=== PATIENT | female | born 1960 | race Caucasian/White ===

== ENCOUNTER → 2019-01-12 | Day surgery (SDC) | payer OTHER ==
[2019-01-11 10:59] LABS: BASOPHILS # (AUTO) 0.1 (0.0-0.1); BASOPHILS % 1.2 % (0.0-1.0); EOSINOPHILS # (AUTO) 0.1 (0.0-0.4); EOSINOPHILS % 1.2 % (0.0-6.0); HEMATOCRIT 40.5 % (34.2-44.1); HEMOGLOBIN 13.9 g/dL (12.0-16.0); LYMPHOCYTES % 24.3 % (18.0-39.1); MEAN CORPUSCULAR HEMOGLOBIN 34.8 pg (28-32); MEAN CORPUSCULAR HGB CONC 34.3 g/dL (31-35); MEAN CORPUSCULAR VOLUME 101.5 fL (81-99); MONOCYTES # (AUTO) 0.4 (0.2-0.8); MONOCYTES % 8.6 % (4.4-11.3); NEUTROPHILS # (AUTO) 2.6 (2.1-6.9); NEUTROPHILS % 64.5 % (38.7-80.0); PLATELET COUNT 246 x10e3/uL (140-360); RED BLOOD COUNT 3.99 x10e6/uL (3.6-5.1); RED CELL DISTRIBUTION WIDTH 15.4 % (11.7-14.4)
[~2019-01-12] MED LIST: ACETAMINOPHEN 1000 MG/100 ML IV ONE; BUPIVACAINE HCL 0.5% INJ 30 ML VIAL INJ ONE; CEFAZOLIN SOD 2 GM/D5W 50ML 50 ML IV ONE; DEXAMETHASONE SOD PHOS INJ 4 MG/ML VIAL ONE; FEMARA2.5 MG PO; FENTANYL CITRATE/PF 100MCG/2 ML INJ ONE; GABAPENTIN100 MG PO; LIDOCAINE HCL 2% LOCAL INJ 5 ML SDV VIAL INJ ONE; LISINOPRIL10 MG PO; METOPROLOL SUCC25 MG PO; MIDAZOLAM HCL 2 MG/2 ML VIAL ONE; NEXIUM40 MG PO; ONDANSETRON HCL INJ 2MG/ML 2ML 2 MG/ML VIAL ONE; PROPOFOL IV EMULSION 10 MG/ML 20 ML VIAL ONE; SEVOFLURANE INHAL SOLN 250 ML PEN BTL ONE; TRAZODONE HCL100 MG PO
--- OUTSIDE RECORDS SUMMARY | 2019-01-12 06:35 | XMS REPORT | Clinical Summary ---
Author Author [facility] Address Unknown Phone Unavailable Care Team Providers Care Head Of Precision Targeting Name Role Phone Camila Stringer PCP Allergies Comments Active Allergy Reactions Severity Noted Date Codeine Nausea And High 10/27/2014 Vomiting pepto bismol, codeine cough syrup Other Nausea And High 10/30/2014 Vomiting Bismuth Subsalicylate Nausea And High 08/29/2015 Vomiting Medications End Date Status Medication Sig Dispensed Refills Start Date Active letrozole (FEMARA) 2.5 mg Take 2.5 mg 0 tablet by mouth daily. Active metoprolol (LOPRESSOR) 50 Take 25 mg by 0 MG tablet mouth daily . Active amLODIPine (NORVASC) 10 Take 10 mg by 0 MG tablet mouth daily . Active lisinopril Take 20 mg by 0 (PRINIVIL,ZESTRIL) 20 MG mouth daily. tablet Active methocarbamol (ROBAXIN) Take 500 mg 0 500 MG tablet by mouth 4 (four) times daily. Active naproxen (NAPROSYN) 500 Take 500 mg 0 MG tablet by mouth 2 (two) times daily with breakfast and dinner. Active multivitamin per tablet Take 1 tablet 0 by mouth daily. 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 Capsular contracture of breast implant 05/01/2015 Acquired absence of breast 05/01/2015 History of breast cancer 05/01/2015 Angina pectoris 02/08/2015 Personal history of malignant neoplasm of breast 10/31/2014 Breast cancer 10/31/2014 Immunizations Name Dates Previously Given Next Due Influenza Three-TIV PF 5+ 09/11/2016 YR Influenza Three-TIV PF 5+ 08/24/2015 YRS Pneumococcal 08/31/2015 Polysaccharide (Pneumovax) Family History Medical History Relation Name Comments High blood pressure Mother Relation Name Status Comments Mother Social History Date Tobacco Use Types Packs/Day Years Used Former Smoker 17 Tobacco Cessation: Counseling Given: No Comments: quit smoking 2015 Alcohol Use Drinks/Week oz/Week Comments Yes 10 Glasses of 6.0 rarely - "2 when I go out with my friends" wine Sex Assigned at Date Recorded Not on file Industry Job Start Date Occupation Not on file Not on file Not on file Travel End Travel History Travel Start No recent travel history available. Last Filed Vital Signs Not on file Plan of Treatment Not on file Implants Device Identifier Shelf Expiration Date Model / Serial / Lot Implanted Type Area Manufactur er 09/25/2018 354-9212 / [id number] / [id number] Tissue Exp,Contour Cpx4 Plastics Left: Breast MENTOR Siltexsiltex Medium Height Style REGGIE 9200 350cc - [id number] Implanted: Qty: 1 on 10/31/2014 by Barrera Lamar III, MD 09/25/2018 354-9212 / [id number] / [id number] Tissue Exp,Contour Cpx4 Plastics Right: Breast MENTOR Siltexsiltex Medium Height Style REGGIE 9200 350cc - [id number] Implanted: Qty: 1 on 10/31/2014 by Barrera Lamar III, MD 07/15/2018 354-1208 / [id number] / [id number] Imp Mamm Mem Shape Mm 280cc - Plastics Right: Breast MENTOR:AES [id number] THETICS Implanted: Qty: 1 on 09/09/2016 by Barrera Alvarado III, MD 03/14/2019 354-1208 / [id number] / [id number] Imp Mamm Mem Shape Mm 280cc - Plastics Left: Breast MENTOR:AES [id number] THETICS Implanted: Qty: 1 on 09/09/2016 by Barrera Alvarado III, MD 11/30/2021 [id number] / [id number] / [id number] Imp Mamm Rnd Mod Plus Gel 325 Plastics Left: Breast MENTOR:AES 350-3251bc - [id number] THETICS Implanted: Qty: 1 on 02/03/2017 by Barrera Alvarado III, MD 11/30/2021 350-3251BC / [id number] / [id number] Imp Mamm Rnd Mod Plus Gel 325 Plastics Right: Breast MENTOR:AES 350-3251bc - [id number] THETICS Implanted: Qty: 1 on 02/03/2017 by Barrera Alvarado III, MD 06/24/2018 [id number] / / [id number] Alloderm Select Tissue Matrix Tissue Right: Breast LIFECELL [id number] Cm Graft/Subs Implanted: Qty: 1 on 09/09/2016 by Barrera Webb III, MD 06/14/2018 [id number] / / [id number] Alloderm Select Tissue Matrix Rtu Tissue Left: Breast LIFECELL 16 X 20 Cm Graft/Subs Implanted: Qty: 1 on 09/09/2016 by Barrera Webb III, MD 09/04/2019 334-1202 / [id number] / [id number] [place] Memory Shape Breast Implant Left: Breast MENTOR Medium Annalee, High Profile Implanted: Qty: 1 on 05/01/2015 by Barrera Lamar III, MD 08/09/2019 334-1202 / [id number] / [id number] Memory Shape Breast Implant Medium Right: Breast MENTOR Height, High Profile Implanted: Qty: 1 on 05/01/2015 by Barrera Lamar III, MD 05/25/2018 [id number] / / [id number] Alloderm Select Tissue Matrix Right: Breast LIFECELL Contour Medium Perforated Thin Implanted: Qty: 1 on 02/03/2017 by Barrera Lamar III, MD Explanted: Results Not on fileafter 01/11/2018 Insurance Payer Benefit Subscriber ID Type Phone Address Plan / Group MEDICAID MEDICAID xxxxxxxxx Medicaid [place] Advance Directives For more information, please contact: [address] [address] Date Inactivated Comments Code Status Date Activated 02/03/2017 5:12 PM Full Code 02/03/2017 6:34 AM This code status was determined by: Patient 09/11/2016 1:41 PM Full Code 09/09/2016 9:50 AM This code status was determined by: Patient 05/02/2015 5:18 PM Full Code 05/01/2015 4:44 PM This code status was determined by: Patient 11/14/2014 5:53 PM Full Code 10/31/2014 6:01 AM This code status was determined by: Patient
--- OUTSIDE RECORDS SUMMARY | 2019-01-12 06:38 | XMS REPORT | Summary of Care ---
Author Author [facility] Organization [facility] Address Unknown Phone Unavailable Encounter HQ Annientr_alidung(FIN) [id number] Date(s): 10/01/17 - 10/02/17 [facility] [address] [facility], [address] [place] [phone] Vital Signs No data available for this section Problem List Condition Effective Dates Status Health Status Informant Anxiety(Confirmed) Resolved Breast Active cancer(Confirmed) Clostridium Resolved difficile(Confirmed) Clostridium Active difficile(Confirmed) 1 Depression(Confirmed Resolved ) Hypertension(Confirm Resolved ed) 1Problem added by Discern Expert. Allergies, Adverse Reactions, Alerts Substance Reaction Severity Status NKDA Active Medications No data available for this section Results No data available for this section Immunizations Given and Recorded Vaccine Date Status Refusal Reason pneumococcal 23-valent vaccine 01/22/16 Given influenza virus vaccine, inactivated 08/10/14 Given Procedures Procedure Date Related Diagnosis Body Site Mastectomy1 Operation 1Bilateral Social History Social History Type Response Alcohol Current, Frequency: 1-2 times per week. Smoking Status Former smoker; Type: Cigarettes; Previous treatment: None; Ready to change: Yes; Concerns about tobacco use in household: Yes; Exposure to Tobacco Smoke None; Cigarette Smoking Last 365 Days Yes; Reg Smoking Cessation Counseling Yes; Tobacco use per day: 1; Number of years: 25; Total pack years: 25; Started at age: 1.0; Stopped at age: 1; Assessment and Plan No data available for this section
--- OUTSIDE RECORDS SUMMARY | 2019-01-12 06:38 | XMS REPORT | Summary of Care ---
Author Author [facility] Organization [facility] Address Unknown Phone Unavailable Encounter HQ Annientr_caty(FIN) [id number] Date(s): 10/28/17 - 10/29/17 [facility] Neurosurgery [facility] [address] [facility], [address] [place] [phone] Vital Signs No data available for this [...]
--- OUTSIDE RECORDS SUMMARY | 2019-01-12 06:38 | XMS REPORT | Summary of Care ---
Author Author [facility] Organization [facility] Address Unknown Phone Unavailable Encounter HQ Virginiar_caty(FIN) [id number] Date(s): 11/03/17 - 11/03/17 [facility] [address] [facility], [address] [place] [phone] Attending Physician: Art Ricardo MD Vital Signs No data available for this [...] Procedures Procedure Date Related Diagnosis Body Site Status Mastectomy1 Completed Operation Completed 1Bilateral Social History Social History Type Response [...] at age: 1.0; Stopped at age: 1; entered on: 04/15/17 Assessment and Plan No data available for this section
--- OUTSIDE RECORDS SUMMARY | 2019-01-12 06:38 | XMS REPORT | Summary of Care ---
Author Author [facility] Organization [facility] Neurosurgery [facility] Address Unknown Phone Unavailable Encounter HQ Virginiar_caty(FIN) [id number] Date(s): 10/28/17 - 10/29/17 [facility] [address], [address] [place] [phone] Vital Signs No data available for this [...]
--- OUTSIDE RECORDS SUMMARY | 2019-01-12 06:38 | XMS REPORT | Summary of Care ---
Author Author [facility] Neurosurgery [facility] Organization [facility] Neurosurgery [facility] Address Unknown Phone Unavailable Encounter HQ Annientr_alidung(FIN) [id number] Date(s): 10/01/17 - 10/02/17 [facility] Neurosurgery [facility] [address] [place] [phone] Vital Signs No data available for this [...]
--- OUTSIDE RECORDS SUMMARY | 2019-01-12 06:38 | XMS REPORT | Summary of Care ---
Author Author [facility]surgery [facility] Organization [facility] Neurosurgery [facility] Address Unknown Phone Unavailable Encounter HQ Annientr_caty(FIN) [id number] Date(s): 11/03/17 - 11/03/17 [facility] Neurosurgery [facility] [address] [facility] [place] [phone] Attending Physician: Art Ricardo MD Vital Signs [...] 0.0; Stopped at age: 1; entered on: 11/17/17 Assessment and Plan No data available for this section
--- OUTSIDE RECORDS SUMMARY | 2019-01-12 06:38 | XMS REPORT | CCD ---
Author Author Auto Generated Organization [facility] Address Unknown Phone Unavailable Care Team Providers Care Linoleum Printer Name Role Phone Marisol Fuller CP Allergies, Adverse Reactions, Alerts Substance Reaction Status NKDA Active Problem List Condition Effective Dates Status Anxiety Resolved Breast cancer Active Clostridium difficile Resolved Clostridium difficile1 Active Depression Resolved Hypertension Resolved 1Problem added by Discern Expert. Medications Medication Instructions Start Date End Date Status Taxotere + Sodium 100 mg, Route: IV, Drug form: INJ, 10/24/2013 10/24/2013 Completed Chloride 0.9% IV 250 ONCALL, Start date: 10/24/13 mL 8:30:00, Duration: 1 day, Stop date: 10/25/13 8:29:00(Same as: Taxotere) Use non-PVC bag and tubing set for administration. CHEMOTHERAPY. cyclophosphamide + 700 mg, Route: IV, Drug form: 10/24/2013 10/24/2013 Completed Sodium Chloride 0.9% PDR/INJ, ONCALL, Start date: IV 100 mL 10/24/13 8:30:00, Duration: 1 day, Stop date: 10/25/13 8:29:00CHEMOTHERAPY Taxotere + Sodium 100 mg, Route: IV, Drug form: INJ, 10/03/2013 10/30/2013 Discontinued Chloride 0.9% IV 250 ONCALL, Start date: 10/03/13 mL 10:00:00, Duration: 1 day, Stop date: 10/04/13 9:59:00(Same as: Taxotere) Use non-PVC bag and tubing set for administration. CHEMOTHERAPY. DOXOrubicin + Sodium 70 mg, 35 mL, Route: IV, Drug form: 10/24/2013 10/24/2013 Completed Chloride 0.9% IV 100 INJ, ONCALL, Start date: 10/24/13 mL 8:30:00, Duration: 1 day, Stop date: 10/25/13 8:29:00(Same as: Adriamycin) CHEMOTHERAPY cyclophosphamide + 700 mg, Route: IV, Drug form: 10/03/2013 10/30/2013 Discontinued Sodium Chloride 0.9% PDR/INJ, ONCALL, Start date: IV 100 mL 10/03/13 10:00:00, Duration: 1 day, Stop date: 10/04/13 9:59:00CHEMOTHERAPY Sodium Chloride 0.9% IV, 30 ml/hr, PRN, Start date: 10/02/2013 10/30/2013 Discontinued IV 10/02/13 10:00:00, Duration: 30, 250 ml Aloxi 0.25 mg, 5 mL, Route: IVP, Drug 10/24/2013 10/24/2013 Completed form: INJ, ONCALL, Start date: 10/24/13 8:30:00, Duration: 1 day, Stop date: 10/25/13 8:29:00(Same as: Aloxi) Aloxi 0.25 mg, 5 mL, Route: IVP, Drug 10/03/2013 10/30/2013 Discontinued form: INJ, ONCALL, Start date: 10/03/13 10:00:00, Duration: 1 day, Stop date: 10/04/13 9:59:00(Same as: Aloxi) heparin flush 500 unit, 5 mL, Route: IV, Drug 10/03/2013 10/24/2013 Completed form: SOLN, PRN, Start date: 10/03/13 10:00:00, Duration: 30 day, Stop date: 11/02/13 9:59:00(Same as: Heparin Lock Flush) DOXOrubicin + Sodium 70 mg, 35 mL, Route: IV, Drug form: 10/03/2013 10/30/2013 Discontinued Chloride 0.9% IV 100 INJ, ONCALL, Start date: 10/03/13 mL 10:00:00, Duration: 1 day, Stop date: 10/04/13 9:59:00(Same as: Adriamycin) CHEMOTHERAPY Vital Signs Most recent to oldest [Reference Range]: 1 2 Height 172.72 cm (09/30/2013 14:18:00) 172.72 cm (09/30/2013 14:15:00) Temperature Oral [96.4-99.1 DegF] 97.9 DegF (10/24/2013 09:33:00) 97.8 DegF (10/03/2013 11:00:00) Systolic Blood Pressure [90-140 mmHg] 146 mmHg *HI* (10/24/2013 09:33:00) 129 mmHg (10/03/2013 11:00:00) Diastolic Blood Pressure [60-90 mmHg] 91 mmHg *HI* (10/24/2013:33:00) 86 mmHg (10/03/2013 11:00:00) Respiratory Rate [14-20 BRMIN] 16 BRMIN (10/24/2013:33:00) 20 BRMIN (10/03/2013 11:00:00) Peripheral Pulse Rate [60-100 bpm] 88 bpm (10/24/2013:33:00) 78 bpm (10/03/2013 11:00:00) Weight 62.727 kg (09/30/2013 14:18:00) 62.727 kg (09/30/2013 14:15:00) Results CHEMISTRY Most recent to oldest [Reference Range]: 1 Sodium Lvl [135-145 mEq/L] 139 mEq/L (10/21/2013 12:55:00) Potassium Lvl [3.5-5.1 mEq/L] 4.4 mEq/L (10/21/2013 12:55:00) Chloride Lvl [95-109 mEq/L] 104 mEq/L (10/21/2013 12:55:00) CO2 [24-32 mEq/L] 25 mEq/L (10/21/2013 12:55:00) AGAP [10.0-20.0 mEq/L] 14.4 mEq/L (10/21/2013 12:55:00) Creatinine Lvl [0.5-1.4 mg/dL] 0.6 mg/dL (10/21/2013 12:55:00) eGFR 104 mL/min/1.73m2 1 *NA* (10/21/2013 12:55:00) BUN [7-22 mg/dL] 11 mg/dL (10/21/2013 12:55:00) B/C Ratio [6-25] 18 (10/21/2013 12:55:00) Glucose Lvl [70-99 mg/dL] 80 mg/dL 2 (10/21/2013 12:55:00) Total Protein [6.4-8.4 g/dL] 6.0 g/dL *LOW* (10/21/2013 12:55:00) Albumin Lvl [3.5-5.0 g/dL] 3.6 g/dL (10/21/2013 12:55:00) Globulin [2.0-4.0 g/dL] 2.4 g/dL (10/21/2013 12:55:00) A/G Ratio [0.7-1.6] 1.5 (10/21/2013 12:55:00) Calcium Lvl [8.5-10.5 mg/dL] 8.7 mg/dL (10/21/2013:55:00) Magnesium Lvl [1.8-2.4 mg/dL] 1.8 mg/dL (10/21/2013 12:55:00) ALT [0-65 unit/L] 16 unit/L (10/21/2013 12:55:00) AST [0-37 unit/L] 33 unit/L (10/21/2013 12:55:00) Alk Phos [39-136 unit/L] 102 unit/L (10/21/2013 12:55:00) Bili Total [0.2-1.3 mg/dL] 0.4 mg/dL (10/21/2013 12:55:00) 1Result Comment: The eGFR is calculated using the CKD-EPI formula. In most young, healthy individuals the eGFR will be >90 mL/min/1.73m2. The eGFR declines with age. An eGFR of 60-89 may be normal in some populations, particularly the elderly, for whom the CKD-EPI formula has not been extensively validated. Use of the eGFR is not recommended in the following populations: Individuals with unstable creatinine concentrations, including patients and those with serious co-morbid conditions. Patients with extremes in muscle mass or diet. The data above are obtained from the National Kidney Disease Education Program ( NKDEP) which additionally recommends that when the eGFR is used in patients with extremes of body mass index for purposes of drug dosing, the eGFR should be mul tiplied by the estimated BMI. 2Interpretive Data: Adult reference range values reflect the clinical guidelines of the [place] [employer]. HEMATOLOGY Most recent to oldest [Reference Range]: 1 WBC [3.7-10.4 K/CMM] 5.8 K/CMM (10/21/2013 12:55:00) RBC [4.20-5.40 M/CMM] 3.36 M/CMM *LOW* (10/21/2013 12:55:00) Hgb [12.0-16.0 g/dL] 12.1 g/dL (10/21/2013 12:55:00) Hct [36.0-48.0 %] 36.3 % (10/21/2013 12:55:00) MCV [81.0-99.0 fL] 107.9 fL *HI* (10/21/2013 12:55:00) MCH [27.0-31.0 pg] 36.0 pg *HI* (10/21/2013 12:55:00) MCHC [32.0-36.0 g/dL] 33.4 g/dL (10/21/2013 12:55:00) RDW [11.5-14.5 %] 19.8 % *HI* (10/21/2013 12:55:00) Platelet [133-450 K/CMM] 421 K/CMM (10/21/2013 12:55:00) MPV [7.4-10.4 fL] 7.1 fL *LOW* (10/21/2013 12:55:00) Segs [45.0-75.0 %] 73.9 % (10/21/2013 12:55:00) Lymphocytes [20.0-40.0 %] 16.6 % *LOW* (10/21/2013 12:55:00) Monocytes [2.0-12.0 %] 9.0 % (10/21/2013 12:55:00) Eosinophils [0.0-4.0 %] 0.0 % (10/21/2013 12:55:00) Basophils [0.0-1.0 %] 0.5 % (10/21/2013 12:55:00) Segs-Bands # [1.5-8.1 K/CMM] 4.3 K/CMM (10/21/2013 12:55:00) Lymphocytes # [1.0-5.5 K/CMM] 1.0 K/CMM (10/21/2013 12:55:00) Monocytes # [0.0-0.8 K/CMM] 0.5 K/CMM (10/21/2013 12:55:00) Eosinophils # [0.0-0.5 K/CMM] 0.0 K/CMM (10/21/2013 12:55:00) Basophils # [0.0-0.2 K/CMM] 0.0 K/CMM (10/21/2013 12:55:00)
--- OUTSIDE RECORDS SUMMARY | 2019-01-12 06:38 | XMS REPORT | Continuity of Care Document ---
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 Dosing Weight 53.182, kg, PRN as needed for allergy symptoms, Start date: 08/09/14 14:07:00, Stop date: 09/08/14 14:06:00Notes: (Same as: Benadryl) No Longer Active 08/09/2014 [facility] Valium 5 mg, 1 tab, Route: PO, Drug form: TAB, Q6H, Dosing Weight 53.182, kg, PRN as needed for anxiety, Start date: 08/09/14 14:07:00, Stop date: 09/08/14 14:06:00Notes: (Same as: Valium) No Longer Active 08/09/2014 [facility] Aluminum Hydroxide / Magnesium Hydroxide / Simethicone 5 mL, Route: PO, Drug Form: SUSP, Dosing Weight 53.182, kg, QID, PRN as needed for indigestion, Start date: 08/09/14 14:06:00, Stop date: 09/08/14 14:05:00Notes: (aluminum hydroxide-magnesium hyd-simethicone [phone]/5ml 30 ml ud VAN) No Longer Active 08/09/2014 [facility] Acetaminophen 325 MG / Hydrocodone Bitartrate 10 MG Oral Tablet [[place] 10/325] 1 tab, Route: PO, Drug Form: TAB, Dosing Weight 53.182, kg, Q4H, PRN Pain Score 4-6, Start date: 08/09/14 14:06:00, Stop date: 09/08/14 14:05:00Notes: Do not exceed 4gm/day of acetaminophen. (Same as: [place] 325/10) No Longer Active 08/09/2014 [facility] Acetaminophen 325 MG / Hydrocodone Bitartrate 10 MG Oral Tablet [[place] 10/325] 1 tab, PO, Q4H, for pain, # 24 tab, 0 Refill(s) Active 08/09/2014 [facility] Zofran 4 mg, 2 mL, Route: IV, Drug form: INJ, Q4H, Dosing Weight 53.182, kg, PRN Nausea, Start date: 08/09/14 8:20:00, Duration: 30 day, Stop date: 09/08/14 8:19:00Notes: (Same as: Zofran) No Longer Active 08/09/2014 [facility] Acetaminophen 300 MG / Codeine Phosphate 30 MG Oral Tablet [Tylenol with Codeine #3] 1 tab, Route: PO, Drug Form: TAB, Dosing Weight 53.182, kg, Q4H, PRN Pain Score 1-3, Start date: 08/09/14 6:30:00, Duration: 30 day, Stop date: 09/08/14 6:29:00Notes: Do not exceed 4gm/day of acetaminophen. (Same as: Tylenol with Codeine # 3) Inactive 08/09/2014 [facility] Morphine 4 mg, 2 mL, Route: IVP, Drug form: INJ, Q4H, Dosing Weight 53.182, kg, PRN Pain Score 7-10, Start date: 08/09/14 6:25:00, Duration: 30 day, Stop date: 09/08/14 6:24:00Notes: (Same as:MORPhine Sulfate) No Longer Active 08/09/2014 [facility] normal saline 0.9% IV 1,000 mL 1,000 mL, Rate: 100 ml/hr, Infuse over: 10 hr, Route: IV, Dosing Weight 53.182 kg, Total Volume: 1,000, Start date: 08/09/14 5:15:00, Duration: 30 day, Stop date: 09/08/14 5:14:00 No Longer Active 08/09/2014 [facility] Sodium Chloride 0.154 MEQ/ML Injectable Solution 1,000 mL, 1,000 ml/hr, Infuse Over: 1 hr, Route: IV, ONCE, Priority: STAT, Dosing Weight 53.182 kg, Start date: 08/09/14 5:12:00, Duration: 1 doses or times, Stop date: 08/09/14 5:12:00 Inactive 08/09/2014 [facility] Dilaudid 0.5 mg, Route: IVP, ONCE, Dosing Weight 53.182, kg, Priority: STAT, Start date: 08/09/14 5:11:00, Stop date: 08/09/14 5:11:00 Inactive 08/09/2014 [facility] Sumatriptan 5 mg, 0.42 mL, Route: SUB-Q, Drug form: INJ, ONCE, Dosing Weight 53.182, kg, Start date: 08/09/14 4:29:00, Stop date: 08/09/14 4:29:00Notes: For SUBCUTANEOUS use only Inactive 08/09/2014 [facility] letrozole 2.5 mg, 1 tab, Route: PO, Drug form: TAB, Daily, Dosing Weight 47.727, kg, Start date: 05/08/14 9:00:00, Duration: 30 day, Stop date: 06/06/14 9:00:00Notes: (Same as:Christian) No Longer Active 05/08/2014 [facility] Trazodone Hydrochloride 50 MG Oral Tablet 50 mg, 1 tab, Route: PO, Drug form: TAB, Bedtime, Dosing Weight 47.727, kg, PRN Sleep, Start date: 05/06/14 21:43:00, Duration: 30 day, Stop date: 06/05/14 21:42:00Notes: (Same As: [place]) No Longer Active 05/07/2014 [facility] Acetaminophen 325 MG / Hydrocodone Bitartrate 10 MG Oral Tablet [[place] 10/325] 1 tab, Route: PO, Drug Form: TAB, Dosing Weight 47.727, kg, Q4H, PRN Pain, Start date: 05/06/14 19:37:00, Duration: 30 day, Stop date: 06/05/14 19:36:00Notes: (Same as: [place] 325/10) No Longer Active 05/07/2014 [facility] Lyrica 75 mg, 1 cap, Route: PO, Drug form: CAP, Q12H, Dosing Weight 47.727, kg, Start date: 05/05/14 21:00:00, Duration: 30 day, Stop date: 06/04/14 9:00:00Notes: (Same as: Lyrica) No Longer Active 05/06/2014 [facility] Ketorolac Tromethamine 15 MG/ML Injectable Solution 15 mg, 1 mL, Route: IV, Drug form: INJ, Q6H, Dosing Weight 47.727, kg, Start date: 05/05/14 12:00:00, Duration: 4 day, Stop date: 05/09/14 6:00:00Notes: (Same as:Toradol) IV bolus must be given >15 seconds. Give IM administration slowly and deeply into the muscle. Not for use > 4 days. No Longer Active 05/05/2014 [facility] Lexapro 10 mg, 1 tab, Route: PO, Drug form: TAB, QAM, Dosing Weight 47.727, kg, Start date: 05/05/14 9:00:00, Duration: 30 day, Stop date: 06/03/14 9:00:00Notes: (Same as: Lexapro) No Longer Active 05/05/2014 [facility] Zofran 4 mg, 1 tab, Route: PO, Drug form: TAB, Q6H, Dosing Weight 47.727, kg, PRN Vomiting, Start date: 05/05/14 6:11:00, Duration: 30 day, Stop date: 06/04/14 6:10:00Notes: (Same as: Zofran) No Longer Active 05/05/2014 [facility] Diphenhydramine 25 mg, 10 mL, Route: PO, Drug form: LIQ, QID, Dosing Weight 47.727, kg, PRN Itching, Start date: 05/05/14 6:11:00, Duration: 30 day, Stop date: 06/04/14 6:10:00Notes: (Same as: Benadryl) No Longer Active 05/05/2014 [facility] Valium 10 mg, 2 tab, Route: PO, Drug form: TAB, Q6H, Dosing Weight 47.727, kg, PRN Anxiety, Start date: 05/05/14 6:11:00, Stop date: 06/04/14 6:10:00Notes: (Same as: Valium) No Longer Active 05/05/2014 [facility] Aluminum Hydroxide / Magnesium Hydroxide / Simethicone 5 mL, Route: PO, Drug Form: SUSP, Dosing Weight 47.727, kg, QID, PRN Indigestion, Start date: 05/05/14 6:10:00, Duration: 30 day, Stop date: 06/04/14 6:09:00, dyspepsiaNotes: (aluminum hydroxide-magnesium hyd-simethicone [phone]/5ml 30 ml ud VAN) No Longer Active 05/05/2014 [facility] Hydromorphone 0.5 mg, 0.5 mL, Route: IV, Drug form: INJ, Q3H, Dosing Weight 47.727, kg, PRN Pain Score 6-10, Start date: 05/04/14 18:09:00, Duration: 30 day, Stop date: 06/03/14 18:08:00 No Longer Active 05/04/2014 [facility] letrozole 2.5 mg oral tablet 2.5 mg=1 tab, PO, Daily, 0 Refill(s) Active 05/04/2014 [facility] Saline Flush 0.9% 5 ml, Route: IVP, Drug Form: INJ, Dosing Weight 62.727, kg, PRN, PRN Line Flush, Start date: 05/04/14 10:33:00, Duration: 30 day, Stop date: 06/03/14 10:32:00Notes: (Same as: BD Posiflush) No Longer Active 05/04/2014 [facility] D5W 1/2NS + KCL 20mEq/L 1000ml (Premix) 1,000 mL 1,000 mL, Rate: 100 ml/hr, Infuse over: 10 hr, Route: IV, Dosing Weight 62.727 kg, Total Volume: 1,000, Start date: 05/04/14 10:33:00, Duration: 30 day, Stop date: 06/03/14 10:32:00Notes: PREMIX IV - Do Not Alter No Longer Active 05/04/2014 [facility] Acetaminophen 650 mg, 2 tab, Route: PO, Drug form: TAB, Q4H, Dosing Weight 62.727, kg, PRN Pain 1-3/Temp > 100.4 F, Start date: 05/04/14 10:33:00, Duration: 30 day, Stop date: 06/03/14 10:32:00Notes: Do not exceed 4 gm/day. (Same as: Tylenol) No Longer Active 05/04/2014 [facility] Docusate 100 mg, 1 cap, Route: PO, Drug form: CAP, BID, Dosing Weight 62.727, kg, PRN as needed for constipation, Start date: 05/04/14 10:33:00, Duration: 30 day, Stop date: 06/03/14 10:32:00Notes: (Same as: Colace) (Do Not Crush) No Longer Active 05/04/2014 [facility] Taxotere + Sodium Chloride 0.9% IV 250 mL 100 mg, Route: IV, Drug form: INJ, ONCALL, Start date: 10/24/13 8:30:00, Duration: 1 day, Stop date: 10/25/13 8:29:00(Same as: Taxotere) Use non-PVC bag and tubing set for administration. CHEMOTHERAPY. Inactive [facility] 10/24/2013 [facility] cyclophosphamide + Sodium Chloride 0.9% IV 100 mL 700 mg, Route: IV, Drug form: PDR/INJ, ONCALL, Start date: 10/24/13 8:30:00, Duration: 1 day, Stop date: 10/25/13 8:29:00CHEMOTHERAPY Inactive [facility] 10/24/2013 [facility] DOXOrubicin + Sodium Chloride 0.9% IV 100 mL 70 mg, 35 mL, Route: IV, Drug form: INJ, ONCALL, Start date: 10/24/13 8:30:00, Duration: 1 day, Stop date: 10/25/13 8:29:00(Same as: Adriamycin) CHEMOTHERAPY Inactive [facility] 10/24/2013 [facility] Aloxi 0.25 mg, 5 mL, Route: IVP, Drug form: INJ, ONCALL, Start date: 10/24/13 8:30:00, Duration: 1 day, Stop date: 10/25/13 8:29:00(Same as: Aloxi) Inactive [facility] 10/24/2013 [facility] Taxotere + Sodium Chloride 0.9% IV 250 mL 100 mg, Route: IV, Drug form: INJ, ONCALL, Start date: 10/03/13 10:00:00, Duration: 1 day, Stop date: 10/04/13 9:59:00(Same as: Taxotere) Use non-PVC bag and tubing set for administration. CHEMOTHERAPY. No Longer Active [facility] 10/03/2013 [facility] cyclophosphamide + Sodium Chloride 0.9% IV 100 mL 700 mg, Route: IV, Drug form: PDR/INJ, ONCALL, Start date: 10/03/13 10:00:00, Duration: 1 day, Stop date: 10/04/13 9:59:00CHEMOTHERAPY No Longer Active [facility] 10/03/2013 [facility] Aloxi 0.25 mg, 5 mL, Route: IVP, Drug form: INJ, ONCALL, Start date: 10/03/13 10:00:00, Duration: 1 day, Stop date: 10/04/13 9:59:00(Same as: Aloxi) No Longer Active [facility] 10/03/2013 [facility] heparin flush 500 unit, 5 mL, Route: IV, Drug form: SOLN, PRN, Start date: 10/03/13 10:00:00, Duration: 30 day, Stop date: 11/02/13 9:59:00(Same as: Heparin Lock Flush) No Longer Active [facility] 10/03/2013 [facility] DOXOrubicin + Sodium Chloride 0.9% IV 100 mL 70 mg, 35 mL, Route: IV, Drug form: INJ, ONCALL, Start date: 10/03/13 10:00:00, Duration: 1 day, Stop date: 10/04/13 9:59:00(Same as: Adriamycin) CHEMOTHERAPY No Longer Active [facility] 10/03/2013 [facility] Sodium Chloride 0.9% IV IV, 30 ml/hr, PRN, Start date: 10/02/13 10:00:00, Duration: 30, 250 ml No Longer Active [facility] 10/02/2013 [facility] acyclovir 400 mg, 2 cap, Route: PO, Drug form: CAP, [id number], Dosing Weight 52.727, kg, Start date: 09/21/13 22:00:00, Duration: 30 day, Stop date: 10/21/13 10:00:00(Same as: Zovirax) No Longer Active [facility] 09/22/2013 [facility] Neupogen 480 microgram, 1.6 mL, Route: SUB-Q, Drug form: INJ, Daily, Dosing Weight 52.727, kg, Start date: 09/21/13 9:00:00, Duration: 30 day, Stop date: 10/20/13 9:00:00(Same as: Neupogen) No Longer Active [facility] 09/21/2013 [facility] maalox/benadryl/lidocaine 1:1:1 120ml 5 mL, Route: PO, Drug Form: LIQ, Q4H, PRN Mouth Pain, Start date: 09/20/13 21:04:00, Stop date: 10/20/13 21:03:00Maalox 40ml + Benadryl 40ml + lidocaine viscous 40ml Shake well before use. No Longer Active [facility] 09/21/2013 [facility] magic mouth wash Route: PO, Dosing Weight 52.727, kg, ABXQ4H, PRN Mouth Pain, Start date: 09/20/13 20:35:00, Duration: 30 day, Stop date: 10/20/13 20:34:00 Inactive [facility] 09/21/2013 [facility] NS (Bolus) IV 250 mL 250 mL, Rate: 250 ml/hr, Infuse over: 1 hr, Route: IV, Dosing Weight 52.727 kg, Total Volume: 250, Priority: STAT, Start date: 09/20/13 20:31:00, Duration: 1 doses or times, Stop date: 09/20/13 21:30:00, Bolus DoseBolus Dose Inactive [facility] 09/21/2013 [facility] Lexapro 10 mg, 1 tab, Route: PO, Drug form: TAB, QAM, Dosing Weight 52.727, kg, Start date: 09/20/13 9:00:00, Duration: 30 day, Stop date: 10/19/13 9:00:00(Same as: Lexapro) No Longer Active [facility] 09/20/2013 [facility] morphine Sulfate 30 mg, 1 tab, Route: PO, Drug form: ERTAB, Q12H, Dosing Weight 52.727, kg, Start date: 09/19/13 21:00:00, Duration: 30 day, Stop date: 10/19/13 9:00:00Do not crush (Same as:Oramorph SR, MS Contin) No Longer Active [facility] 09/20/2013 [facility] Valium 10 mg, 2 tab, Route: PO, Drug form: TAB, Q6H, PRN Anxiety, Start date: 09/19/13 19:42:00, Duration: 30 day, Stop date: 10/19/13 19:41:00(Same as: Valium) No Longer Active [facility] 09/20/2013 [facility] Al hydroxide/Mg hydroxide/simethicone 30 mL, Route: PO, Drug Form: SUSP, Dosing Weight 52.727, kg, QID, PRN Indigestion, Start date: 09/19/13 19:36:00, Duration: 30 day, Stop date: 10/19/13 19:35:00(aluminum hydroxide-magnesium hyd-simethicone [phone]/5ml 30 ml ud VAN) No Longer Active [facility] 09/20/2013 [facility] Zofran 4 mg, 1 tab, Route: PO, Drug form: TAB, Q6H, Dosing Weight 52.727, kg, PRN as needed for nausea/vomiting, Start date: 09/19/13 19:35:00, Duration: 30 day, Stop date: 10/19/13 19:34:00(Same as: Zofran) No Longer Active [facility] 09/20/2013 [facility] diphenhydrAMINE 25 mg, 10 mL, Route: PO, Drug form: LIQ, QID, Dosing Weight 52.727, kg, PRN Other -See Comment, Start date: 09/19/13 19:35:00, Duration: 30 day, Stop date: 10/19/13 19:34:00, as needed for sore throat(Same as: Benadryl) No Longer Active [facility] 09/20/2013 [facility] Valium 5 mg, 0.5 tab, Route: PO, Drug form: TAB, Q6H, Dosing Weight 52.727, kg, PRN as needed for anxiety, Start date: 09/19/13 19:34:00, Duration: 30 day, Stop date: 10/19/13 19:33:00(Same as: Valium) No Longer Active [facility] 09/20/2013 [facility] [place] 10/325 oral tablet 1 tab, Route: PO, Drug Form: TAB, Dosing Weight 52.727, kg, Q6H, PRN Pain Score 4-6, Start date: 09/19/13 19:34:00, Duration: 30 day, Stop date: 10/19/13 19:33:00Do not exceed 4gm/day of acetaminophen. (Same as: [place] 325/10) No Longer Active [facility] 09/20/2013 [facility] Benadryl [facility] Allergy 12.5 mg/5 mL oral liquid 25 mg, 10 mL, PO, QID, PRN, as needed for sore throat, Substitution Allowed Active 09/20/2013 [facility] Maalox Max oral suspension 5 ml, PO, QID, PRN, 200 ml, for indigestion, Substitution Allowed, Maintenance, SUSP Active 09/20/2013 [facility] Flagyl 250 mg oral tablet 250 mg, 1 tab, PO, TID, 30 tab, Substitution Allowed, TAB No Longer Active 09/20/2013 [facility] Zofran 4 mg oral tablet 4 mg, 1 tab, PO, Q6H, PRN, 10 tab, as needed for nausea/vomiting, Substitution Allowed Active 09/20/2013 [facility] morphine Sulfate 30 mg, PO, Q12H, Substitution Allowed Active 09/20/2013 [facility] Valium 10 mg oral tablet 0.5-1 tab, PO, Q6H, PRN, as needed for anxiety, Substitution Allowed, TAB Active 09/20/2013 [facility] hydrochlorothiazide-lisinopril 12.5 mg-20 mg oral tablet 1 tab, PO, Daily, 30 tab, Substitution Allowed, Maintenance, TAB No Longer Active 09/20/2013 [facility] temazepam 30 mg, 2 cap, Route: PO, Drug form: CAP, Bedtime, Dosing Weight 62.273, kg, PRN Sleep, Start date: 09/19/13 14:09:00, Duration: 30 day, Stop date: 10/19/13 14:08:00(Same As: Restoril) No Longer Active [facility] 09/19/2013 [facility] Lomotil oral tablet 1 tab, Route: PO, Drug Form: TAB, Dosing Weight 62.273, kg, QID, PRN Loose Stools, Start date: 09/19/13 14:08:00, Duration: 30 day, Stop date: 10/19/13 14:07:00(Same As: Lomotil) MAX Adult dose=8 tabs/day No Longer Active [facility] 09/19/2013 [facility] Saline Flush 0.9% 5 ml, Route: IVP, Drug Form: INJ, Dosing Weight 62.273, kg, PRN, PRN Line Flush, Start date: 09/19/13 14:02:00, Duration: 30 day, Stop date: 10/19/13 14:01:00(Same as: BD Posiflush) No Longer Active [facility] 09/19/2013 [facility] D5W 1/2NS + KCL 20mEq/L 1000ml (Premix) 1,000 mL 1,000 mL, Rate: 150 ml/hr, Infuse over: 6.7 hr, Route: IV, Dosing Weight 62.273 kg, Total Volume: 1,000, Start date: 09/19/13 14:02:00, Stop date: 10/19/13 14:01:00PREMIX IV - Do Not Alter No Longer Active [facility] 09/19/2013 [facility] docusate 100 mg, 1 cap, Route: PO, Drug form: CAP, BID, Dosing Weight 62.273, kg, PRN as needed for constipation, Start date: 09/19/13 14:02:00, Duration: 30 day, Stop date: 10/19/13 14:01:00(Same as: Colace) (Do Not Crush) No Longer Active [facility] 09/19/2013 [facility] acetaminophen 650 mg, 2 tab, Route: PO, Drug form: TAB, Q4H, Dosing Weight 62.273, kg, PRN Pain 1-3/Temp > 100.4 F, Start date: 09/19/13 14:02:00, Duration: 30 day, Stop date: 10/19/13 14:01:00Do not exceed 4 gm/day. (Same as: Tylenol) No Longer Active [facility] 09/19/2013 [facility] DOXOrubicin + Sodium Chloride 0.9% IV 100 mL 70 mg, 35 mL, Route: IV, Drug form: INJ, ONCALL, Start date: 09/12/13 9:00:00, Duration: 1 day, Stop date: 09/13/13 8:59:00(Same as: Adriamycin) CHEMOTHERAPY Inactive [facility] 09/12/2013 [facility] Taxotere + Sodium Chloride 0.9% IV 250 mL 100 mg, Route: IV, Drug form: INJ, ONCALL, Start date: 09/12/13 9:00:00, Duration: 1 day, Stop date: 09/13/13 8:59:00(Same as: Taxotere) Use non-PVC bag and tubing set for administration. CHEMOTHERAPY. Inactive [facility] 09/12/2013 [facility] cyclophosphamide + Sodium Chloride 0.9% IV 100 mL 700 mg, Route: IV, Drug form: PDR/INJ, ONCALL, Start date: 09/12/13 9:00:00, Duration: 1 day, Stop date: 09/13/13 8:59:00CHEMOTHERAPY No Longer Active [facility] 09/12/2013 [facility] Taxotere + Sodium Chloride 0.9% IV 250 mL 100 mg, Route: IV, Drug form: INJ, ONCALL, Start date: 08/22/13 18:00:00, Duration: 1 day, Stop date: 08/23/13 17:59:00(Same as: Taxotere) Use non-PVC bag and tubing set for administration. CHEMOTHERAPY. No Longer Active [facility] 08/22/2013 [facility] cyclophosphamide + Sodium Chloride 0.9% IV 100 mL 700 mg, Route: IV, Drug form: PDR/INJ, ONCALL, Start date: 08/22/13 10:00:00, Duration: 1 day, Stop date: 08/23/13 9:59:00CHEMOTHERAPY No Longer Active [facility] 08/22/2013 [facility] Aloxi 0.25 mg, 5 mL, Route: IVP, Drug form: INJ, PRN, Start date: 08/22/13 10:00:00, Duration: 30 day, Stop date: 09/21/13 8:59:00(Same as: Aloxi) No Longer Active [facility] 08/22/2013 [facility] Sodium Chloride 0.9% IV IV, 30 ml/hr, PRN, Start date: 08/22/13 10:00:00, Duration: 30, 250 ml No Longer Active [facility] 08/22/2013 [facility] DOXOrubicin + Sodium Chloride 0.9% IV 100 mL 70 mg, 35 mL, Route: IV, Drug form: INJ, ONCALL, Start date: 08/22/13 10:00:00, Duration: 1 day, Stop date: 08/23/13 9:59:00(Same as: Adriamycin) CHEMOTHERAPY No Longer Active [facility] 08/22/2013 [facility] heparin flush 500 unit, 5 mL, Route: IV, Drug form: SOLN, PRN, Start date: 08/22/13 10:00:00, Duration: 30 day, Stop date: 09/21/13 8:59:00(Same as: Heparin Lock Flush) No Longer Active [facility] 08/22/2013 [facility] METRONIDazole 500 mg oral tablet 500 mg, 1 tab, PO, ABXQ8H, 30 tab, Substitution Allowed, TAB Active [facility] 08/13/2013 [facility] MS Contin 15 mg, 1 tab, Route: PO, Drug form: ERTAB, Q8H, Dosing Weight 51.364, kg, Start date: 08/11/13 16:00:00, Duration: 30 day, Stop date: 09/10/13 8:00:00Do not crush (Same as:Oramorph SR, MS Contin) No Longer Active [facility] 08/11/2013 [facility] Flagyl 500 mg, 1 tab, Route: PO, Drug form: TAB, ABXQ8H, Dosing Weight 51.364, kg, Start date: 08/11/13 15:00:00, Duration: 30 day, Stop date: 09/10/13 7:00:00(Same as: Flagyl) Take with food/ avoid alcohol No Longer Active [facility] 08/11/2013 [facility] Pepcid 20 mg, 1 tab, Route: PO, Drug form: TAB, Q12H, Start date: 08/10/13 21:00:00, Duration: 30 day, Stop date: 09/09/13 9:00:00(Same as: Pepcid) No Longer Active [facility] 08/11/2013 [facility] MS Contin 15 mg, 1 tab, Route: PO, Drug form: ERTAB, Q12H, Dosing Weight 51.364, kg, Start date: 08/10/13 21:00:00, Duration: 30 day, Stop date: 09/09/13 9:00:00Do not crush (Same as:Oramorph SR, MS Contin) No Longer Active [facility] 08/11/2013 [facility] Neupogen 480 microgram, 1.6 mL, Route: SUB-Q, Drug form: INJ, ONCE, Start date: 08/09/13 18:30:00, Stop date: 08/09/13 18:30:00(Same as: Neupogen) Inactive [facility] 08/09/2013 [facility] nystatin-triamcinolone topical Route: TOP, BID, Drug form: CRM, PRN Irritation, Start date: 08/09/13 17:23:00, Duration: 30 day, Stop date: 09/08/13 17:22:00(nystatin-triamcinolone 125515 units/g-0.1% top CRM 60 gm ) No Longer Active Rahim 08/09/2013 [facility] Lexapro 10 mg, 1 tab, Route: PO, Drug form: TAB, QAM, Dosing Weight 51.364, kg, Start date: 08/09/13 9:00:00, Duration: 30 day, Stop date: 09/07/13 9:00:00(Same as: Lexapro) No Longer Active Rahim 08/09/2013 [facility] Questran 4 gm, 1 pkt, Route: PO, Drug form: PDR/REC, BID, Dosing Weight 51.364, kg, Start date: 08/09/13 9:00:00, Duration: 30 day, Stop date: 09/07/13 17:00:00(Same As: Questran) No Longer Active Rahim 08/09/2013 [facility] Pepcid 20 mg, 2 mL, Route: IVP, Drug form: INJ, Q12H, Start date: 08/08/13 21:00:00, Duration: 30 day, Stop date: 09/07/13 9:00:00(Same as: Pepcid) Can be dilute in 5-10cc NS IVP: Slow IV push over at least 2 minutes. No Longer Active Alina 08/09/2013 [facility] simethicone 80 mg, 1 tab, Route: CHEW, Drug form: CHEWTAB, QID, Dosing Weight 51.364, kg, PRN Gas, Start date: 08/08/13 20:07:00, Duration: 30 day, Stop date: 09/07/13 20:06:00(Same as: Mylicon) No Longer Active [facility] 08/09/2013 [facility] potassium chloride 20 mEq, 100 mL, Route: IVPB, Drug form: INJ, ONCE, Dosing Weight 51.364, kg, Total dose=20mEq, Start date: 08/08/13 17:27:00, Duration: 1 doses or times, Stop date: 08/08/13 17:27:00, For K=3.5 - 3.9 mEq/LFor K=3.5 - 3.9 mEq/L(Same as: KCL) Infuse no faster than 10 mEq/hr if given peripherally. Inactive [facility] 08/08/2013 [facility] Valium 5 mg, 1 tab, Route: PO, Drug form: TAB, Bedtime, Dosing Weight 51.364, kg, PRN as needed for anxiety, Start date: 08/08/13 17:26:00, Duration: 30 day, Stop date: 09/07/13 17:25:00(Same as: Valium) No Longer Active [facility] 08/08/2013 [facility] [place] 10/325 oral tablet 1 tab, Route: PO, Drug Form: TAB, Dosing Weight 51.364, kg, TID, PRN Pain Score 1-3, Start date: 08/08/13 17:26:00, Duration: 30 day, Stop date: 09/07/13 17:25:00Do not exceed 4gm/day of acetaminophen. (Same as: [place] 325/10) [facility] Neupogen 480 microgram, 1.6 mL, Route: SUB-Q, Drug form: INJ, ONCE, Start date: 08/08/13 17:00:00, Stop date: 08/08/13 17:00:00(Same as: Neupogen) Inactive [place] 08/08/2013 [facility] Bactroban 1 appl, Route: TOP, BID, Drug form: OINT, Start date: 08/08/13 17:00:00, Duration: 30 day, Stop date: 09/07/13 9:00:00 No Longer Active [place] 08/08/2013 [facility] nitroglycerin 0.4 mg sublingual tablet 0.4 mg, 1 tab, Route: SL, Drug form: TAB, Q5Min, PRN Chest Pain, Start date: 08/08/13 16:50:00, Duration: 30 day, Stop date: 09/07/13 15:49:00(Same as:Nitroquick, Nitrostat) "Do Not Crush" Sublingual tablet No Longer Active [facility] 08/08/2013 [facility] atropine 0.5 mg, 5 mL, Route: IVP, Drug form: INJ, PRN, PRN Bradycardia, Start date: 08/08/13 16:50:00, Duration: 30 day, Stop date: 09/07/13 15:49:00 No Longer Active Rahim 08/08/2013 [facility] Saline Flush 0.9% 5 ml, Route: IVP, Drug Form: INJ, Dosing Weight 52.273, kg, PRN, PRN Line Flush, Start date: 08/08/13 16:17:00, Duration: 30 day, Stop date: 09/07/13 15:16:00(Same as: BD Posiflush) No Longer [facility] 08[facility]2013 [facility] Sodium Chloride 0.9% IV 1000 mL 1,000 mL, Rate: 125 ml/hr, Infuse over: 8 hr, Route: IV, Dosing Weight 52.273 kg, Total Volume: 1,000, Start date: 08/08/13 16:17:00, Duration: 30 day, Stop date: 09/07/13 16:16:00 Inactive [place] 08/08/2013 [facility] docusate 100 mg, 1 cap, Route: PO, Drug form: CAP, BID, Dosing Weight 52.273, kg, PRN Constipation, Start date: 08/08/13 16:17:00, Duration: 30 day, Stop date: 09/07/13 16:16:00(Same as: Colace) (Do Not Crush) No Longer Active [facility]im 08/08/2013 [facility] ondansetron 4 mg, 2 mL, Route: IVP, Drug form: INJ, Q8H, Dosing Weight 52.273, kg, PRN Nausea & Vomiting, Start date: 08/08/13 16:17:00, Duration: 30 day, Stop date: 09/07/13 16:16:00(Same as: Zofran) No Longer Active [facility] 08/08/2013 [facility] morphine Sulfate 2 mg, 1 mL, Route: IVP, Drug form: INJ, Q3H, Dosing Weight 52.273, kg, PRN Pain Score 4-6, Start date: 08/08/13 16:17:00, Duration: 30 day, Stop date: 09/07/13 16:16:00(Same as:MORPhine Sulfate) No Longer Active [facility] 08/08/2013 [facility] acetaminophen 650 mg, 20.3 mL, Route: PO, Drug form: LIQ, Q4H, Dosing Weight 52.273, kg, PRN Pain 1-3/Temp > 100.4 F, Start date: 08/08/13 16:17:00, Duration: 30 day, Stop date: 09/07/13 16:16:00Max [id number]/day (4 gm/day). (Same as: Tylenol) No Longer Active [facility] 08/08/2013 [facility] D5W 1/2NS + KCL 10mEq/L 1000ml (Premix) 1000 mL 1,000 mL, Rate: 150 ml/hr, Infuse over: 6.7 hr, Route: IV, Dosing Weight 52.273 kg, Total Volume: 1,000, Start date: 08/08/13 16:15:00, Duration: 30 day, Stop date: 09/07/13 16:14:00PREMIX IV - Do Not Alter No Longer Active [facility] 08/08/2013 [facility] morphine Sulfate 5 mg, 2.5 mL, Route: IV, Drug form: INJ, Q4H, PRN Pain Score 1-5, Start date: 08/08/13 16:13:00, Duration: 30 day, Stop date: 09/07/13 16:12:00(Same as:MORPhine Sulfate) No Longer Active [facility] 08/08/2013 [facility] Zofran 4 mg, 2 mL, Route: IVP, Drug form: INJ, Q6H, PRN Nausea & Vomiting, Start date: 08/08/13 16:09:00, Duration: 30 day, Stop date: 09/07/13 16:08:00(Same as: Zofran) No Longer Active [facility] 08/08/2013 [facility] Lexapro 10 mg oral tablet 10 mg, 1 tab, PO, QAM, 30 tab, Substitution Allowed, TAB Active [facility] 08/08/2013 [facility] Valium 5 mg oral tablet 5 mg, 1 tab, PO, Bedtime, PRN, Anxiety, Substitution Allowed, TAB Active [facility] 08/08/2013 [facility] [place] 10/325 oral tablet 1 tab, PO, TID, PRN, 24 tab, as needed for pain, Substitution Allowed, Maintenance Active [facility] 08/08/2013 [facility] hydrochlorothiazide-lisinopril 12.5 mg-10 mg oral tablet 1 tab, PO, Daily, 30 tab, Substitution Allowed, Maintenance, TAB Active 08/08/2013 [facility] Sodium Chloride 0.9% (Bolus) IV 1000 mL 1,000 mL, Rate: 1,000 ml/hr, Infuse over: 1 hr, Route: IV, Dosing Weight 52.273 kg, Total Volume: 1,000, Priority: STAT, Start date: 08/08/13 13:44:00, Duration: 1 doses or times, Stop date: 08/08/13 14:43:00, Bolus DoseBolus Dose Inactive [place] 08/08/2013 [facility] Saline Flush 0.9% 5 mL, Route: IVP, Drug Form: INJ, Dosing Weight 52.273, kg, PRN, PRN Line Flush, Start date: 08/08/13 10:21:00, Duration: 24 hr, Stop date: 08/09/13 10:20:00(Same as: BD Posiflush) Inactive [facility] 08/08/2013 [facility] ondansetron 4 mg, Route: IVP, ONCE, Dosing Weight 52.273, kg, Priority: STAT, Start date: 08/08/13 10:21:00, Stop date: 08/08/13 10:21:00 Inactive [place] 08/08/2013 [facility] pantoprazole 40 mg, Route: IVP, ONCE, Dosing Weight 52.273, kg, For IV push reconstitute with 10 ml 0.9% sodium chloride and push over at least 3 minutes, Priority: STAT, Start date: 08/08/13 10:21:00, Stop date: 08/08/13 10:21:00 Inactive [place] 08/08/2013 [facility] morphine Sulfate 4 mg, Route: IVP, ONCE, Dosing Weight 52.273, kg, Priority: STAT, Start date: 08/08/13 10:21:00, Stop date: 08/08/13 10:21:00 Inactive [place] 08/08/2013 [facility] Norvasc 1 tablet Orally Active 10 MG Orally Once a day [facility] Nitrofurantoin Monohyd Macro 1 capsule with food Orally Active 100 MG Orally every 12 hrs [facility] Metoprolol Tartrate 1 tablet Orally Active 25 MG Orally once a day [facility] Lisinopril 1 tablet Orally Active 10 MG Orally Once a day [facility] Femara 1 tablet Orally Active 2.5 MG Orally Once a day [facility] Morphine Sulfate 1 tablet as needed Orally Active 30 MG Orally every 12 hrs [facility] Femara 1 tablet Orally Active 2.5 MG Orally Once a day [facility] Nitrofurantoin Monohyd Macro 1 capsule with food Orally Active 100 MG Orally every 12 hrs [facility] Protonix 1 tablet Orally Active 40 MG Orally Once a day [facility] Lisinopril 1 tablet Orally Active 10 MG Orally Once a day [facility] Acyclovir TAKE 1 TABLET BY MOUTH FOUR TIMES DAILY NA Active 400 [facility] Metoprolol Tartrate 1 tablet Orally Active 25 MG Orally once a day [facility] Norvasc 1 tablet Orally Active 10 MG Orally Once a day [facility] Creon not defined Orally Active 95072 UNIT Orally [facility] Methocarbamol not defined NA Active [facility] Nexium 1 capsule Orally Active 40 Orally Once a day [facility] Acyclovir 1 tablet Orally Active 400 MG Orally four times a day (qid) [facility] BuPROPion HCl 1 tablet Orally Active 75 MG Orally daily [facility] Trazodone HCl 1 tablet at bedtime as needed Orally Active 50 mg Orally Once a day [facility] Sneha [facility] Gabapentin 1 capsule before bedtime Orally Active 300 MG Orally Once a day [facility] Azithromycin 2 tablets on the first day, then 1 tablet daily for 4 days Orally Active 250 MG Orally Once a day [facility] Sne[facility] Bromfed DM 10 ml as needed Orally Active 30-2-10 MG/5ML Orally every 6 hrs as needed [facility] Sneha [facility] Medrol as directed Orally Active 4 MG Orally as directed [facility] Methocarbamol 2 tablets Orally Active 500 MG Orally every 8 hrs [facility] Gabap[facility] 1 tablet Orally Active 800 MG Orally Twice a day [facility] Chantix Continuing Month Chris 1 tablet Orally Active 1 Orally Twice a day [facility] Lidocaine HCl 1 gram topically Active 5% topically Three times a day [facility] Lisinopril 1 tablet Orally Active 20 MG Orally Once a day [facility] Metoprolol Tartrate 1 tablet Orally Active 50 MG Orally once a day [facility] Sneha [facility] Allergies, Adverse Reactions, Alerts Substance Category Reaction Severity Reaction type Status Date Reported Comments Source N.K.D.A. Adverse Reaction Info Not Available Adverse Reaction [facility] Immunizations Immunization Date Given Site Status Last Updated Comments Source pneumococcal 23-valent vaccine 01/22/2016 Right deltoid completed Devon Stoner [facility] influenza virus vaccine, inactivated 08/10/2014 Right deltoid completed Makr Stoner [facility] Results Order Name Results Value Reference Range Date Interpretation Comments Source Spine lumbar wo contrast CT Spine lumbar wo contrast CT Patient Name: CARLOS VAUGHN : 1960; Age: 55 years y/o Female MR: [id number] Study: Spine lumbar wo contrast CT 03/13/2016 11:48 AM CDT Ordering Physician: Atr Ricardo MD Comparison: 08/11/2013 Clinical Indication: Lumbar back pain; Multiple computerized axial tomograms of the lumbar spine were obtained without contrast. 2-D sagittal and coronal reformation images were obtained. Interbody spacers are present at L2-L3 and L3-L4. Left lateral plate and screw fixation is noted at L2-L3 and L3-L4. Bilateral screw fixation at the apophyseal joints at L2-L3 and L3-L4 is noted. The hardware is intact without hardware fracturing. Dystrophic calcification within the disc spaces at L2-L3 and L3-L4 is noted. Irregularity and bony sclerosis are present at the endplates of L3 and the superior endplate of L4. Focal areas of bony demineralization with cortical margination are noted at the body and inferior endplate of L3 and the dorsal aspect of the superior endplate of L4. There is no acute fracture, dislocation or spondylolisthesis noted. The caliber of the common hepatic duct is 12 mm. The caliber of the intrapancreatic common bile duct is 8 mm. Clinical correlation with liver function tests is suggested. Vascular calcification is noted at the normal caliber abdominal aorta extending into the common iliac arteries bilaterally. There is no paraspinous or epidural mass or fluid collection noted. Findings will be described per level as follows: At T11-T12, there is no acute disc herniation, central spinal stenosis or neural foraminal stenosis. Degenerative arthropathy of the apophyseal joints at this level is noted. At T12-L1,there is no acute disc herniation, central spinal stenosis or neural foraminal stenosis. Degenerative arthropathy of the apophyseal joints at this level is noted. At L1-L2,there is no acute disc herniation, central spinal stenosis or neural foraminal stenosis. Degenerative arthropathy of the apophyseal joints at this level is noted. Ligamentous thickening is noted dorsally. At L2-L3, there is minimal broad-based disc bulge present associated with ligamentous thickening resulting in no significant central spinal stenosis. No neural foraminal stenosis or or acute disc herniation. Bilateral laminectomy defects are noted dorsally. Dystrophic calcification and scarring are noted dorsal to the lumbar spinal canal at the operative bed. Postoperative changes related to hardware fixation are noted as described above. The metallic spray artifact from the hardware may decrease the diagnostic detail. At L3-L4, there is moderate broad-based disc bulge present associated with ligamentous thickening and degenerative arthropathy of the apophyseal joints at this level resulting in moderate central spinal stenosis. There is no acute disc herniation or neural foraminal stenosis. Bilateral laminectomy defects are noted dorsally.Dystrophic calcification and scarring are noted dorsal to the lumbar spinal canal at the operative bed. Postoperative changes related to hardware fixation are noted as described above. The metallic spray artifact from the hardware may decrease the diagnostic detail. At L4-L5, there is moderate broad-based disc bulge present associated with ligamentous thickening and degenerative arthropathy of the apophyseal joints at this level resulting in moderate central spinal stenosis. No neural foraminal stenosis or acute disc herniation is noted. At L5-S1, there is no acute disc herniation, central spinal stenosis or neural foraminal stenosis. Degenerative arthropathy of the apophyseal joints at this level is noted. IMPRESSION: 1. Postoperative changes are noted at L2-L3 and L3-L4. 2. Lumbar spondylosis. 3. Chronic endplate changes at L2-L3 and L3-L4. 4. No acute abnormality noted. 5. There is little or no significant interval change noted when compared to the previous exam, 08/11/2013. SL: [id number] 03/13/2016 - - Read by: Demetrio Westfall MD Dictated Date/time: 03/14/16 07:51 Electronically Signed by: Demetrio Westfall MD 03/14/16 08:22 FINAL REPORT [facility] PANEL eGFR 102 mL/min/1.73m2 01/21/2016 Result Comment: The eGFR is calculated using the [...] from the National Kidney Disease Education Program (NKDEP) which additionally recommends that when the eGFR is used in patients with extremes of body mass index for purposes of drug dosing, the eGFR should be multiplied by the estimated BMI. [employer] CHEM PANEL Bili Total 0.9 mg/dL 0.2 - 1.3 01/21/2016 [employer] CHEM PANEL A/G Ratio 1.0 0.7 - 1.6 01/21/2016 [facility] CHEM PANEL ALT 17 unit/L 0 - 65 01/21/2016 [facility] CHEM PANEL Chloride Lvl 97 meq/L 95 - 109 01/21/2016 [facility] CHEM PANEL AGAP 14.0 meq/L 10.0 - 20.0 01/21/2016 [facility] CHEM PANEL CO2 26 meq/L 24 - 32 01/21/2016 [facility] CHEM PANEL Potassium Lvl 4.0 meq/L 3.5 - 5.1 01/21/2016 [facility] CHEM PANEL Sodium Lvl 133 meq/L 135 - 145 01/21/2016 [facility] CHEM PANEL Creatinine Lvl 0.62 mg/dL 0.50 - 1.40 01/21/2016 [facility] CHEM PANEL Glucose Lvl 94 mg/dL 70 - 99 01/21/2016 [facility] CHEM PANEL BUN 8 mg/dL 7 - 22 01/21/2016 [facility] CHEM PANEL Calcium Lvl 7.9 mg/dL 8.5 - 10.5 01/21/2016 [facility] CHEM PANEL B/C Ratio 13 6 - 25 01/21/2016 [facility] CHEM PANEL Alk Phos 122 unit/L 39 - 136 01/21/2016 [facility] CHEM PANEL AST 22 unit/L 0 - 37 01/21/2016 [facility] CHEM PANEL Total Protein 5.4 g/dL 6.4 - 8.4 01/21/2016 [facility] CHEM PANEL Globulin 2.7 g/dL 2.0 - 4.0 01/21/2016 [facility] CHEM PANEL Albumin Lvl 2.7 g/dL 3.5 - 5.0 01/21/2016 [facility] HEMATOLOGY Lymphocytes # 0.5 K/CMM 1.0 - 5.5 01/21/2016 [facility] HEMATOLOGY Monocytes # 0.4 K/CMM 0.0 - 0.8 01/21/2016 [facility] HEMATOLOGY Lymphocytes 8.5 % 20.0 - 40.0 01/21/2016 [facility] HEMATOLOGY Monocytes 7.2 % 2.0 - 12.0 01/21/2016 [facility] HEMATOLOGY Eosinophils 1.4 % 0.0 - 4.0 01/21/2016 [facility] HEMATOLOGY Segs-Bands # 5.0 K/CMM 1.5 - 8.1 01/21/2016 [facility] HEMATOLOGY Basophils 0.6 % 0.0 - 1.0 01/21/2016 [facility] HEMATOLOGY Segs 82.3 % 45.0 - 75.0 01/21/2016 [facility] Eosinophils # 0.1 K/CMM 0.0 - 0.5 01/21/2016 [facility] Macrocyte 1+ *ABN* (01/21/16 4:13 AM) None Seen 01/21/2016 [facility] MCV 99.9 fL 80.0 - 98.0 01/21/2016 [facility] MCH 33.5 pg 27.0 - 31.0 01/21/2016 [facility] WBC 6.1 K/CMM 3.7 - 10.4 01/21/2016 [facility] RBC 3.86 M/CMM 4.20 - 5.40 01/21/2016 [facility] Hgb 12.9 g/dL 12.0 - 16.0 01/21/2016 [facility] Hct 38.5 % 36.0 - 48.0 01/21/2016 [facility] MCHC 33.5 g/dL 32.0 - 36.0 01/21/2016 [facility] RDW 15.3 % 11.5 - 14.5 01/21/2016 [facility] Platelet 237 K/CMM 133 - 450 01/21/2016 [facility] MPV 7.6 fL 7.4 - 10.4 01/21/2016 [facility] Carotid artery Doppler bilat US Carotid artery Doppler bilat US Carotid artery Doppler bilat US CLINICAL HISTORY: Syncope and collapse. COMPARISON: none TECHNIQUE: Steiner scale, color Doppler and spectral Doppler of the cervical carotid arteries was performed. Static images are submitted for review. NOTE: Any reported ICA stenoses indirectly reference the distal internal carotid diameter as the denominator for stenosis measurement utilizing Consensus Panel Criteria. FINDINGS: There is no significant intimal thickening visualized in either the CCA. There is no significant plaque visualized at the carotid bulb or the internal carotid arteries on either side. Antegrade flow is visualized in both vertebral arteries. Visualized portion of both ECAs is unremarkable. RIGHT: ICA PSV 84 cm/sec. CCA PSV 72 cm/sec. ICA/CCA Ratio 1.1 LEFT: ICA PSV 87 cm/sec. CCA PSV 66 cm/sec. ICA/CCA Ratio 1.2 IMPRESSION: No sonographic evidence for a hemodynamically significant stenosis. Consensus panel Doppler US criteria for diagnosis of ICA stenosis: Stenosis (%) ICA PSV (cm/sec) ICA EDV(cm/sec) ICA/CCA ratio <50 % <125 <40 <2.0 50-69 % 125-230 40-100 2.0-4.0 >70% but less than >230 >100 >4.0 near occlusion SL: [id number] Doppler 01/20/2016 - - Read by: James Siegel MD Dictated Date/time: 01/20/16 19:01 Electronically Signed by: James Siegel MD 01/20/16 19:02 FINAL REPORT [facility] CARDIAC ENZYMES Troponin-I null 0.00 - 0.40 01/20/2016 [facility] CARDIAC ENZYMES Total CK 116 unit/L 12 - 191 01/20/2016 [facility] CARDIAC ENZYMES CK MB Index 1.9 0.0 - 2.5 01/20/2016 [facility] CARDIAC ENZYMES CK MB 2.2 ng/mL 0.5 - 3.6 01/20/2016 [facility] ELECTROLYTES AGAP 13.7 meq/L 10.0 - 20.0 01/20/2016 [facility] ELECTROLYTES Potassium Lvl 4.7 meq/L 3.5 - 5.1 01/20/2016 [facility] ELECTROLYTES BUN 5 mg/dL 7 - 22 01/20/2016 [facility] ELECTROLYTES Glucose Lvl 107 mg/dL 70 - 99 01/20/2016 [facility] ELECTROLYTES Sodium Lvl 133 meq/L 135 - 145 01/20/2016 [facility] ELECTROLYTES Creatinine Lvl 0.60 mg/dL 0.50 - 1.40 01/20/2016 [facility] ELECTROLYTES eGFR 103 mL/min/1.73m2 01/20/2016 Result Comment: The eGFR is calculated using the [...] from the National Kidney Disease Education Program (NKDEP) which additionally recommends that when the eGFR is used in patients with extremes of body mass index for purposes of drug dosing, the eGFR should be multiplied by the estimated BMI. [facility] ELECTROLYTES Calcium Lvl 8.7 mg/dL 8.5 - 10.5 01/20/2016 [facility] ELECTROLYTES CO2 26 meq/L 24 - 32 01/20/2016 [facility] ELECTROLYTES Chloride Lvl 98 meq/L 95 - 109 01/20/2016 [facility] Segs 68.6 % 45.0 - 75.0 01/20/2016 [facility] Lymphocytes # 1.0 K/CMM 1.0 - 5.5 01/20/2016 [facility] Monocytes # 0.5 K/CMM 0.0 - 0.8 01/20/2016 [facility] Eosinophils # 0.1 K/CMM 0.0 - 0.5 01/20/2016 [facility] Macrocyte 1+ *ABN* (01/20/16 4:10 AM) None Seen 01/20/2016 [facility] Lymphocytes 19.5 % 20.0 - 40.0 01/20/2016 [facility] Monocytes 10.1 % 2.0 - 12.0 01/20/2016 [facility] Eosinophils 1.1 % 0.0 - 4.0 01/20/2016 [facility] Basophils 0.7 % 0.0 - 1.0 01/20/2016 [facility] Segs-Bands # 3.5 K/CMM 1.5 - 8.1 01/20/2016 [facility] RDW 15.5 % 11.5 - 14.5 01/20/2016 [facility] Platelet 259 K/CMM 133 - 450 01/20/2016 [facility] MCH 32.8 pg 27.0 - 31.0 01/20/2016 [facility] MCHC 33.1 g/dL 32.0 - 36.0 01/20/2016 [facility] MPV 7.1 fL 7.4 - 10.4 01/20/2016 [facility] HEMATOLOGY Hgb 14.7 g/dL 12.0 - 16.0 01/20/2016 [facility] HEMATOLOGY Hct 44.4 % 36.0 - 48.0 01/20/2016 [facility] HEMATOLOGY MCV 99.2 fL 80.0 - 98.0 01/20/2016 [facility] HEMATOLOGY WBC 5.0 K/CMM 3.7 - 10.4 01/20/2016 [facility] HEMATOLOGY RBC 4.48 M/CMM 4.20 - 5.40 01/20/2016 [facility] Tibia fibula series DX Tibia fibula series DX C-arm spot images from the operating room show intramedullary jhon placement in the tibia traversing the distal tibial fracture. Proximal and distal fixation screws are noted. The fracture fragments appear anatomically aligned. SL 13 01/20/2016 - - Read by: Rene Calzada MD Dictated Date/time: 01/20/16 09:04 Electronically Signed by: Rene Calzada MD 01/20/16 09:05 FINAL REPORT [facility] CARDIAC ENZYMES Total CK 136 unit/L 12 - 191 01/20/2016 [facility] CARDIAC ENZYMES Troponin-I null 0.00 - 0.40 01/20/2016 [facility] CARDIAC ENZYMES CK MB Index 2.4 0.0 - 2.5 01/20/2016 [facility] CARDIAC ENZYMES CK MB 3.2 ng/mL 0.5 - 3.6 01/20/2016 [facility] DRUG SCREEN U Phencyc Scr Negative *NA* (01/19/16 4:16 PM) Negative 01/19/2016 [facility] DRUG SCREEN U Cocaine Scr Negative *NA* (01/19/16 4:16 PM) Negative 01/19/2016 [facility] DRUG SCREEN U Opiate Scr Positive *ABN* (01/19/16 4:16 PM) Negative 01/19/2016 [facility] DRUG SCREEN U Benzodia Scr Negative *NA* (01/19/16 4:16 PM) Negative 01/19/2016 [facility] DRUG SCREEN U Cannab Scr Negative *NA* (01/19/16 4:16 PM) Negative 01/19/2016 [facility] DRUG SCREEN U Sasha Scr Negative *NA* (01/19/16 4:16 PM) Negative 01/19/2016 [facility] DRUG SCREEN UDS Note See Note (01/19/16 4:16 PM) 01/19/2016 [facility] DRUG SCREEN U Propoxyph Scr Negative *NA* (01/19/16 4:16 PM) Negative 01/19/2016 [facility] DRUG SCREEN U Methadone Scr Negative *NA* (01/19/16 4:16 PM) Negative 01/19/2016 [facility] DRUG SCREEN U Amph Scr Negative *NA* (01/19/16 4:16 PM) Negative 01/19/2016 [facility] URINE AND STOOL UA Urobilinogen <=1.0 mg/dL 0.1 - 1.0 01/19/2016 [facility] URINE AND STOOL UA Turbidity Clear (01/19/16 4:16 PM) Clear 01/19/2016 [facility] URINE AND STOOL UA pH 7.0 5.0 - 8.0 01/19/2016 [facility] URINE AND STOOL UA Spec Grav 1.003 <=1.030 01/19/2016 [facility] URINE AND STOOL UA Protein Negative mg/dL Negative mg/dL 01/19/2016 [facility] URINE AND STOOL UA Bili Negative *NA* (01/19/16 4:16 PM) Negative 01/19/2016 [facility] URINE AND STOOL UA Ketones Negative mg/dL Negative mg/dL 01/19/2016 [facility] URINE AND STOOL UA Glucose Negative mg/dL Negative mg/dL 01/19/2016 [facility] URINE AND STOOL UA Blood Negative (01/19/16 4:16 PM) Negative 01/19/2016 [facility] URINE AND STOOL UA Mucus Few /LPF None Seen /LPF 01/19/2016 [facility] URINE AND STOOL UA Leuk Est Negative (01/19/16 4:16 PM) Negative 01/19/2016 [facility] URINE AND STOOL UA Nitrite Negative (01/19/16 4:16 PM) Negative 01/19/2016 [facility] URINE AND STOOL UA Sq Epi None Seen 01/19/2016 [facility] URINE AND STOOL UA Color Colorless 01/19/2016 [facility] CARDIAC ENZYMES Troponin-I null 0.00 - 0.40 01/19/2016 [facility] CARDIAC ENZYMES Total CK 78 unit/L 12 - 191 01/19/2016 [facility] CHEM PANEL A/G Ratio 1.0 0.7 - 1.6 01/19/2016 [facility] CHEM PANEL Globulin 3.0 g/dL 2.0 - 4.0 01/19/2016 [facility] CHEM PANEL AGAP 11.3 meq/L 10.0 - 20.0 01/19/2016 [facility] CHEM PANEL B/C Ratio 7 6 - 25 01/19/2016 [facility] CHEM PANEL eGFR 105 mL/min/1.73m2 01/19/2016 Result Comment: The eGFR is calculated using the [...] from the National Kidney Disease Education Program (NKDEP) which additionally recommends that when the eGFR is used in patients with extremes of body mass index for purposes of drug dosing, the eGFR should be multiplied by the estimated BMI. [facility] CHEM PANEL BUN 4 mg/dL 7 - 22 01/19/2016 [facility] CHEM PANEL Glucose Lvl 102 mg/dL 70 - 99 01/19/2016 [facility] CHEM PANEL Sodium Lvl 136 meq/L 135 - 145 01/19/2016 [facility] CHEM PANEL Creatinine Lvl 0.57 mg/dL 0.50 - 1.40 01/19/2016 [facility] CHEM PANEL Potassium Lvl 4.3 meq/L 3.5 - 5.1 01/19/2016 [facility] CHEM PANEL Chloride Lvl 100 meq/L 95 - 109 01/19/2016 [facility] CHEM PANEL CO2 29 meq/L 24 - 32 01/19/2016 [facility] CHEM PANEL Calcium Lvl 8.3 mg/dL 8.5 - 10.5 01/19/2016 [facility] CHEM PANEL AST 38 unit/L 0 - 37 01/19/2016 [facility] CHEM PANEL Alk Phos 130 unit/L 39 - 136 01/19/2016 [facility] CHEM PANEL ALT 26 unit/L 0 - 65 01/19/2016 [facility] CHEM PANEL Bili Total 0.2 mg/dL 0.2 - 1.3 01/19/2016 [facility] CHEM PANEL Albumin Lvl 3.1 g/dL 3.5 - 5.0 01/19/2016 [facility] CHEM PANEL Total Protein 6.1 g/dL 6.4 - 8.4 01/19/2016 [facility] HEMATOLOGY Lymphocytes # 0.9 K/CMM 1.0 - 5.5 01/19/2016 [facility] HEMATOLOGY Segs-Bands # 2.8 K/CMM 1.5 - 8.1 01/19/2016 [facility] HEMATOLOGY Basophils # 0.1 K/CMM 0.0 - 0.2 01/19/2016 [facility] Macrocyte 1+ *ABN* (01/19/16 4:15 PM) None Seen 01/19/2016 [facility] HEMATOLOGY Lymphocytes 21.8 % 20.0 - 40.0 01/19/2016 [facility] HEMATOLOGY Segs 66.2 % 45.0 - 75.0 01/19/2016 [facility] HEMATOLOGY Eosinophils 2.7 % 0.0 - 4.0 01/19/2016 [facility] HEMATOLOGY Basophils 1.3 % 0.0 - 1.0 01/19/2016 [facility] Monocytes # 0.3 K/CMM 0.0 - 0.8 01/19/2016 [facility] Monocytes 8.0 % 2.0 - 12.0 01/19/2016 [facility] Eosinophils # 0.1 K/CMM 0.0 - 0.5 01/19/2016 [facility] INR 0.99 0.85 - 1.17 01/19/2016 [facility] PT 13.4 s 12.0 - 14.7 01/19/2016 [facility] PTT 28.1 s 22.9 - 35.8 01/19/2016 [facility] RBC 4.44 M/CMM 4.20 - 5.40 01/19/2016 [facility] Hgb 14.7 g/dL 12.0 - 16.0 01/19/2016 [facility] MCHC 33.1 g/dL 32.0 - 36.0 01/19/2016 [facility] WBC 4.2 K/CMM 3.7 - 10.4 01/19/2016 [facility] MPV 6.8 fL 7.4 - 10.4 01/19/2016 [facility] MCH 33.2 pg 27.0 - 31.0 01/19/2016 [facility] MCV 100.3 fL 80.0 - 98.0 01/19/2016 [facility] Hct 44.5 % 36.0 - 48.0 01/19/2016 [facility] RDW 15.3 % 11.5 - 14.5 01/19/2016 [facility] HEMATOLOGY Platelet 262 K/CMM 133 - 450 01/19/2016 [facility] Brain wo contrast CT Brain wo contrast CT EXAM: CT BRAIN WITHOUT CONTRAST DATE: 01/19/2016 5:45 PM CDT INDICATION: Syncope. History of breast cancer. COMPARISON: CT head of 08/09/2014. TECHNIQUE: Routine axial CT images of the brain were obtained. IV contrast: None. DLP: mGy-cm FINDINGS: Non-contrast images of the head demonstrate no edema, hemorrhage, mass lesion or other acute intracranial abnormality. 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 Sandoval-white matter distinction is preserved. The ventricles are normal. The basal cisterns and sulci are normal in size. The paranasal sinuses, orbits and mastoids are unremarkable. IMPRESSION: 1. No definite acute infarct or intracranial hemorrhage detected. 2. 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 If there is further concern for intracranial pathology or acute stroke, MRI of the brain may be performed for complete assessment. SL: [id number] 01/19/2016 - - Read by: Art Tomas MD Dictated Date/time: 01/19/16 18:45 Electronically Signed by: Art Tomas MD 01/19/16 18:47 FINAL REPORT [facility] Tibia fibula series DX Tibia fibula series DX Patient Name: CARLOS VAUGHN : 1960; Age: 55 years y/o Female MR: [id number] Study: 2 view left tibia fibula 01/19/2016 3:57 PM CDT Ordering Physician: Hussain Harp MD Clinical Indication: Pain and swelling after a fall; Comparison: None Discussion: Dorsal fiberglass cast somewhat obscures fine bony detail. Oblique fracture of the junction of the middle and distal thirds of the tibia with medial and posterior displacement of the distal fragment and minimal bony overlap. No associated callus. Oblique fracture involving the junction of the middle and distal thirds of the fibula with medial and anterior displacement of the distal fragment and minimal bony overlap. No associated callus. Well-corticated oblique lucency in the medial malleolus may be the residua of an old fracture. No other significant findings identified. IMPRESSION: Obliquely oriented fractures of the distal tibia and fibula. SL: [id number] 01/19/2016 - - Read by: Rusty Recio MD Dictated Date/time: 01/19/16 17:01 Electronically Signed by: Rusty Recio MD 01/19/16 17:04 FINAL REPORT [facility] Chest 1view DX Chest 1view DX Chest 1view DX CLINICAL HISTORY:Syncope COMPARISON: 05/04/2014 FINDINGS/IMPRESSION: Limited AP portable study. Increased density is projected over both mid lungs laterally is possibly related to breast implants. There are surgical clips in the left axilla with other scattered surgical clips in the left mid and right mid hemithorax. Lungs are otherwise grossly clear. No effusions. Cardiac silhouette size is within normal limits. Postsurgical change base of C-spine and lumbar spine. No significant bony abnormality is noted. Multiple EKG leads and other wires project over the patient's chest. SL: [id number] 01/19/2016 - - Read by: Rock Matias MD Dictated Date/time: 01/19/16 17:02 Electronically Signed by: Rock Matias MD 01/19/16 17:04 FINAL REPORT [facility] ELECTROLYTES AGAP 13.4 meq/L 10.0 - 20.0 10/12/2014 [facility] ELECTROLYTES eGFR 84 mL/min/1.73m2 10/12/2014 1Result Comment: The eGFR is calculated using [...] from the National Kidney Disease Education Program (NKDEP) which additionally recommends that when the eGFR is used in patients with extremes of body mass index for purposes of drug dosing, the eGFR should be multiplied by the estimated BMI. [facility] ELECTROLYTES Sodium Lvl 128 meq/L 135 - 145 10/12/2014 [facility] ELECTROLYTES Potassium Lvl 4.4 meq/L 3.5 - 5.1 10/12/2014 [facility] ELECTROLYTES Chloride Lvl 92 meq/L 95 - 109 10/12/2014 [facility] ELECTROLYTES CO2 27 meq/L 24 - 32 10/12/2014 [facility] ELECTROLYTES Calcium Lvl 9.3 mg/dL 8.5 - 10.5 10/12/2014 [facility] ELECTROLYTES Glucose Lvl 82 mg/dL 70 - 99 10/12/2014 2Interpretive Data: Adult reference range values reflect the clinical guidelines of the [place] [employer]. [facility] ELECTROLYTES Creatinine Lvl 0.8 mg/dL 0.5 - 1.4 10/12/2014 [facility] ELECTROLYTES BUN 11 mg/dL 7 - 22 10/12/2014 [facility] HEMATOLOGY RBC 3.98 M/CMM 4.20 - 5.40 10/12/2014 [facility] Hgb 15.1 g/dL 12.0 - 16.0 10/12/2014 [facility] MCHC 34.7 g/dL 32.0 - 36.0 10/12/2014 [facility] RDW 13.7 % 11.5 - 14.5 10/12/2014 [facility] MCV 109.3 fL 80.0 - 98.0 10/12/2014 [facility] Hct 43.5 % 36.0 - 48.0 10/12/2014 [facility] MCH 37.9 pg 27.0 - 31.0 10/12/2014 [facility] Platelet 304 K/CMM 133 - 450 10/12/2014 [facility] MPV 6.4 fL 7.4 - 10.4 10/12/2014 [facility] WBC 5.4 K/CMM 3.7 - 10.4 10/12/2014 [facility] Monocytes 11.9 % 2.0 - 12.0 10/12/2014 [facility] Lymphocytes 17.9 % 20.0 - 40.0 10/12/2014 [facility] Segs 67.7 % 45.0 - 75.0 10/12/2014 [facility] Monocytes # 0.6 K/CMM 0.0 - 0.8 10/12/2014 [facility] Macrocyte 3+ *NA* (10/12/14 11:18 AM) None Seen 10/12/2014 [facility] HEMATOLOGY Eosinophils # 0.1 K/CMM 0.0 - 0.5 10/12/2014 [facility] HEMATOLOGY Basophils # 0.1 K/CMM 0.0 - 0.2 10/12/2014 [facility] HEMATOLOGY Basophils 1.1 % 0.0 - 1.0 10/12/2014 [facility] HEMATOLOGY Eosinophils 1.4 % 0.0 - 4.0 10/12/2014 [facility] HEMATOLOGY Lymphocytes # 1.0 K/CMM 1.0 - 5.5 10/12/2014 [facility] HEMATOLOGY Segs-Bands # 3.6 K/CMM 1.5 - 8.1 10/12/2014 [facility] CHEM PANEL eGFR 99 mL/min/1.73m2 08/10/2014 1Result Comment: The eGFR is calculated using [...] from the National Kidney Disease Education Program (NKDEP) which additionally recommends that when the eGFR is used in patients with extremes of body mass index for purposes of drug dosing, the eGFR should be multiplied by the estimated BMI. [facility] CHEM PANEL CO2 19 meq/L 24 - 32 08/10/2014 [facility] CHEM PANEL AGAP 15.4 meq/L 10.0 - 20.0 08/10/2014 [facility] CHEM PANEL Chloride Lvl 104 meq/L 95 - 109 08/10/2014 [facility] CHEM PANEL Potassium Lvl 5.4 meq/L 3.5 - 5.1 08/10/2014 [facility] CHEM PANEL Calcium Lvl 8.6 mg/dL 8.5 - 10.5 08/10/2014 [facility] CHEM PANEL Creatinine Lvl 0.7 mg/dL 0.5 - 1.4 08/10/2014 [facility] CHEM PANEL Glucose Lvl 158 mg/dL 70 - 99 08/10/2014 4Interpretive Data: Adult reference range values reflect the clinical guidelines of the [place] [employer]. [facility] CHEM PANEL BUN 8 mg/dL 7 - 22 08/10/2014 [facility] CHEM PANEL Sodium Lvl 133 meq/L 135 - 145 08/10/2014 [facility] URINE CHEM U Creatinine 28.7 mg/dL 08/09/2014 7Interpretive Data: No established reference ranges. [facility] URINE CHEM U Osmolality 205 mOsm/kg 300 - 800 08/09/2014 [facility] CHEM PANEL eGFR 84 mL/min/1.73m2 08/09/2014 2Result Comment: The eGFR is calculated using the [...] from the National Kidney Disease Education Program (NKDEP) which additionally recommends that when the eGFR is used in patients with extremes of body mass index for purposes of drug dosing, the eGFR should be multiplied by the estimated BMI. [facility] CHEM PANEL Chloride Lvl 97 meq/L 95 - 109 08/09/2014 [facility] CHEM PANEL Potassium Lvl 4.8 meq/L 3.5 - 5.1 08/09/2014 [facility] CHEM PANEL Sodium Lvl 129 meq/L 135 - 145 08/09/2014 [facility] CHEM PANEL Creatinine Lvl 0.8 mg/dL 0.5 - 1.4 08/09/2014 [facility] CHEM PANEL BUN 7 mg/dL 7 - 22 08/09/2014 [facility] CHEM PANEL Glucose Lvl 101 mg/dL 70 - 99 08/09/2014 5Interpretive Data: Adult reference range values reflect the clinical guidelines of the [place] [employer]. [facility] CHEM PANEL Calcium Lvl 8.1 mg/dL 8.5 - 10.5 08/09/2014 [facility] CHEM PANEL CO2 23 meq/L 24 - 32 08/09/2014 [facility] CHEM PANEL AGAP 13.8 meq/L 10.0 - 20.0 08/09/2014 [facility] CHEM PANEL Osmolality 270 mOsm/kg 280 - 300 08/09/2014 [facility] CHEM PANEL Magnesium Lvl 1.5 mg/dL 1.8 - 2.4 08/09/2014 [facility] HEMATOLOGY MCH 36.8 pg 27.0 - 31.0 08/09/2014 [facility] HEMATOLOGY MCHC 34.2 g/dL 32.0 - 36.0 08/09/2014 [facility] HEMATOLOGY Platelet 303 K/CMM 133 - 450 08/09/2014 [facility] RDW 16.0 % 11.5 - 14.5 08/09/2014 [facility] HEMATOLOGY MPV 7.0 fL 7.4 - 10.4 08/09/2014 [facility] RBC 3.47 M/CMM 4.20 - 5.40 08/09/2014 [facility] Hgb 12.8 g/dL 12.0 - 16.0 08/09/2014 [facility] Hct 37.4 % 36.0 - 48.0 08/09/2014 [facility] WBC 5.0 K/CMM 3.7 - 10.4 08/09/2014 [facility] MCV 107.7 fL 80.0 - 98.0 08/09/2014 [facility] Macrocyte 2+ *ABN* (08/09/14 10:23 AM) None Seen 08/09/2014 [facility] Basophils 1.2 % 0.0 - 1.0 08/09/2014 [facility] Basophils # 0.1 K/CMM 0.0 - 0.2 08/09/2014 [facility] Eosinophils # 0.2 K/CMM 0.0 - 0.5 08/09/2014 [facility] Monocytes # 0.5 K/CMM 0.0 - 0.8 08/09/2014 [facility] HEMATOLOGY Segs-Bands # 3.1 K/CMM 1.5 - 8.1 08/09/2014 [facility] Lymphocytes # 1.2 K/CMM 1.0 - 5.5 08/09/2014 [facility] Eosinophils 3.3 % 0.0 - 4.0 08/09/2014 [facility] Monocytes 10.3 % 2.0 - 12.0 08/09/2014 [facility] Lymphocytes 23.9 % 20.0 - 40.0 08/09/2014 [facility] HEMATOLOGY Segs 61.3 % 45.0 - 75.0 08/09/2014 [facility] ANEMIA STUDY Vitamin B12 Lvl 750 pg/mL 254 - 1320 08/09/2014 [facility] THYROID PANEL TSH 1.740 uIU/mL 0.360 - 3.740 08/09/2014 [facility] Brain w/wo contrast CT Brain w/wo contrast CT EXAM: CT HEAD WITH AND WITHOUT CONTRAST. DATE: Aug 09, 2014 09:45:58 AM INDICATION: Headache with Trauma TECHNIQUE: Noncontrast axial imaging was obtained from the vertex to the skull base. Axial images were reconstructed using a bone algorithm. COMPARISON: None. FINDINGS: No acute intracranial hemorrhage or extraaxial collection is identified. The ventricles are normal. There is a 2.5 x 12 cm right posterior fossa extra-axial focal CSF collection without enhancement. There is no midline shift or herniation. The steinre-white matter interfaces are preserved. No intracranial enhancing masses or abnormal leptomeningeal enhancement is seen. The dural venous sinuses are patent. The included paranasal sinuses, mastoid air cells and auditory canals are clear. Lower cervical cervical spine fusion hardware is seen on the advance scout image. No skull fracture is seen. IMPRESSION: 1. No acute intracranial abnormality 2. No evidence of intracranial metastases. 3. Right posterior fossa arachnoid cyst SL: 12 08/09/2014 - - Read by: Ana Mahajan MD Dictated Date/time: 08/09/14 09:48 Electronically Signed by: Ana Mahajan MD 08/09/14 09:55 FINAL REPORT [facility] CHEM PANEL eGFR 84 mL/min/1.73m2 08/09/2014 3Result Comment: The eGFR is calculated using the [...] from the National Kidney Disease Education Program (NKDEP) which additionally recommends that when the eGFR is used in patients with extremes of body mass index for purposes of drug dosing, the eGFR should be multiplied by the estimated BMI. [facility] CHEM PANEL Calcium Lvl 8.4 mg/dL 8.5 - 10.5 08/09/2014 [facility] CHEM PANEL AGAP 13.7 meq/L 10.0 - 20.0 08/09/2014 [facility] CHEM PANEL Chloride Lvl 92 meq/L 95 - 109 08/09/2014 [facility] CHEM PANEL CO2 24 meq/L 24 - 32 08/09/2014 [facility] CHEM PANEL Sodium Lvl 126 meq/L 135 - 145 08/09/2014 [facility] CHEM PANEL Creatinine Lvl 0.8 mg/dL 0.5 - 1.4 08/09/2014 [facility] CHEM PANEL Potassium Lvl 3.7 meq/L 3.5 - 5.1 08/09/2014 [facility] CHEM PANEL Glucose Lvl 84 mg/dL 70 - 99 08/09/2014 6Interpretive Data: Adult reference range values reflect the clinical guidelines of the [place] [employer]. [facility] CHEM PANEL BUN 6 mg/dL 7 - 22 08/09/2014 [facility] CHEM PANEL Lipase Lvl 179 unit/L 73 - 393 08/09/2014 [facility] CHEM PANEL Phosphorus 3.5 mg/dL 2.5 - 4.5 08/09/2014 [facility] CHEM PANEL Magnesium Lvl 1.6 mg/dL 1.8 - 2.4 08/09/2014 [facility] HEMATOLOGY Segs-Bands # 2.9 K/CMM 1.5 - 8.1 08/09/2014 [facility] HEMATOLOGY Basophils 0.8 % 0.0 - 1.0 08/09/2014 [facility] HEMATOLOGY Eosinophils 3.3 % 0.0 - 4.0 08/09/2014 [facility] HEMATOLOGY Monocytes # 0.4 K/CMM 0.0 - 0.8 08/09/2014 [facility] HEMATOLOGY Lymphocytes # 1.2 K/CMM 1.0 - 5.5 08/09/2014 [facility] HEMATOLOGY Segs 61.9 % 45.0 - 75.0 08/09/2014 [facility] HEMATOLOGY Monocytes 8.5 % 2.0 - 12.0 08/09/2014 [facility] Lymphocytes 25.5 % 20.0 - 40.0 08/09/2014 [facility] HEMATOLOGY Eosinophils # 0.2 K/CMM 0.0 - 0.5 08/09/2014 [facility] HEMATOLOGY Macrocyte 2+ *ABN* (08/09/14 2:20 AM) None Seen 08/09/2014 [facility] HEMATOLOGY WBC 4.7 K/CMM 3.7 - 10.4 08/09/2014 [facility] HEMATOLOGY Hgb 13.5 g/dL 12.0 - 16.0 08/09/2014 [facility] RBC 3.64 M/CMM 4.20 - 5.40 08/09/2014 [facility] Hct 38.6 % 36.0 - 48.0 08/09/2014 [facility] MCH 37.1 pg 27.0 - 31.0 08/09/2014 [facility] MCV 106.0 fL 80.0 - 98.0 08/09/2014 [facility] RDW 16.5 % 11.5 - 14.5 08/09/2014 [facility] MCHC 35.0 g/dL 32.0 - 36.0 08/09/2014 [facility] MPV 6.7 fL 7.4 - 10.4 08/09/2014 [facility] Platelet 312 K/CMM 133 - 450 08/09/2014 [facility] Shoulder series DX Shoulder series DX RIGHT SHOULDER RADIOGRAPH 3 VIEW INDICATION: Pain COMPARISON: Right shoulder radiograph 02/10/2014 IMPRESSION: There are chronic fracture deformities of the distal clavicle and humeral head. No acute bony abnormalities are visualized. The acromioclavicular and glenohumeral joint spaces are maintained. SL: 16 08/09/2014 - - Read by: Trung Muniz MD Dictated Date/time: 08/09/14 04:14 Electronically Signed by: Trung Muniz MD 08/09/14 04:15 FINAL REPORT [facility] MPV 6.9 fL 7.4 - 10.4 05/09/2014 [facility] MCHC 33.2 g/dL 32.0 - 36.0 05/09/2014 [facility] RDW 13.9 % 11.5 - 14.5 05/09/2014 [facility] Platelet 239 K/CMM 133 - 450 05/09/2014 [facility] MCH 37.8 pg 27.0 - 31.0 05/09/2014 [facility] MCV 113.9 fL 81.0 - 99.0 05/09/2014 [facility] WBC 2.9 K/CMM 3.7 - 10.4 05/09/2014 [facility] Hct 39.9 % 36.0 - 48.0 05/09/2014 [facility] Hgb 13.2 g/dL 12.0 - 16.0 05/09/2014 [facility] RBC 3.50 M/CMM 4.20 - 5.40 05/09/2014 [facility] Eosinophils # 0.2 K/CMM 0.0 - 0.5 05/09/2014 [facility] Monocytes # 0.4 K/CMM 0.0 - 0.8 05/09/2014 [facility] Segs-Bands # 1.7 K/CMM 1.5 - 8.1 05/09/2014 [facility] Lymphocytes # 0.7 K/CMM 1.0 - 5.5 05/09/2014 [facility] Macrocyte 3+ *NA* (05/09/14 6:59 AM) None Seen 05/09/2014 [facility] Plt Morph Normal (05/09/14 6:59 AM) 05/09/2014 [facility] RBC Morph Normal (05/09/14 6:59 AM) 05/09/2014 [facility] Segs 57.9 % 45.0 - 75.0 05/09/2014 [facility] Lymphocytes 22.9 % 20.0 - 40.0 05/09/2014 [facility] Basophils 1.2 % 0.0 - 1.0 05/09/2014 [facility] Monocytes 12.3 % 2.0 - 12.0 05/09/2014 [facility] Eosinophils 5.7 % 0.0 - 4.0 05/09/2014 [facility] CHEM PANEL [id number] 1.9 mg/L 1.0 - 2.3 05/08/2014 [facility] CHEM PANEL LDH 118 unit/L 98 - 192 05/08/2014 [facility] MPV 7.2 fL 7.4 - 10.4 05/08/2014 [facility] Platelet 228 K/CMM 133 - 450 05/08/2014 [facility] RDW 13.8 % 11.5 - 14.5 05/08/2014 [facility] MCH 37.7 pg 27.0 - 31.0 05/08/2014 [facility] MCHC 32.7 g/dL 32.0 - 36.0 05/08/2014 [facility] MCV 115.3 fL 81.0 - 99.0 05/08/2014 [facility] Hct 36.0 % 36.0 - 48.0 05/08/2014 [facility] WBC 4.9 K/CMM 3.7 - 10.4 05/08/2014 [facility] RBC 3.12 M/CMM 4.20 - 5.40 05/08/2014 [facility] Hgb 11.8 g/dL 12.0 - 16.0 05/08/2014 [facility] Basophils # 0.1 K/CMM 0.0 - 0.2 05/08/2014 [facility] Macrocyte 3+ *NA* (05/08/14 12:10 AM) None Seen 05/08/2014 [facility] HEMATOLOGY Basophils 1.1 % 0.0 - 1.0 05/08/2014 [facility] HEMATOLOGY Segs-Bands # 3.7 K/CMM 1.5 - 8.1 05/08/2014 [facility] HEMATOLOGY Eosinophils 2.4 % 0.0 - 4.0 05/08/2014 [facility] HEMATOLOGY Segs 75.2 % 45.0 - 75.0 05/08/2014 [facility] HEMATOLOGY Lymphocytes # 0.6 K/CMM 1.0 - 5.5 05/08/2014 [facility] HEMATOLOGY Eosinophils # 0.1 K/CMM 0.0 - 0.5 05/08/2014 [facility] HEMATOLOGY Monocytes # 0.4 K/CMM 0.0 - 0.8 05/08/2014 [facility] HEMATOLOGY Monocytes 9.3 % 2.0 - 12.0 05/08/2014 [facility] HEMATOLOGY Lymphocytes 12.0 % 20.0 - 40.0 05/08/2014 [facility] HEMATOLOGY Retic Auto 1.2 % 0.5 - 1.5 05/08/2014 [facility] HEMATOLOGY Eosinophils # 0.1 K/CMM 0.0 - 0.5 05/07/2014 [facility] HEMATOLOGY Macrocyte 3+ *NA* (05/07/14 7:05 AM) None Seen 05/07/2014 [facility] HEMATOLOGY Monocytes # 0.4 K/CMM 0.0 - 0.8 05/07/2014 [facility] HEMATOLOGY Lymphocytes # 0.6 K/CMM 1.0 - 5.5 05/07/2014 [facility] HEMATOLOGY Segs-Bands # 2.1 K/CMM 1.5 - 8.1 05/07/2014 [facility] HEMATOLOGY Eosinophils 4.3 % 0.0 - 4.0 05/07/2014 [facility] HEMATOLOGY Basophils 1.2 % 0.0 - 1.0 05/07/2014 [facility] HEMATOLOGY Segs 62.9 % 45.0 - 75.0 05/07/2014 [facility] HEMATOLOGY Monocytes 12.6 % 2.0 - 12.0 05/07/2014 [facility] HEMATOLOGY Lymphocytes 19.0 % 20.0 - 40.0 05/07/2014 [facility] HEMATOLOGY WBC 3.3 K/CMM 3.7 - 10.4 05/07/2014 [facility] HEMATOLOGY RBC 3.24 M/CMM 4.20 - 5.40 05/07/2014 [facility] MCH 37.9 pg 27.0 - 31.0 05/07/2014 [facility] Hct 37.7 % 36.0 - 48.0 05/07/2014 [facility] MCV 116.1 fL 81.0 - 99.0 05/07/2014 [facility] Hgb 12.3 g/dL 12.0 - 16.0 05/07/2014 [facility] RDW 14.0 % 11.5 - 14.5 05/07/2014 [facility] MCHC 32.7 g/dL 32.0 - 36.0 05/07/2014 [facility] MPV 6.8 fL 7.4 - 10.4 05/07/2014 [facility] Platelet 247 K/CMM 133 - 450 05/07/2014 [facility] Spine cervical wo contrast CT Spine cervical wo contrast CT Examination: CT scan of the cervical spine without contrast. HISTORY: Pain with radiculopathy COMPARISON: None available. DLP: [id number] TECHNIQUE: Multiple axial CT images of the cervical spine were obtained without the administration of intravenous contrast. Multiplanar reformatted images were subsequently performed. FINDINGS: Postoperative changes of multilevel discectomy and interbody spacer placement from C4 through C7 are seen with complete intervertebral body osseous fusion. Anterior instrumentation for fusion at C6-C7 is seen with additional changes of posterior instrumentation for fusion from C4 through C7. No acute fracture-dislocation is seen. C2-C3: Mild bilateral facet arthrosis is seen. There is no spinal canal stenosis or neuroforaminal narrowing. C3-C4: Moderate to severe bilateral facet arthrosis is seen. Right-sided uncovertebral arthrosis is noted. There is no spinal canal stenosis or neuroforaminal narrowing. C4-C5: Moderate left facet arthrosis is seen. There is moderate left neuroforaminal narrowing without spinal canal stenosis. C5-C6: Right foraminal osteophyte is seen, resulting in mild right neuroforaminal narrowing. No spinal canal stenosis is seen. C6-C7: No significant spinal canal stenosis or neuroforaminal narrowing is seen. C7-T1: Moderate-sized circumferential disc osteophyte complex is seen with superimposed severe disc height loss. Moderate facet arthrosis is seen. There is no significant spinal canal stenosis or neuroforaminal narrowing. The paravertebral soft tissues are unremarkable. The visualized lung apices are normal in appearance. IMPRESSION: 1. Postoperative changes of multilevel fusion throughout the cervical spine from C4 through C7 with solid interbody fusion. 2. Multilevel degenerative changes of the cervical spine with moderate left neuroforaminal narrowing at C4-C5 and mild right neuroforaminal narrowing at C5-C6. SL: 14 05/06/2014 - - Read by: Rusty Rothman MD Dictated Date/time: 05/08/14 08:35 Electronically Signed by: Rusty Rothman MD 05/08/14 09:04 FINAL REPORT [facility] MOLECULAR DIAGNOSTIC C difficile DNA Negative 3 (05/05/14 12:24 PM) Negative 05/05/2014 3Interpretive Data: [employer] Clostridium difficile assay utilizes loop-mediated isothermal DNA amplification (LAMP) technology to detect a 204 bp region of the tcdA gene within the PaLoc gene segment present in all known toxigenic C. difficile strains. The assay utilizes FDA cleared IVD reagents. Performance characteristics have been verified by the [facility] within the [facility]. The [facility] is authorized under the Clinical Laboratory Improvement Amendment of 1988 (CLIA-88) to perform high complexity testing. [facility] TUMOR MARKERS CEA 6.3 ng/mL 0.0 - 3.0 05/05/2014 [facility] URINE AND STOOL UA Color Ltyellow 05/05/2014 [facility] URINE AND STOOL UA Spec Grav >=1.050 *ABN* (05/04/14 10:48 PM) <=1.030 05/05/2014 [facility] URINE AND STOOL UA Urobilinogen <=1.0 mg/dL 0.1 - 1.0 05/05/2014 [facility] URINE AND STOOL UA Protein Negative mg/dL Negative mg/dL 05/05/2014 [facility] URINE AND STOOL UA Ketones Negative mg/dL Negative mg/dL 05/05/2014 [facility] URINE AND STOOL UA Glucose Negative mg/dL Negative mg/dL 05/05/2014 [facility] URINE AND STOOL UA Bili Negative *NA* (05/04/14 10:48 PM) Negative 05/05/2014 [facility] URINE AND STOOL UA Sq Epi Occasional /LPF Few /LPF 05/05/2014 [facility] URINE AND STOOL UA Leuk Est Negative (05/04/14 10:48 PM) Negative 05/05/2014 [facility] URINE AND STOOL UA Nitrite Negative (05/04/14 10:48 PM) Negative 05/05/2014 [facility] URINE AND STOOL UA Blood Negative (05/04/14 10:48 PM) Negative 05/05/2014 [facility] URINE AND STOOL UA pH 7.0 5.0 - 8.0 05/05/2014 [facility] URINE AND STOOL UA Turbidity Clear (05/04/14 10:48 PM) Clear 05/05/2014 [facility] URINE AND STOOL UA RBC 1 /HPF 0 - 2 05/05/2014 [facility] URINE AND STOOL UA WBC null 0 - 5 05/05/2014 [facility] ANEMIA STUDY Folate Lvl 4.4 ng/mL >=3.0 ng/mL 05/04/2014 [facility] ANEMIA STUDY Vitamin B12 Lvl 1763 pg/mL 254 - 1320 05/04/2014 [facility] CHEM PANEL A/G Ratio 1.5 0.7 - 1.6 05/04/2014 [facility] CHEM PANEL B/C Ratio 16 6 - 25 05/04/2014 [facility] CHEM PANEL Globulin 2.6 g/dL 2.0 - 4.0 05/04/2014 [facility] CHEM PANEL AGAP 10.8 meq/L 10.0 - 20.0 05/04/2014 [facility] CHEM PANEL eGFR 73 mL/min/1.73m2 05/04/2014 1Result Comment: The eGFR is calculated using [...] from the National Kidney Disease Education Program (NKDEP) which additionally recommends that when the eGFR is used in patients with extremes of body mass index for purposes of drug dosing, the eGFR should be multiplied by the estimated BMI. [facility] CHEM PANEL Potassium Lvl 3.8 meq/L 3.5 - 5.1 05/04/2014 [facility] CHEM PANEL Sodium Lvl 134 meq/L 135 - 145 05/04/2014 [facility] CHEM PANEL Bili Total 0.4 mg/dL 0.2 - 1.3 05/04/2014 [facility] CHEM PANEL Alk Phos 110 unit/L 39 - 136 05/04/2014 [facility] CHEM PANEL Glucose Lvl 93 mg/dL 70 - 99 05/04/2014 2Interpretive Data: Adult reference range values reflect the clinical guidelines of the [place] [employer]. [facility] CHEM PANEL Creatinine Lvl 0.9 mg/dL 0.5 - 1.4 05/04/2014 [facility] CHEM PANEL BUN 14 mg/dL 7 - 22 05/04/2014 [facility] CHEM PANEL Calcium Lvl 8.9 mg/dL 8.5 - 10.5 05/04/2014 [facility] CHEM PANEL Chloride Lvl 99 meq/L 95 - 109 05/04/2014 [facility] CHEM PANEL CO2 28 meq/L 24 - 32 05/04/2014 [facility] CHEM PANEL AST 27 unit/L 0 - 37 05/04/2014 [facility] CHEM PANEL ALT 23 unit/L 0 - 65 05/04/2014 [facility] CHEM PANEL Total Protein 6.5 g/dL 6.4 - 8.4 05/04/2014 [facility] CHEM PANEL Albumin Lvl 3.9 g/dL 3.5 - 5.0 05/04/2014 [facility] CHEM PANEL Magnesium Lvl 1.9 mg/dL 1.8 - 2.4 05/04/2014 [facility] TUMOR MARKERS CA 27 29 33 unit/mL 0 - 40 05/04/2014 [facility] TUMOR MARKERS CA 15-3 21.3 unit/mL 0.0 - 31.0 05/04/2014 [facility] Chest/Abd/Pel w IV contrast/Abd wo CT Chest/Abd/Pel w IV contrast/Abd wo CT PROCEDURE: CT of the chest, abdomen and pelvis with intravenous contrast. INDICATION: Mass Technique: Axial images of the chest, abdomen and pelvis were obtained following 100 cc IV contrast injection. CHEST: EXAMINATION: The chest is performed after intravenous contrast administration and reveals some scattered areas of groundglass opacity and scarring in the apices of the lungs. Changes are more prominent on the left than the right. The lungs appear mildly hyperexpanded in a fashion suspicious of emphysema. There is no evidence of aortic dissection or aneurysm. The ascending aorta measures 2.9 cm in diameter which is within normal limits. The heart is not enlarged. There is no evidence of pulmonary mass or consolidation. IMPRESSION: Patchy areas of fibrotic change in the upper lobes, more prominent on the left than right, consistent with scarring from previous infection. 2. Otherwise negative CT chest with contrast. ABDOMEN WITHOUT CONTRAST: A precontrast study of the abdomen has been performed for evaluation of possible renal calculus. The study reveals no evidence of calcification in the region kidneys or hydronephrosis. The patient has some orthopedic stabilization screws associated with the mid lumbar spine for fixation of a short segment scoliosis (probably). ABDOMEN/PELVIS: Postcontrast images of the abdomen demonstrate normal appearance of the liver and spleen. The kidneys are free of hydronephrosis or mass. There is some calcific atherosclerosis of the infrarenal abdominal aorta. The bowel is normal in course and caliber. The gallbladder is partially contracted. As previously noted, there is orthopedic hardware associated with fixation of vertebral bodies in the mid lumbar region. In the pelvis, the bladder is minimally distended there is a fluid collection on the right posterior lateral margin of the urethra which likely represents a urethral diverticulum. The uterus, if present, is very small and deviated to the right of midline. The patient may have had a hysterectomy or partial hysterectomy. ABDOMEN/PELVIS IMPRESSION: 1. Suspect hysterectomy or partial hysterectomy. Otherwise, the uterus is small. 2. Fixation hardware associated with the mid lumbar spine. 3. Right posterior lateral urethral diverticulum. SL: 12 05/04/2014 - - Read by: Francisco Joshi MD Dictated Date/time: 05/04/14 19:50 Electronically Signed by: Francisco Joshi MD 05/04/14 19:58 FINAL REPORT [facility] 2 views Chest 2 views CHEST RADIOGRAPH 2 VIEWS INDICATION: Abnormal chest sounds COMPARISON: Chest radiograph 09/19/2013 FINDINGS: The bilateral costophrenic sulci are incompletely included in the radiograph. There is nonspecific hyperexpansion of the lungs. There is mild scarring and pleural thickening of the apices. There is no consolidation, pleural effusion, or pneumothorax. No suspicious pulmonary nodules are identified. The cardiomediastinal silhouette and pulmonary vasculature are within normal limits. No acute bony abnormalities are seen. Surgical clips are superimposed over the chest bilaterally. IMPRESSION: No acute intrathoracic abnormalities are visualized. SL: 16 05/04/2014 - - Read by: Trung Muniz MD Dictated Date/time: 05/04/14 15:35 Electronically Signed by: Trung Muniz MD 05/04/14 15:37 FINAL REPORT [facility] Shoulder series Shoulder series RIGHT SHOULDER SERIES CLINICAL HISTORY: Breast cancer and shoulder pain. COMPARISON IMAGING: None. FINDINGS: Three views of the shoulder were acquired. Glenohumeral joint appears preserved. There is an old healed fracture of the distal right clavicle. Bones are demineralized. Contour of the greater tuberosity of the humeral head is indicative of a prior Hill-Sachs impaction fracture. This is of unknown chronicity. Surgical hardware along the cervical spine and a chemotherapy infusion catheter are identified. IMPRESSION: Healed distal clavicular fracture. Hill-Sachs impaction fracture of unknown chronicity. This occurs with an anterior shoulder dislocation. Correlation with the clinical history and physical exam is recommended. 02/10/2014 - - Read by: Diony George Dictated Date/time: 02/10/14 16:03 Electronically Signed by: Diony George MD 02/10/14 16:06 FINAL REPORT [facility] [place] CHEMISTRY Magnesium Lvl 1.8 mg/dL 1.8 - 2.4 10/21/2013 Normal [facility] CHEMISTRY eGFR 104 mL/min/1.73m2 10/21/2013 1Result Comment: The eGFR is calculated using [...] from the National Kidney Disease Education Program (NKDEP) which additionally recommends that when the eGFR is used in patients with extremes of body mass index for purposes of drug dosing, the eGFR should be multiplied by the estimated BMI. [facility] CHEMISTRY Creatinine Lvl 0.6 mg/dL 0.5 - 1.4 10/21/2013 Normal [facility] CHEMISTRY CO2 25 meq/L 24 - 32 10/21/2013 Normal [facility] CHEMISTRY Calcium Lvl 8.7 mg/dL 8.5 - 10.5 10/21/2013 Normal [facility] CHEMISTRY Total Protein 6.0 g/dL 6.4 - 8.4 10/21/2013 LOW [facility] CHEMISTRY Potassium Lvl 4.4 meq/L 3.5 - 5.1 10/21/2013 Normal [facility] CHEMISTRY Chloride Lvl 104 meq/L 95 - 109 10/21/2013 Normal [facility] CHEMISTRY Sodium Lvl 139 meq/L 135 - 145 10/21/2013 Normal [facility] CHEMISTRY ALANINE AMINOTRANSFERASE 16 unit/L 0 - 65 10/21/2013 Normal [facility] CHEMISTRY Albumin Lvl 3.6 g/dL 3.5 - 5.0 10/21/2013 Normal [facility] CHEMISTRY Alk Phos 102 unit/L 39 - 136 10/21/2013 Normal [facility] CHEMISTRY Bili Total 0.4 mg/dL 0.2 - 1.3 10/21/2013 Normal [facility] CHEMISTRY ASPARTATE TRANSAMINASE 33 unit/L 0 - 37 10/21/2013 Normal [facility] CHEMISTRY BUN 11 mg/dL 7 - 22 10/21/2013 Normal [facility] CHEMISTRY Glucose Lvl 80 mg/dL 70 - 99 10/21/2013 Normal 2Interpretive Data: Adult reference range values reflect the clinical guidelines of the [place] [employer]. [facility] CHEMISTRY A/G Ratio 1.5 0.7 - 1.6 10/21/2013 Normal [facility] CHEMISTRY B/C Ratio 18 6 - 25 10/21/2013 Normal [facility] CHEMISTRY Globulin 2.4 g/dL 2.0 - 4.0 10/21/2013 Normal [facility] CHEMISTRY AGAP 14.4 meq/L 10.0 - 20.0 10/21/2013 Normal [facility] HEMATOLOGY Segs 73.9 % 45.0 - 75.0 10/21/2013 Normal [facility] HEMATOLOGY Lymphocytes 16.6 % 20.0 - 40.0 10/21/2013 LOW [facility] HEMATOLOGY Monocytes 9.0 % 2.0 - 12.0 10/21/2013 Normal [facility] HEMATOLOGY Basophils # 0.0 K/CMM 0.0 - 0.2 10/21/2013 Normal [facility] HEMATOLOGY Eosinophils # 0.0 K/CMM 0.0 - 0.5 10/21/2013 Normal [facility] HEMATOLOGY Lymphocytes # 1.0 K/CMM 1.0 - 5.5 10/21/2013 Normal [facility] HEMATOLOGY Monocytes # 0.5 K/CMM 0.0 - 0.8 10/21/2013 Normal [facility] HEMATOLOGY Eosinophils 0.0 % 0.0 - 4.0 10/21/2013 Normal [facility] HEMATOLOGY Basophils 0.5 % 0.0 - 1.0 10/21/2013 Normal [facility] HEMATOLOGY Segs-Bands # 4.3 K/CMM 1.5 - 8.1 10/21/2013 Normal [facility] HEMATOLOGY MPV 7.1 fL 7.4 - 10.4 10/21/2013 LOW [facility] HEMATOLOGY Platelet 421 K/CMM 133 - 450 10/21/2013 Normal [facility] HEMATOLOGY RDW 19.8 % 11.5 - 14.5 10/21/2013 [facility] HEMATOLOGY MCHC 33.4 g/dL 32.0 - 36.0 10/21/2013 Normal [facility] HEMATOLOGY MCV 107.9 fL 81.0 - 99.0 10/21/2013 [facility] HEMATOLOGY MCH 36.0 pg 27.0 - 31.0 10/21/2013 [facility] HEMATOLOGY Hct 36.3 % 36.0 - 48.0 10/21/2013 Normal [facility] HEMATOLOGY Hgb 12.1 g/dL 12.0 - 16.0 10/21/2013 Normal [facility] HEMATOLOGY RBC X 10x6 3.36 M/CMM 4.20 - 5.40 10/21/2013 LOW [facility] HEMATOLOGY WBC X 10x3 5.8 K/CMM 3.7 - 10.4 10/21/2013 Normal [facility] HEMATOLOGY Monocytes 3.2 % 2.0 - 12.0 09/22/2013 Normal [facility] HEMATOLOGY Toxic Gran Slight *ABN* (09/22/2013 03:45:20) None Seen 09/22/2013 ABN [facility] HEMATOLOGY Eosinophils # 0.0 K/CMM 0.0 - 0.5 09/22/2013 Normal [facility] HEMATOLOGY Monocytes # 0.3 K/CMM 0.0 - 0.8 09/22/2013 Normal [facility] HEMATOLOGY Basophils 0.4 % 0.0 - 1.0 09/22/2013 Normal [facility] HEMATOLOGY Segs-Bands # 8.4 K/CMM 1.5 - 8.1 09/22/2013 [facility] HEMATOLOGY Lymphocytes # 1.2 K/CMM 1.0 - 5.5 09/22/2013 Normal [facility] HEMATOLOGY Lymphocytes 12.1 % 20.0 - 40.0 09/22/2013 LOW [facility] HEMATOLOGY Eosinophils 0.1 % 0.0 - 4.0 09/22/2013 Normal [facility] HEMATOLOGY Dohle Bodies Slight *ABN* (09/22/2013 03:45:20) None Seen 09/22/2013 ABN [facility] HEMATOLOGY Basophils # 0.0 K/CMM 0.0 - 0.2 09/22/2013 Normal [facility] HEMATOLOGY Polychrom Slight (09/22/2013 03:45:20) None Seen 09/22/2013 Normal [facility] HEMATOLOGY Plt Morph Normal (09/22/2013 03:45:20) 09/22/2013 Normal [facility] HEMATOLOGY Segs 84.2 % 45.0 - 75.0 09/22/2013 [facility] HEMATOLOGY MCH 35.1 pg 27.0 - 31.0 09/22/2013 [facility] HEMATOLOGY MPV 10.7 fL 7.4 - 10.4 09/22/2013 [facility] HEMATOLOGY WBC X 10x3 10.0 K/CMM 3.7 - 10.4 09/22/2013 Normal [facility] HEMATOLOGY Hgb 8.6 g/dL 12.0 - 16.0 09/22/2013 [facility] HEMATOLOGY RBC X 10x6 2.44 M/CMM 4.20 - 5.40 09/22/2013 [facility] HEMATOLOGY RDW 16.0 % 11.5 - 14.5 09/22/2013 [facility] HEMATOLOGY Hct 25.8 % 36.0 - 48.0 09/22/2013 [facility] HEMATOLOGY MCV 105.6 fL 81.0 - 99.0 09/22/2013 [facility] HEMATOLOGY MCHC 33.2 g/dL 32.0 - 36.0 09/22/2013 Normal [facility] HEMATOLOGY Platelet 63 K/CMM 133 - 450 09/22/2013 [facility] HEMATOLOGY Hgb 8.8 g/dL 12.0 - 16.0 09/21/2013 [facility] HEMATOLOGY RBC X 10x6 2.53 M/CMM 4.20 - 5.40 09/21/2013 [facility] HEMATOLOGY MCV 104.8 fL 81.0 - 99.0 09/21/2013 [facility] HEMATOLOGY MCH 34.5 pg 27.0 - 31.0 09/21/2013 [facility] HEMATOLOGY Hct 26.6 % 36.0 - 48.0 09/21/2013 [facility] HEMATOLOGY WBC X 10x3 4.4 K/CMM 3.7 - 10.4 09/21/2013 Normal [facility] HEMATOLOGY RDW 15.8 % 11.5 - 14.5 09/21/2013 HI [facility] HEMATOLOGY MCHC 32.9 g/dL 32.0 - 36.0 09/21/2013 Normal [facility] HEMATOLOGY Platelet 42 K/CMM 133 - 450 09/21/2013 LOW [facility] HEMATOLOGY MPV 10.2 fL 7.4 - 10.4 09/21/2013 Normal [facility] HEMATOLOGY Segs-Bands # 3.1 K/CMM 1.5 - 8.1 09/21/2013 Normal [facility] HEMATOLOGY Monocytes # 0.4 K/CMM 0.0 - 0.8 09/21/2013 Normal [facility] HEMATOLOGY Plt Morph Normal (09/21/2013 05:01:00) 09/21/2013 Normal [facility] HEMATOLOGY Lymphocytes # 0.9 K/CMM 1.0 - 5.5 09/21/2013 LOW [facility] HEMATOLOGY Monocytes 9.1 % 2.0 - 12.0 09/21/2013 Normal [facility] HEMATOLOGY Segs 70.5 % 45.0 - 75.0 09/21/2013 Normal [facility] HEMATOLOGY Lymphocytes 19.8 % 20.0 - 40.0 09/21/2013 LOW [facility] HEMATOLOGY Eosinophils 0.2 % 0.0 - 4.0 09/21/2013 Normal [facility] HEMATOLOGY Basophils 0.4 % 0.0 - 1.0 09/21/2013 Normal [facility] HEMATOLOGY Basophils # 0.0 K/CMM 0.0 - 0.2 09/21/2013 Normal [facility] HEMATOLOGY Eosinophils # 0.0 K/CMM 0.0 - 0.5 09/21/2013 Normal [facility] HEMATOLOGY Polychrom Slight (09/21/2013 05:01:00) None Seen 09/21/2013 Normal [facility] HEMATOLOGY Toxic Gran Slight *ABN* (09/21/2013 05:01:00) None Seen 09/21/2013 ABN [facility] HEMATOLOGY Dohle Bodies Slight *ABN* (09/21/2013 05:01:00) None Seen 09/21/2013 ABN [facility] STOOL TESTS Fecal Leukocyte None Seen 1 (09/20/2013 10:30:00) 09/20/2013 Normal 1Interpretive Data: A Value of None Seen, Rare, or Few is Normal. [facility] STOOL TESTS Occult Bld Stl Negative (09/20/2013 10:30:00) Negative 09/20/2013 Normal [facility] URINALYSIS UA Color Ltyellow 09/20/2013 [facility] URINALYSIS UA Urobilinogen <=1.0 mg/dL 0.1 - 1.0 09/20/2013 [facility] URINALYSIS UA Nitrite Negative (09/19/2013 19:28:00) Negative 09/20/2013 Normal [facility] URINALYSIS UA Leuk Est Negative (09/19/2013 19:28:00) Negative 09/20/2013 Normal [facility] URINALYSIS UA Sq Epi Occasional /LPF Few 09/20/2013 [facility] URINALYSIS UA Blood Negative (09/19/2013 19:28:00) Negative 09/20/2013 Normal [facility] URINALYSIS UA Protein Negative mg/dL Negative 09/20/2013 Normal [facility] URINALYSIS UA Bili Negative *NA* (09/19/2013 19:28:00) Negative 09/20/2013 [facility] URINALYSIS UA Glucose Negative mg/dL Negative 09/20/2013 [facility] URINALYSIS UA Ketones Negative mg/dL Negative 09/20/2013 [facility] URINALYSIS UA pH 6.0 5.0 - 8.0 09/20/2013 Normal [facility] URINALYSIS UA Spec Grav 1.005 <=1.030 09/20/2013 Normal [facility] URINALYSIS UA Turbidity Clear (09/19/2013 19:28:00) Clear 09/20/2013 Normal [facility] CHEMISTRY Magnesium Lvl 1.8 mg/dL 1.8 - 2.4 09/20/2013 Normal [facility] CHEMISTRY A/G Ratio 1.1 0.7 - 1.6 09/20/2013 Normal [facility] CHEMISTRY Globulin 2.8 g/dL 2.0 - 4.0 09/20/2013 Normal [facility] CHEMISTRY B/C Ratio 17 6 - 25 09/20/2013 Normal [facility] CHEMISTRY AGAP 13.8 meq/L 10.0 - 20.0 09/20/2013 Normal [facility] CHEMISTRY eGFR 105 mL/min/1.73m2 09/20/2013 2Result Comment: The eGFR is calculated using the [...] from the National Kidney Disease Education Program (NKDEP) which additionally recommends that when the eGFR is used in patients with extremes of body mass index for purposes of drug dosing, the eGFR should be multiplied by the estimated BMI. [facility] CHEMISTRY Albumin Lvl 3.1 g/dL 3.5 - 5.0 09/20/2013 LOW [facility] CHEMISTRY Total Protein 5.9 g/dL 6.4 - 8.4 09/20/2013 LOW [facility] CHEMISTRY Calcium Lvl 8.6 mg/dL 8.5 - 10.5 09/20/2013 Normal [facility] CHEMISTRY Bili Total 0.4 mg/dL 0.2 - 1.3 09/20/2013 Normal [facility] CHEMISTRY ALANINE AMINOTRANSFERASE 14 unit/L 0 - 65 09/20/2013 Normal [facility] CHEMISTRY Alk Phos 91 unit/L 39 - 136 09/20/2013 Normal [facility] CHEMISTRY ASPARTATE TRANSAMINASE 12 unit/L 0 - 37 09/20/2013 Normal [facility] CHEMISTRY Glucose Lvl 130 mg/dL 70 - 99 09/20/2013 HI 3Interpretive Data: Adult reference range values reflect the clinical guidelines of the [place] [employer]. [facility] CHEMISTRY Creatinine Lvl 0.6 mg/dL 0.5 - 1.4 09/20/2013 Normal [facility] CHEMISTRY Chloride Lvl 101 meq/L 95 - 109 09/20/2013 Normal [facility] CHEMISTRY CO2 26 meq/L 24 - 32 09/20/2013 Normal [facility] CHEMISTRY Potassium Lvl 3.8 meq/L 3.5 - 5.1 09/20/2013 Normal [facility] CHEMISTRY BUN 10 mg/dL 7 - 22 09/20/2013 Normal [facility] CHEMISTRY Sodium Lvl 137 meq/L 135 - 145 09/20/2013 Normal [facility] HEMATOLOGY MCHC 34.1 g/dL 32.0 - 36.0 09/20/2013 Normal [facility] HEMATOLOGY Platelet 39 K/CMM 133 - 450 09/20/2013 LOW [facility] HEMATOLOGY RDW 15.8 % 11.5 - 14.5 09/20/2013 HI [facility] HEMATOLOGY Hgb 10.1 g/dL 12.0 - 16.0 09/20/2013 LOW [facility] HEMATOLOGY RBC X 10x6 2.88 M/CMM 4.20 - 5.40 09/20/2013 LOW [facility] HEMATOLOGY Hct 29.7 % 36.0 - 48.0 09/20/2013 LOW [facility] HEMATOLOGY MCV 103.3 fL 81.0 - 99.0 09/20/2013 [facility] HEMATOLOGY WBC X 10x3 1.3 K/CMM 3.7 - 10.4 09/20/2013 CRIT 4Result Comment: Critical Result(s) called to ester urbano 09/19/2013 19:10_ by_ws. Read back OK. [facility] MPV 9.9 fL 7.4 - 10.4 09/20/2013 Normal [facility] HEMATOLOGY MCH 35.2 pg 27.0 - 31.0 09/20/2013 [facility] HEMATOLOGY RBC Morph Normal (09/19/2013 18:39:00) 09/20/2013 Normal [facility] Lymphocytes 74.0 % 20.0 - 40.0 09/20/2013 [facility] HEMATOLOGY Monocytes 13.0 % 2.0 - 12.0 09/20/2013 [facility] HEMATOLOGY Segs-Bands # 0.2 K/CMM 1.5 - 8.1 09/20/2013 LOW [facility] HEMATOLOGY Bands 7.0 % 0.0 - 11.0 09/20/2013 Normal [facility] HEMATOLOGY Segs 6.0 % 45.0 - 75.0 09/20/2013 LOW [facility] Monocytes # 0.2 K/CMM 0.0 - 0.8 09/20/2013 Normal [facility] Plt Morph Normal (09/19/2013 18:39:00) 09/20/2013 Normal [facility] Lymphocytes # 1.0 K/CMM 1.0 - 5.5 09/20/2013 Normal [facility] Chest 2 views Chest 2 views PROCEDURE: Chest 2 views REASON FOR EXAM: See Clinic Indication CLINICAL INDICATION: Abnormal chest sounds COMPARISON: 08/08/2013. FINDINGS: No acute process. No focal consolidation, pleural effusion, or pneumothorax. The lungs are hyperexpanded. Surgical clips project over the right hilar and left axillary regions. Stable cardiac silhouette and mediastinum. Extensive postoperative cervical and lumbar spinal fusions are present. Right nisha catheter is present. SL: 12 09/19/2013 - - Read by: Art Tomas Dictated Date/time: 09/19/13 21:41 Electronically Signed by: Art Tomas MD 09/19/13 21:42 FINAL REPORT [facility] Spine lumbar w/wo contrast MRI Spine lumbar w/wo contrast MRI MRI LUMBAR SPINE WITH AND WITHOUT CONTRAST INDICATION: Back pain COMPARISON: Concurrent CT of the lumbar spine, lumbar spine radiograph 08/10/2013 DISCUSSION: Metallic susceptibility artifact from orthopedic hardware, from L2 through L4, limits evaluation of the lumbar spine. The usual five non-rib bearing lumbar vertebral bodies are present. Alignment: There is mild levoscoliosis of the lumbar spine. Vertebral body alignment is otherwise within normal limits. Vertebral bodies: There are postoperative fusion changes from L2 through L4. Refer to the concurrent CT of the lumbar spine for thorough description of orthopedic hardware. Although the signal is distorted from metallic susceptibility artifact, the vertebral bodies are grossly normal in signal and height. There is no appreciable bone marrow edema or enhancement of the irregular sclerotic endplates at L3-L4, seen in the concurrent CT. Lower thoracic cord and cauda equina: The distal cord is normal in signal. The tip of the conus is at the L1-L2 level. The cauda equina is unremarkable, without clumping of the nerve roots. Soft tissues: No signal abnormalities are visualized. Paraspinal muscles: The paraspinal muscles appear well preserved, without definite signal abnormality. Disc spaces, foramina and spinal canal: T12-L1 and L1-L2: The discs are normal in height and signal. There is no significant hypertrophy. The spinal canal and foramina are patent. L2-L3: There are postoperative fusion changes. There is no significant facet hypertrophy. The spinal canal and foramina are patent. L3-L4: Postoperative fusion changes. There is no significant facet hypertrophy. Mild disc bulge results in mild narrowing of the spinal canal and mild bilateral foraminal stenosis, right more than left. The lateral recesses are patent, without nerve root impingement. L4-L5: The left foramen is poorly visualized due to metallic susceptibility artifact. The disc is normal in height and signal. There is no significant facet hypertrophy. The spinal canal and right foramen are patent. The left foramen is grossly patent. L5-S1: The disc is normal in height and signal. There is no significant facet hypertrophy. The spinal canal and foramina are patent. Grossly, no enhancing abnormalities are identified; although, evaluation is limited due to signal distortion from metallic susceptibility artifact. IMPRESSION: 1. Postoperative fusion changes of the lumbar spine from L2 through L4. 2. Mild disc bulge at L3-L4 results in mild narrowing of the spinal canal and mild bilateral foraminal stenosis, right more than left. There is otherwise no significant lumbar spondylosis. The spinal canal and foramina are patent. SL: 16 08/12/2013 - - Read by: Trung Muniz Dictated Date/time: 08/12/13 12:05 Electronically Signed by: Trung Muniz MD 08/12/13 12:23 FINAL REPORT [facility] Spine lumbar wo contrast CT Spine lumbar wo contrast CT CT LUMBAR SPINE WITHOUT CONTRAST INDICATION: Back pain COMPARISON: Lumbar spine radiograph 08/10/2013 DISCUSSION: The usual five non-rib bearing lumbar vertebral bodies are present. Alignment: There is mild levoscoliosis of the lumbar spine. Vertebral body alignment is otherwise within normal limits. Vertebral bodies: As seen in the recent lumbar radiograph, there is fusion of the lumbar spine from L2 through L4. Left lateral plates and screws are present at L2-L3 and L3-L4. Bilateral facet screws are present at L2-L3 and L3-L4. The screws do not violate the spinal canal or foramina. Interbody cages are present at L2-L3 and L3-L4. Complete solid bony fusion is not present. As described in the comparison radiograph, the endplates at L3-L4 appear irregular and sclerotic. The vertebral bodies are normal in height, without compression or displaced fractures. Soft tissues: Grossly unremarkable. Sacroiliac joints: Unremarkable. Disc spaces, foramina and spinal canal: T12-L1 and L1-L2: The disc spaces are maintained. There is no significant facet hypertrophy. The spinal canal and foramina are grossly patent. L2-L3 and L3-L4: There are fusion changes as described above. There is no significant facet hypertrophy. The spinal canal and foramina are grossly patent. L4-L5 and L5-S1: The disc spaces are maintained. There is no significant facet hypertrophy. The spinal canal and foramina are grossly patent. IMPRESSION: 1. Postoperative fusion of the lumbar spine, from L2 through L4, as described. 2. Endplate changes at L3-L4 are likely chronic, given the presence of sclerosis. 3. There is no significant spondylosis of the nonfused levels of the lumbar spine. There is no appreciably significant spinal canal or foraminal stenosis. SL: 16 08/11/2013 - - Read by: Trung Muniz Dictated Date/time: 08/12/13 11:43 Electronically Signed by: Trung Muniz MD 08/12/13 12:05 FINAL REPORT [facility] INFECTIOUS DISEASES C difficile DNA Positive 1, 2 *ABN* (08/10/2013 10:55:00) Negative 08/10/2013 ABN 2Interpretive Data: [employer] Clostridium difficile assay utilizes loop-mediated isothermal DNA amplification (LAMP) technology to detect a 204 bp region of the tcdA gene within the PaLoc gene segment present in all known toxigenic C. difficile strains. The assay utilizes FDA cleared IVD reagents. Performance characteristics have been verified by the [facility] within the [facility]. The [facility] is authorized under the Clinical Laboratory Improvement Amendment of 1988 (CLIA-88) to perform high complexity testing. [facility] STOOL TESTS Fecal Leukocyte Moderate 3 (08/10/2013 10:55:00) 08/10/2013 Normal 3Interpretive Data: A Value of None Seen, Rare, or Few is Normal. [facility] STOOL TESTS Occult Bld Stl Negative (08/10/2013 10:55:00) Negative 08/10/2013 Normal [facility] Spine lumbar minimum 4 views Spine lumbar minimum 4 views Lumbar spine, 5 views. HISTORY: Backache. COMPARISON: None available. FINDINGS: Laminectomy and fusion at L2-L4 achieved by left lateral plate and screws, interbody cages, and facet screws. No evidence of hardware loosening. No fracture is seen. No spondylolisthesis. There is marked endplate sclerosis at L3/L4. There is a mild focal lumbar levoscoliosis centered at L3/L4. SL: 12 08/10/2013 - - Read by: Deuce Zamora Dictated Date/time: 08/10/13 17:55 Electronically Signed by: Deuce Zamora MD 08/10/13 17:58 FINAL REPORT [facility] Spine thoracic 3 views Spine thoracic 3 views Thoracic spine 3 views. COMPARISON: No priors. FINDINGS: Postsurgical changes with metal hardware noted at the base of the cervical spine. Thoracic spine demonstrates normal morphology with no evidence for fracture or subluxation. Mild spondylosis is present at C7-T1 level. Mild dextroscoliosis of thoracic spine is noted with apex of the curvature at approximately T9 level. Right subclavian Port-A-Cath terminates in the SVC. Various EKG leads and wires project over the patient's chest. SL:13 08/10/2013 - - Read by: Rock Matias Dictated Date/time: 08/10/13 16:14 Electronically Signed by: Rock Matias MD 08/10/13 16:17 FINAL REPORT [facility] HEMATOLOGY Eosinophils # 0.0 K/CMM 0.0 - 0.5 08/10/2013 Normal [facility] HEMATOLOGY Basophils # 0.0 K/CMM 0.0 - 0.2 08/10/2013 Normal [facility] HEMATOLOGY Segs 84.1 % 45.0 - 75.0 08/10/2013 HI [facility] HEMATOLOGY Lymphocytes 13.9 % 20.0 - 40.0 08/10/2013 LOW [facility] HEMATOLOGY Monocytes 1.5 % 2.0 - 12.0 08/10/2013 LOW [facility] HEMATOLOGY Eosinophils 0.3 % 0.0 - 4.0 08/10/2013 Normal [facility] HEMATOLOGY Basophils 0.2 % 0.0 - 1.0 08/10/2013 Normal [facility] HEMATOLOGY Monocytes # 0.1 K/CMM 0.0 - 0.8 08/10/2013 Normal [facility] HEMATOLOGY Segs-Bands # 6.8 K/CMM 1.5 - 8.1 08/10/2013 Normal [facility] HEMATOLOGY Lymphocytes # 1.1 K/CMM 1.0 - 5.5 08/10/2013 Normal [facility] HEMATOLOGY Platelet 175 K/CMM 133 - 450 08/10/2013 Normal [facility] HEMATOLOGY MPV 8.0 fL 7.4 - 10.4 08/10/2013 Normal [facility] HEMATOLOGY WBC X 10x3 8.1 K/CMM 3.7 - 10.4 08/10/2013 Normal [facility] HEMATOLOGY RBC X 10x6 2.99 M/CMM 4.20 - 5.40 08/10/2013 LOW [facility] HEMATOLOGY Hct 30.8 % 36.0 - 48.0 08/10/2013 LOW [facility] HEMATOLOGY MCV 103.0 fL 81.0 - 99.0 08/10/2013 HI [facility] HEMATOLOGY Hgb 10.1 g/dL 12.0 - 16.0 08/10/2013 [facility] HEMATOLOGY RDW 14.7 % 11.5 - 14.5 08/10/2013 [facility] HEMATOLOGY MCH 33.8 pg 27.0 - 31.0 08/10/2013 [facility] HEMATOLOGY MCHC 32.8 g/dL 32.0 - 36.0 08/10/2013 Normal [facility] CHEMISTRY CO2 23 meq/L 24 - 32 08/09/2013 LOW [facility] CHEMISTRY BUN 6 mg/dL 7 - 22 08/09/2013 LOW [facility] CHEMISTRY AGAP 12.8 meq/L 10.0 - 20.0 08/09/2013 Normal [facility] CHEMISTRY Total Protein 4.8 g/dL 6.4 - 8.4 08/09/2013 LOW [facility] CHEMISTRY Calcium Lvl 7.7 mg/dL 8.5 - 10.5 08/09/2013 [facility] CHEMISTRY ASPARTATE TRANSAMINASE 6 unit/L 0 - 37 08/09/2013 Normal [facility] CHEMISTRY Creatinine Lvl 0.5 mg/dL 0.5 - 1.4 08/09/2013 Normal [facility] CHEMISTRY Glucose Lvl 104 mg/dL 70 - 99 08/09/2013 [place] 6Interpretive Data: Adult reference range values reflect the clinical guidelines of the [place] [employer]. [facility] CHEMISTRY Albumin Lvl 2.7 g/dL 3.5 - 5.0 08/09/2013 [facility] CHEMISTRY B/C Ratio 12 6 - 25 08/09/2013 Normal [facility] CHEMISTRY Globulin 2.1 g/dL 2.0 - 4.0 08/09/2013 Normal [facility] CHEMISTRY eGFR 112 mL/min/1.73m2 08/09/2013 4Result Comment: The eGFR is calculated using the [...] from the National Kidney Disease Education Program (NKDEP) which additionally recommends that when the eGFR is used in patients with extremes of body mass index for purposes of drug dosing, the eGFR should be multiplied by the estimated BMI. [facility] CHEMISTRY Alk Phos 54 unit/L 39 - 136 08/09/2013 Normal [facility] CHEMISTRY A/G Ratio 1.3 0.7 - 1.6 08/09/2013 Normal [facility] CHEMISTRY Bili Total 0.2 mg/dL 0.2 - 1.3 08/09/2013 Normal [facility] CHEMISTRY ALANINE AMINOTRANSFERASE 11 unit/L 0 - 65 08/09/2013 Normal [facility] CHEMISTRY Chloride Lvl 100 meq/L 95 - 109 08/09/2013 Normal [facility] CHEMISTRY Potassium Lvl 3.8 meq/L 3.5 - 5.1 08/09/2013 Normal [facility] CHEMISTRY Sodium Lvl 132 meq/L 135 - 145 08/09/2013 LOW [facility] HEMATOLOGY RBC X 10x6 3.03 M/CMM 4.20 - 5.40 08/09/2013 LOW [facility] HEMATOLOGY WBC X 10x3 1.7 K/CMM 3.7 - 10.4 08/09/2013 LOW [facility] HEMATOLOGY Hgb 10.3 g/dL 12.0 - 16.0 08/09/2013 LOW [facility] HEMATOLOGY MCV 101.5 fL 81.0 - 99.0 08/09/2013 HI [facility] HEMATOLOGY Hct 30.8 % 36.0 - 48.0 08/09/2013 LOW [facility] HEMATOLOGY RDW 15.0 % 11.5 - 14.5 08/09/2013 HI [facility] HEMATOLOGY MCHC 33.6 g/dL 32.0 - 36.0 08/09/2013 Normal [facility] HEMATOLOGY Platelet 166 K/CMM 133 - 450 08/09/2013 Normal [facility] HEMATOLOGY MCH 34.1 pg 27.0 - 31.0 08/09/2013 [facility] HEMATOLOGY MPV 8.1 fL 7.4 - 10.4 08/09/2013 Normal [facility] HEMATOLOGY Eosinophils 1.4 % 0.0 - 4.0 08/09/2013 Normal [facility] HEMATOLOGY Basophils 0.4 % 0.0 - 1.0 08/09/2013 Normal [facility] HEMATOLOGY Eosinophils # 0.0 K/CMM 0.0 - 0.5 08/09/2013 Normal [facility] HEMATOLOGY Segs-Bands # 1.0 K/CMM 1.5 - 8.1 08/09/2013 LOW [facility] HEMATOLOGY Monocytes # 0.1 K/CMM 0.0 - 0.8 08/09/2013 Normal [facility] HEMATOLOGY Lymphocytes # 0.5 K/CMM 1.0 - 5.5 08/09/2013 LOW [facility] HEMATOLOGY Basophils # 0.0 K/CMM 0.0 - 0.2 08/09/2013 Normal [facility] HEMATOLOGY Monocytes 8.4 % 2.0 - 12.0 08/09/2013 Normal [facility] HEMATOLOGY Lymphocytes 30.7 % 20.0 - 40.0 08/09/2013 Normal [facility] HEMATOLOGY Segs 59.1 % 45.0 - 75.0 08/09/2013 Normal [facility] URINALYSIS UA Urobilinogen <=1.0 mg/dL 0.1 - 1.0 08/08/2013 [facility] URINALYSIS UA WBC 1 /HPF 0 - 5 08/08/2013 Normal [facility] URINALYSIS UA RBC null 0 - 2 08/08/2013 Normal [facility] URINALYSIS UA Glucose Negative mg/dL Negative 08/08/2013 [facility] URINALYSIS UA Sq Epi Few /LPF Few 08/08/2013 [facility] URINALYSIS UA Leuk Est Negative (08/08/2013 12:23:00) Negative 08/08/2013 Normal [facility] URINALYSIS UA Ketones 20 mg/dL Negative 08/08/2013 ABN [facility] URINALYSIS UA Blood Negative (08/08/2013 12:23:00) Negative 08/08/2013 Normal [facility] URINALYSIS UA Nitrite Negative (08/08/2013 12:23:00) Negative 08/08/2013 Normal [facility] URINALYSIS UA Bili Negative *NA* (08/08/2013 12:23:00) Negative 08/08/2013 [facility] URINALYSIS UA Spec Grav 1.014 <=1.030 08/08/2013 Normal [facility] URINALYSIS UA Protein Negative mg/dL Negative 08/08/2013 Normal [facility] URINALYSIS UA pH 8.0 5.0 - 8.0 08/08/2013 Normal [facility] URINALYSIS UA Color Yellow *NA* (08/08/2013 12:23:00) Yellow 08/08/2013 [facility] URINALYSIS UA Turbidity Clear (08/08/2013 12:23:00) Clear 08/08/2013 Normal [facility] CHEMISTRY Globulin 2.5 g/dL 2.0 - 4.0 08/08/2013 Normal [facility] CHEMISTRY A/G Ratio 1.3 0.7 - 1.6 08/08/2013 Normal [facility] CHEMISTRY B/C Ratio 19 6 - 25 08/08/2013 Normal [facility] CHEMISTRY AGAP 17.3 meq/L 10.0 - 20.0 08/08/2013 Normal [facility] CHEMISTRY Potassium Lvl 3.3 meq/L 3.5 - 5.1 08/08/2013 LOW [facility] CHEMISTRY Sodium Lvl 131 meq/L 135 - 145 08/08/2013 LOW [facility] CHEMISTRY Chloride Lvl 93 meq/L 95 - 109 08/08/2013 LOW [facility] CHEMISTRY eGFR 100 mL/min/1.73m2 08/08/2013 5Result Comment: The eGFR is calculated using the [...] from the National Kidney Disease Education Program (NKDEP) which additionally recommends that when the eGFR is used in patients with extremes of body mass index for purposes of drug dosing, the eGFR should be multiplied by the estimated BMI. [facility] CHEMISTRY ASPARTATE TRANSAMINASE 8 unit/L 0 - 37 08/08/2013 Normal [facility] CHEMISTRY Bili Total 0.4 mg/dL 0.2 - 1.3 08/08/2013 Normal [facility] CHEMISTRY Alk Phos 64 unit/L 39 - 136 08/08/2013 Normal [facility] CHEMISTRY Albumin Lvl 3.3 g/dL 3.5 - 5.0 08/08/2013 LOW [facility] CHEMISTRY Total Protein 5.8 g/dL 6.4 - 8.4 08/08/2013 LOW [facility] CHEMISTRY ALANINE AMINOTRANSFERASE 15 unit/L 0 - 65 08/08/2013 Normal [facility] CHEMISTRY Creatinine Lvl 0.7 mg/dL 0.5 - 1.4 08/08/2013 Normal [facility] CHEMISTRY CO2 24 meq/L 24 - 32 08/08/2013 Normal [facility] CHEMISTRY Calcium Lvl 8.3 mg/dL 8.5 - 10.5 08/08/2013 LOW [facility] CHEMISTRY BUN 13 mg/dL 7 - 22 08/08/2013 Normal [facility] CHEMISTRY Glucose Lvl 118 mg/dL 70 - 99 08/08/2013 [place] 7Interpretive Data: Adult reference range values reflect the clinical guidelines of the [place] [employer]. [facility] CHEMISTRY Lipase Lvl 95 unit/L 73 - 393 08/08/2013 Normal [facility] CHEMISTRY Troponin-I null 0.00 - 0.40 08/08/2013 Normal [facility] CHEMISTRY CK MB null 0.5 - 3.6 08/08/2013 Normal [facility] HEMATOLOGY MCHC 33.6 g/dL 32.0 - 36.0 08/08/2013 Normal [facility] HEMATOLOGY MCH 33.9 pg 27.0 - 31.0 08/08/2013 HI [facility] HEMATOLOGY RDW 14.7 % 11.5 - 14.5 08/08/2013 [facility] HEMATOLOGY MPV 8.0 fL 7.4 - 10.4 08/08/2013 Normal [facility] HEMATOLOGY Platelet 191 K/CMM 133 - 450 08/08/2013 Normal [facility] HEMATOLOGY RBC X 10x6 3.37 M/CMM 4.20 - 5.40 08/08/2013 LOW [facility] HEMATOLOGY WBC X 10x3 0.7 K/CMM 3.7 - 10.4 08/08/2013 CRIT 8Result Comment: Critical Result(s) called to Chad Feliz at 08/08/2013 10:36 bysp. Read back OK. [facility] HEMATOLOGY MCV 100.7 fL 81.0 - 99.0 08/08/2013 [facility] HEMATOLOGY Hct 34.0 % 36.0 - 48.0 08/08/2013 LOW [facility] HEMATOLOGY Hgb 11.4 g/dL 12.0 - 16.0 08/08/2013 LOW [facility] HEMATOLOGY Segs 31.9 % 45.0 - 75.0 08/08/2013 LOW [facility] HEMATOLOGY Eosinophils 1.2 % 0.0 - 4.0 08/08/2013 Normal [facility] HEMATOLOGY Monocytes 27.4 % 2.0 - 12.0 08/08/2013 [facility] HEMATOLOGY Lymphocytes 39.4 % 20.0 - 40.0 08/08/2013 Normal [facility] HEMATOLOGY Segs-Bands # 0.2 K/CMM 1.5 - 8.1 08/08/2013 LOW [facility] HEMATOLOGY Basophils 0.1 % 0.0 - 1.0 08/08/2013 Normal [facility] HEMATOLOGY Monocytes # 0.2 K/CMM 0.0 - 0.8 08/08/2013 Normal [facility] HEMATOLOGY Lymphocytes # 0.3 K/CMM 1.0 - 5.5 08/08/2013 LOW [facility] HEMATOLOGY Basophils # 0.0 K/CMM 0.0 - 0.2 08/08/2013 Normal [facility] HEMATOLOGY Eosinophils # 0.0 K/CMM 0.0 - 0.5 08/08/2013 Normal [facility] HEMATOLOGY RBC Morph Normal (08/08/2013 10:22:00) 08/08/2013 Normal [facility] HEMATOLOGY Plt Morph Normal (08/08/2013 10:22:00) 08/08/2013 Normal [facility] Abdomen acute series comp w chest 1 view Abdomen acute series comp w chest 1 view Abdomen series with one view chest, 3 views: FINDINGS: The bowel gas pattern is nonobstructive. No abnormal calcifications or masses are visualized. Extensive postsurgical change, lumbar spine. The one view chest reveals clear lungs and the cardiac silhouette size is within normal limits. Multiple surgical clips are noted in the region of left axilla, with additional surgical clips noted at the hilar regions. Right subclavian Port-A-Cath terminates in the region of the SVC. No free air is noted underneath the hemidiaphragms. SL:13 08/08/2013 - - Read by: Rock Matias Dictated Date/time: 08/08/13 10:53 Electronically Signed by: Rock Matias MD 08/08/13 10:56 FINAL REPORT [facility] Vital Signs Vital Sign Value Date Comments Source Weight 134.5 12/23/2018 Enayet Rahim Height 67 12/23/2018 Enayet Rahim Temperature Oral (F) 97.3 F 12/23/2018 Enay[facility] Rahim Diastolic (mm Hg) 85 12/23/2018 Enay[facility] Rahim Systolic (mm Hg) 109 12/23/2018 Enay[facility] Rahim Weight 141 09/23/2018 Enayet Rahim Height 67 09/23/2018 Enayet Rahim Temperature Oral (F) 97.2 F 09/23/2018 Enayet Rahim Diastolic (mm Hg) 79 09/23/2018 Enayet Rahim Systolic (mm Hg) 109 09/23/2018 Enay[facility] Rahim Weight 147 07/15/2018 Enayet Rahim Height 67 07/15/2018 Enayet Rahim Temperature Oral (F) 97.1 F 07/15/2018 Enayet Rahim Diastolic (mm Hg) 96 07/15/2018 Enayet Rahim Systolic (mm Hg) 111 07/15/2018 Enayet Rahim Weight 147 06/10/2018 Enayet Rahim Height 67 06/10/2018 Enayet Rahim Temperature Oral (F) 96.9 F 06/10/2018 Enayet Rahim Diastolic (mm Hg) 83 06/10/2018 Enayet Rahim Systolic (mm Hg) 108 06/10/2018 Enay[facility] Rahim Weight 143 05/07/2018 Enayet Rahim Height 67 05/07/2018 Enayet Rahim Temperature Oral (F) 97.2 F 05/07/2018 Enayet Rahim Diastolic (mm Hg) 88 05/07/2018 Enayet Rahim Systolic (mm Hg) 114 05/07/2018 Enayet Rahim Weight 146 03/03/2018 Enayet Rahim Height 67 03/03/2018 Enayet Rahim Temperature Oral (F) 98.7 F 03/03/2018 Enayet Rahim Diastolic (mm Hg) 83 03/03/2018 Enayet Rahim Systolic (mm Hg) 117 03/03/2018 Enayet Rahim Weight 144 02/10/2018 Enayet Rahim Height 67 02/10/2018 Enayet Rahim Temperature Oral (F) 97.2 F 02/10/2018 Enayet Rahim Diastolic (mm Hg) 90 02/10/2018 Enayet Rahim Systolic (mm Hg) 133 02/10/2018 Enayet Rahim Weight 144 01/14/2018 Enayet Rahim Height 67 01/14/2018 Enayet Rahim Temperature Oral (F) 96.6 F 01/14/2018 Enayet Rahim Diastolic (mm Hg) 82 01/14/2018 Enayet Rahim Systolic (mm Hg) 113 01/14/2018 Enayet Rahim Weight 151 12/02/2017 Enayet Rahim Height 67 12/02/2017 Enayet Rahim Temperature Oral (F) 98.9 F 12/02/2017 Enayet Rahim Diastolic (mm Hg) 117 12/02/2017 Enayet Rahim Systolic (mm Hg) 133 12/02/2017 Enayet Rahim Weight 156 11/12/2017 Enayet Rahim Height 67 11/12/2017 Enayet Rahim Temperature Oral (F) 98.0 F 11/12/2017 Enayet Rahim Diastolic (mm Hg) 86 11/12/2017 Enayet Rahim Systolic (mm Hg) 108 11/12/2017 Enay[facility] Rahim Weight 144 09/29/2017 Enayet Rahim Height 67 09/29/2017 Enayet Rahim Temperature Oral (F) 96.8 F 09/29/2017 Enayet Rahim Diastolic (mm Hg) 87 09/29/2017 Enayet Rahim Systolic (mm Hg) 112 09/29/2017 Enay[facility] Rahim Weight 137 07/27/2017 Enayet Rahim Height 67 07/27/2017 Enayet Rahim Temperature Oral (F) 97.8 F 07/27/2017 Enayet Rahim Diastolic (mm Hg) 77 07/27/2017 Enayet Rahim Systolic (mm Hg) 102 07/27/2017 Enay[facility] Rahim Weight 138.5 07/14/2017 Enayet Rahim Height 67 07/14/2017 Enayet Rahim Temperature Oral (F) 96.3 F 07/14/2017 Enayet Rahim Diastolic (mm Hg) 96 07/14/2017 Enayet Rahim Systolic (mm Hg) 116 07/14/2017 Enay[facility] Rahim Weight 153 10/21/2016 Enayet Rahim Height 67 10/21/2016 Enayet Rahim Temperature Oral (F) 99.3 F 10/21/2016 Enayet Rahim Diastolic (mm Hg) 103 10/21/2016 Enayet Rahim Systolic (mm Hg) 116 10/21/2016 [facility] Rah[facility] Weight 138 05/06/2016 Enayet Rahim Height 67 05/06/2016 Enayet Rahim Temperature Oral (F) 95.9 F 05/06/2016 Enay[facility] Rah[facility] Diastolic (mm Hg) 82 05/06/2016 Enay[facility] Rahim Systolic (mm Hg) 100 05/06/2016 Enay[facility] Rahim Systolic (mm Hg) 119 01/23/2016 [facility] Diastolic (mm Hg) 80 01/23/2016 [facility] Heart Rate 91 01/23/2016 [facility] Heart Rate 99 01/23/2016 [facility] Temperature Oral (F) 97.7 F 01/23/2016 [facility] Respitory Rate 14 01/23/2016 [facility] Systolic (mm Hg) 90 01/23/2016 [facility] Diastolic (mm Hg) 53 01/23/2016 [facility] Heart Rate 86 01/23/2016 [facility] Respitory Rate 14 01/23/2016 [facility] Systolic (mm Hg) 145 01/23/2016 [facility] Diastolic (mm Hg) 82 01/23/2016 [facility] Temperature Oral (F) 98.4 F 01/23/2016 [facility] Respitory Rate 16 01/23/2016 [facility] Temperature Oral (F) 97.6 F 01/23/2016 [facility] Height 172.72 cm 01/19/2016 [facility] Weight 60.455 01/19/2016 [facility] BMI Calculated 20.27 01/19/2016 [facility] Heart Rate 80 08/11/2014 [facility] Respitory Rate 18 08/11/2014 [facility] Temperature Oral (F) 98.2 F 08/11/2014 [facility] Systolic (mm Hg) 157 08/11/2014 [facility] Diastolic (mm Hg) 101 08/11/2014 [facility] Diastolic (mm Hg) 81 08/11/2014 [facility] Temperature Oral (F) 97.2 F 08/11/2014 [facility] Heart Rate 77 08/11/2014 [facility] Respitory Rate 20 08/11/2014 [facility] Systolic (mm Hg) 124 08/11/2014 [facility] Systolic (mm Hg) 133 08/11/2014 [facility] Diastolic (mm Hg) 89 08/11/2014 [facility] Temperature Oral (F) 98.3 F 08/11/2014 [facility] Heart Rate 87 08/11/2014 [facility] Respitory Rate 18 08/11/2014 [facility] BMI Calculated 17.83 08/09/2014 [facility] Weight 53.182 08/09/2014 [facility] Height 172.72 cm 08/09/2014 [facility] Weight 53.182 08/09/2014 [facility] Height 172.72 cm 08/09/2014 [facility] BMI Calculated 17.83 08/09/2014 [facility] Temperature Oral (F) 97.7 F 05/09/2014 [facility] Systolic (mm Hg) 124 05/09/2014 [facility] Diastolic (mm Hg) 86 05/09/2014 [facility] Respitory Rate 20 05/09/2014 [facility] Heart Rate 69 05/09/2014 [facility] Diastolic (mm Hg) 60 05/09/2014 [facility] Systolic (mm Hg) 95 05/09/2014 [facility] Respitory Rate 17 05/09/2014 [facility] Heart Rate 69 05/09/2014 [facility] [facility] Temperature Oral (F) 97.6 F 05/09/2014 [place] Respitory Rate 17 05/09/2014 [facility] Systolic (mm Hg) 108 05/09/2014 [facility] Diastolic (mm Hg) 66 05/09/2014 [facility] Heart Rate 61 05/09/2014 [facility] Temperature Oral (F) 97.3 F 05/09/2014 [facility] Height 154.94 cm 05/04/2014 [facility] Weight 47.727 05/04/2014 [facility] BMI Calculated 19.88 05/04/2014 [facility] Temperature Oral (F) 97.9 F 10/24/2013 [facility] Heart Rate 88 10/24/2013 [facility] Respitory Rate 16 10/24/2013 [facility] Systolic (mm Hg) 146 10/24/2013 [facility] Diastolic (mm Hg) 91 10/24/2013 [facility] Respitory Rate 20 10/03/2013 [facility] Heart Rate 78 10/03/2013 [facility] Temperature Oral (F) 97.8 F 10/03/2013 [facility] Diastolic (mm Hg) 86 10/03/2013 [facility] Systolic (mm Hg) 129 10/03/2013 [facility] Weight 62.727 09/30/2013 [facility] Height 172.72 cm 09/30/2013 [facility] Height 172.72 cm 09/30/2013 [facility] Weight 62.727 09/30/2013 [facility] Heart Rate 59 09/22/2013 [facility] Respitory Rate 18 09/22/2013 [facility] Temperature Oral (F) 97.7 F 09/22/2013 [facility] Diastolic (mm Hg) 64 09/22/2013 [facility] Systolic (mm Hg) 93 09/22/2013 [facility] Systolic (mm Hg) 90 09/22/2013 [facility] Heart Rate 62 09/22/2013 [facility] Diastolic (mm Hg) 57 09/22/2013 [facility] Temperature Oral (F) 98.0 F 09/22/2013 [facility] Respitory Rate 17 09/22/2013 [facility] Temperature Oral (F) 98.0 F 09/22/2013 [facility] Systolic (mm Hg) 95 09/22/2013 [facility] Heart Rate 72 09/22/2013 [facility] Respitory Rate 16 09/22/2013 [facility] Diastolic (mm Hg) 63 09/22/2013 [facility] Weight 52.727 09/20/2013 [facility] Height 170.18 cm 09/20/2013 [facility] Weight 52.727 09/20/2013 [facility] Height 170.18 cm 09/20/2013 [facility] Diastolic (mm Hg) 65 09/12/2013 [facility] Systolic (mm Hg) 98 09/12/2013 [facility] Temperature Oral (F) 98.0 F 09/12/2013 [facility] Heart Rate 80 09/12/2013 [facility] Respitory Rate 16 09/12/2013 [facility] Diastolic (mm Hg) 83 08/22/2013 [facility] Systolic (mm Hg) 127 08/22/2013 [facility] Respitory Rate 18 08/22/2013 [facility] Heart Rate 77 08/22/2013 [facility] Temperature Oral (F) 97.9 F 08/22/2013 [facility] Height 172.72 cm 08/19/2013 [facility] Weight 62.273 08/19/2013 [facility] Diastolic (mm Hg) 79 08/13/2013 [facility] Systolic (mm Hg) 119 08/13/2013 [facility] Temperature Oral (F) 98.5 F 08/13/2013 [facility] Heart Rate 80 08/13/2013 [facility] Respitory Rate 18 08/13/2013 [facility] Systolic (mm Hg) 130 08/13/2013 [facility] Diastolic (mm Hg) 80 08/13/2013 [facility] Respitory Rate 18 08/13/2013 [facility] Heart Rate 75 08/13/2013 [facility] Temperature Oral (F) 98.1 F 08/13/2013 [facility] Heart Rate 76 08/13/2013 [facility] Temperature Oral (F) 98.3 F 08/13/2013 [facility] Systolic (mm Hg) 105 08/13/2013 [facility] Respitory Rate 18 08/13/2013 [facility] Diastolic (mm Hg) 67 08/13/2013 [facility] Height 170.18 cm 08/08/2013 [facility] Weight 51.364 08/08/2013 [facility] Weight 52.273 08/08/2013 [facility] Height 177.8 cm 08/08/2013 [facility] Encounters Location Location Details Encounter Type Encounter Number Reason For Visit Attending Provider ADM Date DC Date Status Source [facility] Outpatient [id number] BREAST CANCER WALT CHRIS 11/15/2012 11/15/2012 Active [facility] Inpatient [id number] ENAYET RAHIM 08/09/2013 08/13/2013 Active [facility] [place] [id number] 174.9 [facility] [place] 08/22/2013 Active [facility] Inpatient [id number] DEHYDRATION/DIARRHEA ENAYET RAHIM 09/19/2013 09/22/2013 Active [facility] [place] [id number] 174.9 [facility] [place] 09/30/2013 Active [facility] [place] [facility] [id number] Glenn Staton 02/10/2014 02/11/2014 [facility] OBS Observation Patient [id number] Enayet Rahim 05/04/2014 05/04/2014 [facility] Inpatient [id number] Enayet Rahim 05/07/2014 05/09/2014 [facility] Inpatient [id number] Enayet Rahim 08/09/2014 08/11/2014 [facility] Outpatient [id number] Barrera Lamar III 10/12/2014 10/13/2014 [facility] Inpatient [id number] Gurjit Ray 01/19/2016 01/23/2016 [facility] Outpatient [id number] ART SCHOFIELDH 03/04/2016 Active [facility] Outpatient [id number] Art Nataliia 03/13/2016 03/14/2016 [facility] [place] OP Therapy Patients [id number] Rene Call 04/30/2016 05/30/2016 [facility] Johnny Meraz MD, PA Sick Visit/ Dr Ray only [id number] 05/06/2016 05/06/2016 Sneha Meraz MD, PA Sick Visit/ Dr Ray only [id number] 05/06/2016 05/06/2016 Sneha Meraz MD, PA Sick Visit/ Dr Ray only [id number] 05/06/2016 05/06/2016 Sneha Meraz MD, PA Sick Visit [id number] 10/21/2016 10/21/2016 Sneha Meraz MD, PA Sick Visit [id number] 10/21/2016 10/21/2016 Sneha Meraz MD, PA Clinical Advice During Business Hours [id number] 10/24/2016 10/24/2016 Sneha Meraz Outpatient [id number] LOLA YUNIER 04/15/2017 Active [facility] [place] Phone Message [id number] 10/01/2017 10/03/2017 [facility] [place] Phone Message [id number] 10/01/2017 10/03/2017 [facility] Phone Message [id number] 10/28/2017 10/30/2017 [facility] Phone Message [id number] 10/28/2017 10/30/2017 [facility] Outpatient [id number] ART SCHOFIELDH 11/03/2017 Active [facility] [place] Ambulatory Pre-Reg [id number] Art Nataliia 11/03/2017 11/03/2017 [facility] Outpatient [id number] ART NATALIIA 11/17/2017 Active [facility] [place] [id number] 174.9 [facility] [place] Active [facility] Procedures Procedure Code Date Perfomer Comments Source Mastectomy<sup>1</sup> 89218823 Bilateral [facility] [id number] [facility] Mastectomy [id number] [facility] Operation [id number] [facility] Mastectomy<sup>1</sup> 85218322 Bilateral [facility] [place] Operation [id number] [facility] [place] Mastectomy<sup>1</sup> [id number] Bilateral [facility]
--- OUTSIDE RECORDS SUMMARY | 2019-01-12 06:39 | XMS REPORT | CCD ---
Author Author Auto Generated Organization [facility] Address Unknown Phone Unavailable Care Team Providers Care Mononitrotoluene Operator Name Role Phone Marisol Fuller Oscar CP Allergies, Adverse Reactions, Alerts Substance Reaction Status NKDA Active Problem List Condition Effective Dates Status Anxiety Resolved Breast cancer Active Clostridium difficile Resolved Clostridium difficile1 Active Depression Resolved Hypertension Resolved 1Problem added by Discern Expert. Medications Medication Instructions Start Date End Date Status DOXOrubicin + Sodium 70 mg, 35 mL, Route: IV, Drug form: 09/12/2013 09/12/2013 Completed Chloride 0.9% IV 100 INJ, ONCALL, Start date: 09/12/13 mL 9:00:00, Duration: 1 day, Stop date: 09/13/13 8:59:00(Same as: Adriamycin) CHEMOTHERAPY Taxotere + Sodium 100 mg, Route: IV, Drug form: INJ, 09/12/2013 09/12/2013 Completed Chloride 0.9% IV 250 ONCALL, Start date: 09/12/13 mL 9:00:00, Duration: 1 day, Stop date: 09/13/13 8:59:00(Same as: Taxotere) Use non-PVC bag and tubing set for administration. CHEMOTHERAPY. cyclophosphamide + 700 mg, Route: IV, Drug form: 08/22/2013 09/12/2013 Completed Sodium Chloride 0.9% PDR/INJ, ONCALL, Start date: IV 100 mL 08/22/13 10:00:00, Duration: 1 day, Stop date: 08/23/13 9:59:00CHEMOTHERAPY Aloxi 0.25 mg, 5 mL, Route: IVP, Drug 08/22/2013 09/12/2013 Completed form: INJ, PRN, Start date: 08/22/13 10:00:00, Duration: 30 day, Stop date: 09/21/13 8:59:00(Same as: Aloxi) Sodium Chloride 0.9% IV, 30 ml/hr, PRN, Start date: 08/22/2013 09/12/2013 Completed IV 08/22/13 10:00:00, Duration: 30, 250 ml cyclophosphamide + 700 mg, Route: IV, Drug form: 09/12/2013 09/21/2013 Discontinued Sodium Chloride 0.9% PDR/INJ, ONCALL, Start date: IV 100 mL 09/12/13 9:00:00, Duration: 1 day, Stop date: 09/13/13 8:59:00CHEMOTHERAPY Taxotere + Sodium 100 mg, Route: IV, Drug form: INJ, 08/22/2013 09/21/2013 Discontinued Chloride 0.9% IV 250 ONCALL, Start date: 08/22/13 mL 18:00:00, Duration: 1 day, Stop date: 08/23/13 17:59:00(Same as: Taxotere) Use non-PVC bag and tubing set for administration. CHEMOTHERAPY. DOXOrubicin + Sodium 70 mg, 35 mL, Route: IV, Drug form: 08/22/2013 09/21/2013 Discontinued Chloride 0.9% IV 100 INJ, ONCALL, Start date: 08/22/13 mL 10:00:00, Duration: 1 day, Stop date: 08/23/13 9:59:00(Same as: Adriamycin) CHEMOTHERAPY heparin flush 500 unit, 5 mL, Route: IV, Drug 08/22/2013 09/12/2013 Completed form: SOLN, PRN, Start date: 08/22/13 10:00:00, Duration: 30 day, Stop date: 09/21/13 8:59:00(Same as: Heparin Lock Flush) Vital Signs Most recent to oldest [Reference Range]: 1 2 Height 172.72 cm (08/19/2013 12:49:00) Temperature Oral [96.4-99.1 DegF] 98.0 DegF (09/12/2013 10:00:00) 97.9 DegF (08/22/2013 15:14:00) Systolic Blood Pressure [90-140 mmHg] 98 mmHg (09/12/2013 10:00:00) 127 mmHg (08/22/2013 15:14:00) Diastolic Blood Pressure [60-90 mmHg] 65 mmHg (09/12/2013 10:00:00) 83 mmHg (08/22/2013 15:14:00) Respiratory Rate [14-20 BRMIN] 16 BRMIN (09/12/2013 10:00:00) 18 BRMIN (08/22/2013 15:14:00) Peripheral Pulse Rate [60-100 bpm] 80 bpm (09/12/2013 10:00:00) 77 bpm (08/22/2013 15:14:00) Weight 62.273 kg (08/19/2013 12:49:00)
--- OUTSIDE RECORDS SUMMARY | 2019-01-12 06:39 | XMS REPORT | CCD ---
Author Author Auto Generated Organization [facility] Address Unknown Phone Unavailable Care Team Providers Care Visual Journalist Name Role Phone Sneha Meraz CP Allergies, Adverse Reactions, Alerts Substance Reaction Status NKDA Active Problem List Condition Effective Dates Status Breast cancer Active Clostridium difficile1 Active 1Problem added by Discern Expert. Medications Medication Instructions Start Date End Date Status nitroglycerin 0.4 mg 0.4 mg, 1 tab, Route: SL, Drug 08/08/2013 08/13/2013 Discontinued sublingual tablet form: TAB, Q5Min, PRN Chest Pain, Start date: 08/08/13 16:50:00, Duration: 30 day, Stop date: 09/07/13 15:49:00(Same as:Nitroquick, Nitrostat)"Do Not Crush" Sublingual tablet atropine 0.5 mg, 5 mL, Route: IVP, Drug 08/08/2013 08/13/2013 Discontinued form: INJ, PRN, PRN Bradycardia, Start date: 08/08/13 16:50:00, Duration: 30 day, Stop date: 09/07/13 15:49:00 Lexapro 10 mg oral 10 mg, 1 tab, PO, QAM, 30 tab, 08/08/2013 Ordered tablet Substitution Allowed, TAB MS Contin 15 mg, 1 tab, Route: PO, Drug form: 08/11/2013 08/13/2013 Discontinued ERTAB, Q8H, Dosing Weight 51.364, kg, Start date: 08/11/13 16:00:00, Duration: 30 day, Stop date: 09/10/13 8:00:00Do not crush (Same as:Oramorph SR, MS Contin) simethicone 80 mg, 1 tab, Route: CHEW, Drug 08/08/2013 08/13/2013 Discontinued form: CHEWTAB, QID, Dosing Weight 51.364, kg, PRN Gas, Start date: 08/08/13 20:07:00, Duration: 30 day, Stop date: 09/07/13 20:06:00(Same as: Mylicon) METRONIDazole 500 mg 500 mg, 1 tab, PO, ABXQ8H, 30 tab, 08/13/2013 Ordered oral tablet Substitution Allowed, TAB Saline Flush 0.9% 5 mL, Route: IVP, Drug Form: INJ, 08/08/2013 08/08/2013 Discontinued Dosing Weight 52.273, kg, PRN, PRN Line Flush, Start date: 08/08/13 10:21:00, Duration: 24 hr, Stop date: 08/09/13 10:20:00(Same as: BD Posiflush) ondansetron 4 mg, Route: IVP, ONCE, Dosing 08/08/2013 08/08/2013 Completed Weight 52.273, kg, Priority: STAT, Start date: 08/08/13 10:21:00, Stop date: 08/08/13 10:21:00 pantoprazole 40 mg, Route: IVP, ONCE, Dosing 08/08/2013 08/08/2013 Completed Weight 52.273, kg, For IV push reconstitute with 10 ml 0.9% sodium chloride and push over at least 3 minutes, Priority: STAT, Start date: 08/08/13 10:21:00, Stop date: 08/08/13 10:21:00 morphine Sulfate 4 mg, Route: IVP, ONCE, Dosing 08/08/2013 08/08/2013 Completed Weight 52.273, kg, Priority: STAT, Start date: 08/08/13 10:21:00, Stop date: 08/08/13 10:21:00 morphine Sulfate 5 mg, 2.5 mL, Route: IV, Drug form: 08/08/2013 08/13/2013 Discontinued INJ, Q4H, PRN Pain Score 1-5, Start date: 08/08/13 16:13:00, Duration: 30 day, Stop date: 09/07/13 16:12:00(Same as:MORPhine Sulfate) Valium 5 mg oral 5 mg, 1 tab, PO, Bedtime, PRN, 08/08/2013 Ordered tablet Anxiety, Substitution Allowed, TAB Neupogen 480 microgram, 1.6 mL, Route: 08/08/2013 08/08/2013 Completed SUB-Q, Drug form: INJ, ONCE, Start date: 08/08/13 17:00:00, Stop date: 08/08/13 17:00:00(Same as: Neupogen) [place] 10/325 oral 1 tab, PO, TID, PRN, 24 tab, as 08/08/2013 Ordered tablet needed for pain, Substitution Allowed, Maintenance hydrochlorothiazide- 1 tab, PO, Daily, 30 tab, 08/08/2013 Ordered lisinopril 12.5 Substitution Allowed, Maintenance, mg-10 mg oral tablet TAB Neupogen 480 microgram, 1.6 mL, Route: 08/09/2013 08/09/2013 Completed SUB-Q, Drug form: INJ, ONCE, Start date: 08/09/13 18:30:00, Stop date: 08/09/13 18:30:00(Same as: Neupogen) Pepcid 20 mg, 1 tab, Route: PO, Drug form: 08/10/2013 08/13/2013 Discontinued TAB, Q12H, Start date: 08/10/13 21:00:00, Duration: 30 day, Stop date: 09/09/13 9:00:00(Same as: Pepcid) Pepcid 20 mg, 2 mL, Route: IVP, Drug form: 08/08/2013 08/10/2013 Discontinued INJ, Q12H, Start date: 08/08/13 21:00:00, Duration: 30 day, Stop date: 09/07/13 9:00:00(Same as: Pepcid)Can be dilute in 5-10cc NS IVP: Slow IV push over at least 2 minutes. MS Contin 15 mg, 1 tab, Route: PO, Drug form: 08/10/2013 08/11/2013 Discontinued ERTAB, Q12H, Dosing Weight 51.364, kg, Start date: 08/10/13 21:00:00, Duration: 30 day, Stop date: 09/09/13 9:00:00Do not crush (Same as:Oramorph SR, MS Contin) Sodium Chloride 0.9% 1,000 mL, Rate: 1,000 ml/hr, Infuse 08/08/2013 08/08/2013 Completed (Bolus) IV 1000 mL over: 1 hr, Route: IV, Dosing Weight 52.273 kg, Total Volume: 1,000, Priority: STAT, Start date: 08/08/13 13:44:00, Duration: 1 doses or times, Stop date: 08/08/13 14:43:00, Bolus Dose Bolus Dose Zofran 4 mg, 2 mL, Route: IVP, Drug form: 08/08/2013 08/13/2013 Discontinued INJ, Q6H, PRN Nausea & Vomiting, Start date: 08/08/13 16:09:00, Duration: 30 day, Stop date: 09/07/13 16:08:00(Same as: Zofran) potassium chloride 20 mEq, 100 mL, Route: IVPB, Drug 08/08/2013 08/08/2013 Completed form: INJ, ONCE, Dosing Weight 51.364, kg, Total dose=20mEq, Start date: 08/08/13 17:27:00, Duration: 1 doses or times, Stop date: 08/08/13 17:27:00, For K=3.5 - 3.9 mEq/L For K=3.5 - 3.9 mEq/L(Same as: KCL) Infuse no faster than 10 mEq/hr if given peripherally. nystatin-triamcinolo Route: TOP, BID, Drug form: CRM, 08/09/2013 08/13/2013 Discontinued ne topical PRN Irritation, Start date: 08/09/13 17:23:00, Duration: 30 day, Stop date: 09/08/13 17:22:00(nystatin-triamcinolone 428936 units/g-0.1% top CRM 60 gm ) D5W 1/2NS + KCL 1,000 mL, Rate: 150 ml/hr, Infuse 08/08/2013 08/13/2013 Discontinued 10mEq/L 1000ml over: 6.7 hr, Route: IV, Dosing (Premix) 1000 mL Weight 52.273 kg, Total Volume: 1,000, Start date: 08/08/13 16:15:00, Duration: 30 day, Stop date: 09/07/13 16:14:00PREMIX IV - Do Not Alter Lexapro 10 mg, 1 tab, Route: PO, Drug form: 08/09/2013 08/13/2013 Discontinued TAB, QAM, Dosing Weight 51.364, kg, Start date: 08/09/13 9:00:00, Duration: 30 day, Stop date: 09/07/13 9:00:00(Same as: Lexapro) Saline Flush 0.9% 5 ml, Route: IVP, Drug Form: INJ, 08/08/2013 08/13/2013 Discontinued Dosing Weight 52.273, kg, PRN, PRN Line Flush, Start date: 08/08/13 16:17:00, Duration: 30 day, Stop date: 09/07/13 15:16:00(Same as: BD Posiflush) Sodium Chloride 0.9% 1,000 mL, Rate: 125 ml/hr, Infuse 08/08/2013 08/08/2013 Discontinued IV 1000 mL over: 8 hr, Route: IV, Dosing Weight 52.273 kg, Total Volume: 1,000, Start date: 08/08/13 16:17:00, Duration: 30 day, Stop date: 09/07/13 16:16:00 docusate 100 mg, 1 cap, Route: PO, Drug 08/08/2013 08/13/2013 Discontinued form: CAP, BID, Dosing Weight 52.273, kg, PRN Constipation, Start date: 08/08/13 16:17:00, Duration: 30 day, Stop date: 09/07/13 16:16:00(Same as: Colace) (Do Not Crush) ondansetron 4 mg, 2 mL, Route: IVP, Drug form: 08/08/2013 08/13/2013 Discontinued INJ, Q8H, Dosing Weight 52.273, kg, PRN Nausea & Vomiting, Start date: 08/08/13 16:17:00, Duration: 30 day, Stop date: 09/07/13 16:16:00(Same as: Zofran) morphine Sulfate 2 mg, 1 mL, Route: IVP, Drug form: 08/08/2013 08/13/2013 Discontinued INJ, Q3H, Dosing Weight 52.273, kg, PRN Pain Score 4-6, Start date: 08/08/13 16:17:00, Duration: 30 day, Stop date: 09/07/13 16:16:00(Same as:MORPhine Sulfate) acetaminophen 650 mg, 20.3 mL, Route: PO, Drug 08/08/2013 08/13/2013 Discontinued form: LIQ, Q4H, Dosing Weight 52.273, kg, PRN Pain 1-3/Temp > 100.4 F, Start date: 08/08/13 16:17:00, Duration: 30 day, Stop date: 09/07/13 16:16:00Max ghtdxmvlxpapw=9923mr/day (4 gm/day). (Same as: Tylenol) Valium 5 mg, 1 tab, Route: PO, Drug form: 08/08/2013 08/13/2013 Discontinued TAB, Bedtime, Dosing Weight 51.364, kg, PRN as needed for anxiety, Start date: 08/08/13 17:26:00, Duration: 30 day, Stop date: 09/07/13 17:25:00(Same as: Valium) [place] 10/325 oral 1 tab, Route: PO, Drug Form: TAB, 08/08/2013 08/13/2013 Discontinued tablet Dosing Weight 51.364, kg, TID, PRN Pain Score 1-3, Start date: 08/08/13 17:26:00, Duration: 30 day, Stop date: 09/07/13 17:25:00Do not exceed 4gm/day of acetaminophen. (Same as: [place] 325/10) Bactroban 1 appl, Route: TOP, BID, Drug form: 08/08/2013 08/13/2013 Discontinued OINT, Start date: 08/08/13 17:00:00, Duration: 30 day, Stop date: 09/07/13 9:00:00 Questran 4 gm, 1 pkt, Route: PO, Drug form: 08/09/2013 08/13/2013 Discontinued PDR/REC, BID, Dosing Weight 51.364, kg, Start date: 08/09/13 9:00:00, Duration: 30 day, Stop date: 09/07/13 17:00:00(Same As: Questran) Flagyl 500 mg, 1 tab, Route: PO, Drug 08/11/2013 08/13/2013 Discontinued form: TAB, ABXQ8H, Dosing Weight 51.364, kg, Start date: 08/11/13 15:00:00, Duration: 30 day, Stop date: 09/10/13 7:00:00(Same as: Flagyl) Take with food/ avoid alcohol Vital Signs Most recent to oldest [Reference Range]: 1 2 3 Height 170.18 cm (08/08/2013 16:21:00) 177.8 cm (08/08/2013 09:52:00) Temperature Oral [96.4-99.1 DegF] 98.5 DegF (08/13/2013 07:20:00) 98.1 DegF (08/13/2013 04:34:00) 98.3 DegF (08/12/2013 23:29:00) Systolic Blood Pressure [90-140 mmHg] 119 mmHg (08/13/2013 07:20:00) 130 mmHg (08/13/2013 04:34:00) 105 mmHg (08/12/2013 23:29:00) Diastolic Blood Pressure [60-90 mmHg] 79 mmHg (08/13/2013 07:20:00) 80 mmHg (08/13/2013 04:34:00) 67 mmHg (08/12/2013 23:29:00) Respiratory Rate [14-20 BRMIN] 18 BRMIN (08/13/2013 07:20:00) 18 BRMIN (08/13/2013 04:34:00) 18 BRMIN (08/12/2013 23:29:00) Peripheral Pulse Rate [60-100 bpm] 80 bpm (08/13/2013 07:20:00) 75 bpm (08/13/2013 04:34:00) 76 bpm (08/12/2013 23:29:00) Weight 51.364 kg (08/08/2013 16:21:00) 52.273 kg (08/08/2013 09:52:00) Results INFECTIOUS DISEASES Most recent to oldest [Reference Range]: 1 2 3 C difficile DNA [Negative] Positive 1, 2 *ABN* (08/10/2013 10:55:00) 1Interpretive Data: [employer] Clostridium difficile assay utilizes loop-mediated isothermal DNA amplification (LAMP) technology to detect a 204 bp region of the tcdA gene within the PaLoc gene segment present in all known toxigenic C. difficile strains. The assay utilizes FDA cleared IVD reagents. Performance characteristics have be en verified by the [facility] within the [facility]. The [facility] is authorized under the Clinical Labo ratory Improvement Amendment of 1988 (CLIA-88) to perform high complexity testin g. 2Result Comment: "Significant Findings called to Grace Norman at 1233 08/11/13 by [email or web address]." URINALYSIS Most recent to oldest [Reference Range]: 1 2 3 UA Turbidity [Clear] Clear (08/08/2013 12:23:00) UA Color [Yellow] Yellow *NA* (08/08/2013 12:23:00) UA pH [5.0-8.0] 8.0 (08/08/2013 12:23:00) UA Spec Grav [<=1.030] 1.014 (08/08/2013 12:23:00) UA Glucose [Negative mg/dL] Negative mg/dL *NA* (08/08/2013 12:23:00) UA Blood [Negative] Negative (08/08/2013 12:23:00) UA Ketones [Negative mg/dL] 20 mg/dL *ABN* (08/08/2013 12:23:00) UA Protein [Negative mg/dL] Negative mg/dL (08/08/2013 12:23:00) UA Urobilinogen [0.1-1.0 mg/dL] <=1.0 mg/dL *NA* (08/08/2013 12:23:00) UA Bili [Negative] Negative *NA* (08/08/2013 12:23:00) UA Leuk Est [Negative] Negative (08/08/2013 12:23:00) UA Nitrite [Negative] Negative (08/08/2013 12:23:00) UA WBC [0-5 /HPF] 1 /HPF (08/08/2013 12:23:00) UA RBC [0-2 /HPF] <1 /HPF (08/08/2013 12:23:00) UA Sq Epi [Few /LPF] Few /LPF *NA* (08/08/2013 12:23:00) STOOL TESTS Most recent to oldest [Reference Range]: 1 2 3 Occult Bld Stl [Negative] Negative (08/10/2013 10:55:00) Fecal Leukocyte Moderate 3 (08/10/2013 10:55:00) 3Interpretive Data: A Value of None Seen, Rare, or Few is Normal. CHEMISTRY Most recent to oldest [Reference Range]: 1 2 3 Sodium Lvl [135-145 mEq/L] 132 mEq/L *LOW* (08/09/2013 04:05:00) 131 mEq/L *LOW* (08/08/2013 10:22:00) Potassium Lvl [3.5-5.1 mEq/L] 3.8 mEq/L (08/09/2013 04:05:00) 3.3 mEq/L *LOW* (08/08/2013 10:22:00) Chloride Lvl [95-109 mEq/L] 100 mEq/L (08/09/2013 04:05:00) 93 mEq/L *LOW* (08/08/2013 10:22:00) CO2 [24-32 mEq/L] 23 mEq/L *LOW* (08/09/2013 04:05:00) 24 mEq/L (08/08/2013 10:22:00) AGAP [10.0-20.0 mEq/L] 12.8 mEq/L (08/09/2013 04:05:00) 17.3 mEq/L (08/08/2013 10:22:00) Creatinine Lvl [0.5-1.4 mg/dL] 0.5 mg/dL (08/09/2013 04:05:00) 0.7 mg/dL (08/08/2013 10:22:00) eGFR 112 mL/min/1.73m2 4 *NA* (08/09/2013 04:05:00) 100 mL/min/1.73m2 5 *NA* (08/08/2013 10:22:00) BUN [7-22 mg/dL] 6 mg/dL *LOW* (08/09/2013 04:05:00) 13 mg/dL (08/08/2013 10:22:00) B/C Ratio [6-25] 12 (08/09/2013 04:05:00) 19 (08/08/2013 10:22:00) Glucose Lvl [70-99 mg/dL] 104 mg/dL 6 *HI* (08/09/2013 04:05:00) 118 mg/dL 7 *HI* (08/08/2013 10:22:00) Total Protein [6.4-8.4 g/dL] 4.8 g/dL *LOW* (08/09/2013 04:05:00) 5.8 g/dL *LOW* (08/08/2013 10:22:00) Albumin Lvl [3.5-5.0 g/dL] 2.7 g/dL *LOW* (08/09/2013 04:05:00) 3.3 g/dL *LOW* (08/08/2013 10:22:00) Globulin [2.0-4.0 g/dL] 2.1 g/dL (08/09/2013 04:05:00) 2.5 g/dL (08/08/2013 10:22:00) A/G Ratio [0.7-1.6] 1.3 (08/09/2013 04:05:00) 1.3 (08/08/2013 10:22:00) Calcium Lvl [8.5-10.5 mg/dL] 7.7 mg/dL *LOW* (08/09/2013 04:05:00) 8.3 mg/dL *LOW* (08/08/2013 10:22:00) ALT [0-65 unit/L] 11 unit/L (08/09/2013 04:05:00) 15 unit/L (08/08/2013 10:22:00) AST [0-37 unit/L] 6 unit/L (08/09/2013 04:05:00) 8 unit/L (08/08/2013 10:22:00) Alk Phos [39-136 unit/L] 54 unit/L (08/09/2013 04:05:00) 64 unit/L (08/08/2013 10:22:00) Bili Total [0.2-1.3 mg/dL] 0.2 mg/dL (08/09/2013 04:05:00) 0.4 mg/dL (08/08/2013 10:22:00) Lipase Lvl [73-393 unit/L] 95 unit/L (08/08/2013 10:22:00) CK MB [0.5-3.6 ng/mL] <0.5 ng/mL (08/08/2013 10:22:00) Troponin-I [0.00-0.40 ng/mL] <0.02 ng/mL (08/08/2013 10:22:00) 4Result Comment: The eGFR is calculated using [...] be mul tiplied by the estimated BMI. 5Result Comment: The eGFR is calculated using [...] be mul tiplied by the estimated BMI. 6Interpretive Data: Adult reference range values reflect the clinical guidelines of the [place] [employer]. 7Interpretive Data: Adult reference range values reflect the clinical guidelines of the [place] [employer]. HEMATOLOGY Most recent to oldest [Reference Range]: 1 2 3 WBC [3.7-10.4 K/CMM] 8.1 K/CMM (08/10/2013 04:11:00) 1.7 K/CMM *LOW* (08/09/2013 04:05:00) 0.7 K/CMM 8 *CRIT* (08/08/2013 10:22:00) RBC [4.20-5.40 M/CMM] 2.99 M/CMM *LOW* (08/10/2013 04:11:00) 3.03 M/CMM *LOW* (08/09/2013 04:05:00) 3.37 M/CMM *LOW* (08/08/2013 10:22:00) Hgb [12.0-16.0 g/dL] 10.1 g/dL *LOW* (08/10/2013 04:11:00) 10.3 g/dL *LOW* (08/09/2013 04:05:00) 11.4 g/dL *LOW* (08/08/2013 10:22:00) Hct [36.0-48.0 %] 30.8 % *LOW* (08/10/2013 04:11:00) 30.8 % *LOW* (08/09/2013 04:05:00) 34.0 % *LOW* (08/08/2013 10:22:00) MCV [81.0-99.0 fL] 103.0 fL *HI* (08/10/2013 04:11:00) 101.5 fL *HI* (08/09/2013 04:05:00) 100.7 fL *HI* (08/08/2013 10:22:00) MCH [27.0-31.0 pg] 33.8 pg *HI* (08/10/2013 04:11:00) 34.1 pg *HI* (08/09/2013 04:05:00) 33.9 pg *HI* (08/08/2013 10:22:00) MCHC [32.0-36.0 g/dL] 32.8 g/dL (08/10/2013 04:11:00) 33.6 g/dL (08/09/2013 04:05:00) 33.6 g/dL (08/08/2013 10:22:00) RDW [11.5-14.5 %] 14.7 % *HI* (08/10/2013 04:11:00) 15.0 % *HI* (08/09/2013 04:05:00) 14.7 % *HI* (08/08/2013 10:22:00) Platelet [133-450 K/CMM] 175 K/CMM (08/10/2013 04:11:00) 166 K/CMM (08/09/2013 04:05:00) 191 K/CMM (08/08/2013 10:22:00) MPV [7.4-10.4 fL] 8.0 fL (08/10/2013 04:11:00) 8.1 fL (08/09/2013 04:05:00) 8.0 fL (08/08/2013 10:22:00) Segs [45.0-75.0 %] 84.1 % *HI* (08/10/2013 04:11:00) 59.1 % (08/09/2013 04:05:00) 31.9 % *LOW* (08/08/2013 10:22:00) Lymphocytes [20.0-40.0 %] 13.9 % *LOW* (08/10/2013 04:11:00) 30.7 % (08/09/2013 04:05:00) 39.4 % (08/08/2013 10:22:00) Monocytes [2.0-12.0 %] 1.5 % *LOW* (08/10/2013 04:11:00) 8.4 % (08/09/2013 04:05:00) 27.4 % *HI* (08/08/2013 10:22:00) Eosinophils [0.0-4.0 %] 0.3 % (08/10/2013 04:11:00) 1.4 % (08/09/2013 04:05:00) 1.2 % (08/08/2013 10:22:00) Basophils [0.0-1.0 %] 0.2 % (08/10/2013 04:11:00) 0.4 % (08/09/2013 04:05:00) 0.1 % (08/08/2013 10:22:00) Segs-Bands # [1.5-8.1 K/CMM] 6.8 K/CMM (08/10/2013 04:11:00) 1.0 K/CMM *LOW* (08/09/2013 04:05:00) 0.2 K/CMM *LOW* (08/08/2013 10:22:00) Lymphocytes # [1.0-5.5 K/CMM] 1.1 K/CMM (08/10/2013 04:11:00) 0.5 K/CMM *LOW* (08/09/2013 04:05:00) 0.3 K/CMM *LOW* (08/08/2013 10:22:00) Monocytes # [0.0-0.8 K/CMM] 0.1 K/CMM (08/10/2013 04:11:00) 0.1 K/CMM (08/09/2013 04:05:00) 0.2 K/CMM (08/08/2013 10:22:00) Eosinophils # [0.0-0.5 K/CMM] 0.0 K/CMM (08/10/2013 04:11:00) 0.0 K/CMM (08/09/2013 04:05:00) 0.0 K/CMM (08/08/2013 10:22:00) Basophils # [0.0-0.2 K/CMM] 0.0 K/CMM (08/10/2013 04:11:00) 0.0 K/CMM (08/09/2013 04:05:00) 0.0 K/CMM (08/08/2013 10:22:00) RBC Morph Normal (08/08/2013 10:22:00) Plt Morph Normal (08/08/2013 10:22:00) 8Result Comment: Critical Result(s) called to Chad Feliz at 08/08/2013 10:36 bysp. Read back OK. Microbiology Reports PROCEDURE:Culture: Stool STATUS: Auth (Verified) BODY SITE: COLLECTED DATE/TIME: 08/10/2013 10:55:00 SOURCE: Stool FREE TEXT SOURCE: FINAL REPORTS Final Report No Salmonella, Shigella, Or Campylobacter Isolated Normal Enteric Rachel Isolated PRELIMINARY REPORTS Preliminary Report Normal Enteric Rachel Isolated Preliminary Report Normal Enteric Rachel Isolated PROCEDURE:Culture: Urine STATUS: Auth (Verified) BODY SITE: COLLECTED DATE/TIME: 08/08/2013 12:23:00 SOURCE: Urine, Clean Catch FREE TEXT SOURCE: FINAL REPORTS Final Report <10,000 CFU/mL Gram Negative Rods PRELIMINARY REPORTS Preliminary Report No Growth; Holding Procedures Procedures Date Related Diagnosis Mastectomy Operation
--- OUTSIDE RECORDS SUMMARY | 2019-01-12 06:39 | XMS REPORT | CCD ---
Author Author Auto Generated Organization [facility] Address Unknown Phone Unavailable Care Team Providers Care Chlorinator Operator Name Role Phone Sneha Meraz CP Allergies, Adverse Reactions, Alerts Substance Reaction Status NKDA Active Problem List Condition Effective Dates Status Anxiety Resolved Breast cancer Active Clostridium difficile Resolved Clostridium difficile1 Active Depression Resolved Hypertension Resolved 1Problem added by Discern Expert. Medications Medication Instructions Start Date End Date Status Al hydroxide/Mg 30 mL, Route: PO, Drug Form: SUSP, 09/19/2013 09/22/2013 Discontinued hydroxide/simethicon Dosing Weight 52.727, kg, QID, PRN e Indigestion, Start date: 09/19/13 19:36:00, Duration: 30 day, Stop date: 10/19/13 19:35:00(aluminum hydroxide-magnesium hyd-simethicone [id number]/5ml 30 ml ud VAN) acyclovir 400 mg, 2 cap, Route: PO, Drug 09/21/2013 09/22/2013 Discontinued form: CAP, [id number], Dosing Weight 52.727, kg, Start date: 09/21/13 22:00:00, Duration: 30 day, Stop date: 10/21/13 10:00:00(Same as: Zovirax) hydrochlorothiazide- 1 tab, PO, Daily, 30 tab, 09/19/2013 09/22/2013 Discontinued lisinopril 12.5 Substitution Allowed, Maintenance, mg-20 mg oral tablet TAB temazepam 30 mg, 2 cap, Route: PO, Drug form: 09/19/2013 09/22/2013 Discontinued CAP, Bedtime, Dosing Weight 62.273, kg, PRN Sleep, Start date: 09/19/13 14:09:00, Duration: 30 day, Stop date: 10/19/13 14:08:00(Same As: Restoril) Lomotil oral tablet 1 tab, Route: PO, Drug Form: TAB, 09/19/2013 09/22/2013 Discontinued Dosing Weight 62.273, kg, QID, PRN Loose Stools, Start date: 09/19/13 14:08:00, Duration: 30 day, Stop date: 10/19/13 14:07:00(Same As: Lomotil) MAX Adult dose=8 tabs/day Saline Flush 0.9% 5 ml, Route: IVP, Drug Form: INJ, 09/19/2013 09/22/2013 Discontinued Dosing Weight 62.273, kg, PRN, PRN Line Flush, Start date: 09/19/13 14:02:00, Duration: 30 day, Stop date: 10/19/13 14:01:00(Same as: BD Posiflush) D5W 1/2NS + KCL 1,000 mL, Rate: 150 ml/hr, Infuse 09/19/2013 09/22/2013 Discontinued 20mEq/L 1000ml over: 6.7 hr, Route: IV, Dosing (Premix) 1,000 mL Weight 62.273 kg, Total Volume: 1,000, Start date: 09/19/13 14:02:00, Stop date: 10/19/13 14:01:00PREMIX IV - Do Not Alter docusate 100 mg, 1 cap, Route: PO, Drug 09/19/2013 09/22/2013 Discontinued form: CAP, BID, Dosing Weight 62.273, kg, PRN as needed for constipation, Start date: 09/19/13 14:02:00, Duration: 30 day, Stop date: 10/19/13 14:01:00(Same as: Colace) (Do Not Crush) acetaminophen 650 mg, 2 tab, Route: PO, Drug 09/19/2013 09/22/2013 Discontinued form: TAB, Q4H, Dosing Weight 62.273, kg, PRN Pain 1-3/Temp > 100.4 F, Start date: 09/19/13 14:02:00, Duration: 30 day, Stop date: 10/19/13 14:01:00Do not exceed 4 gm/day. (Same as: Tylenol) Benadryl Children's 25 mg, 10 mL, PO, QID, PRN, as 09/19/2013 Ordered Allergy 12.5 mg/5 mL needed for sore throat, oral liquid Substitution Allowed Maalox Max oral 5 ml, PO, QID, PRN, 200 ml, for 09/19/2013 Ordered suspension indigestion, Substitution Allowed, Maintenance, SUSP magic mouth wash Route: PO, Dosing Weight 52.727, 09/20/2013 09/20/2013 Deleted kg, ABXQ4H, PRN Mouth Pain, Start date: 09/20/13 20:35:00, Duration: 30 day, Stop date: 10/20/13 20:34:00 Zofran 4 mg, 1 tab, Route: PO, Drug form: 09/19/2013 09/22/2013 Discontinued TAB, Q6H, Dosing Weight 52.727, kg, PRN as needed for nausea/vomiting, Start date: 09/19/13 19:35:00, Duration: 30 day, Stop date: 10/19/13 19:34:00(Same as: Zofran) maalox/benadryl/lido 5 mL, Route: PO, Drug Form: LIQ, 09/20/2013 09/22/2013 Discontinued luis 1:1:1 120ml Q4H, PRN Mouth Pain, Start date: 09/20/13 21:04:00, Stop date: 10/20/13 21:03:00Maalox 40ml + Benadryl 40ml + lidocaine viscous 40mlShake well before use. Lexapro 10 mg, 1 tab, Route: PO, Drug form: 09/20/2013 09/22/2013 Discontinued TAB, QAM, Dosing Weight 52.727, kg, Start date: 09/20/13 9:00:00, Duration: 30 day, Stop date: 10/19/13 9:00:00(Same as: Lexapro) diphenhydrAMINE 25 mg, 10 mL, Route: PO, Drug form: 09/19/2013 09/22/2013 Discontinued LIQ, QID, Dosing Weight 52.727, kg, PRN Other -See Comment, Start date: 09/19/13 19:35:00, Duration: 30 day, Stop date: 10/19/13 19:34:00, as needed for sore throat(Same as: Benadryl) Valium 5 mg, 0.5 tab, Route: PO, Drug 09/19/2013 09/22/2013 Discontinued form: TAB, Q6H, Dosing Weight 52.727, kg, PRN as needed for anxiety, Start date: 09/19/13 19:34:00, Duration: 30 day, Stop date: 10/19/13 19:33:00(Same as: Valium) [place] 10/325 oral 1 tab, Route: PO, Drug Form: TAB, 09/19/2013 09/22/2013 Discontinued tablet Dosing Weight 52.727, kg, Q6H, PRN Pain Score 4-6, Start date: 09/19/13 19:34:00, Duration: 30 day, Stop date: 10/19/13 19:33:00Do not exceed 4gm/day of acetaminophen. (Same as: [place] 325/10) NS (Bolus) IV 250 mL 250 mL, Rate: 250 ml/hr, Infuse 09/20/2013 09/20/2013 Completed over: 1 hr, Route: IV, Dosing Weight 52.727 kg, Total Volume: 250, Priority: STAT, Start date: 09/20/13 20:31:00, Duration: 1 doses or times, Stop date: 09/20/13 21:30:00, Bolus Dose Bolus Dose Flagyl 250 mg oral 250 mg, 1 tab, PO, TID, 30 tab, 09/19/2013 09/22/2013 Discontinued tablet Substitution Allowed, TAB Valium 10 mg, 2 tab, Route: PO, Drug form: 09/19/2013 09/22/2013 Discontinued TAB, Q6H, PRN Anxiety, Start date: 09/19/13 19:42:00, Duration: 30 day, Stop date: 10/19/13 19:41:00(Same as: Valium) Zofran 4 mg oral 4 mg, 1 tab, PO, Q6H, PRN, 10 tab, 09/19/2013 Ordered tablet as needed for nausea/vomiting, Substitution Allowed morphine Sulfate 30 mg, PO, Q12H, Substitution 09/19/2013 Ordered Allowed Neupogen 480 microgram, 1.6 mL, Route: 09/21/2013 09/22/2013 Discontinued SUB-Q, Drug form: INJ, Daily, Dosing Weight 52.727, kg, Start date: 09/21/13 9:00:00, Duration: 30 day, Stop date: 10/20/13 9:00:00(Same as: Neupogen) Valium 10 mg oral 0.5-1 tab, PO, Q6H, PRN, as needed 09/19/2013 Ordered tablet for anxiety, Substitution Allowed, TAB morphine Sulfate 30 mg, 1 tab, Route: PO, Drug form: 09/19/2013 09/22/2013 Discontinued ERTAB, Q12H, Dosing Weight 52.727, kg, Start date: 09/19/13 21:00:00, Duration: 30 day, Stop date: 10/19/13 9:00:00Do not crush (Same as:Oramorph SR, MS Contin) Vital Signs Most recent to oldest [Reference Range]: 1 2 3 Height 170.18 cm (09/19/2013 18:19:00) 170.18 cm (09/19/2013 18:18:00) Temperature Oral [96.4-99.1 DegF] 97.7 DegF (09/22/2013 08:00:00) 98.0 DegF (09/22/2013 03:34:00) 98.0 DegF (09/21/2013 23:01:00) Systolic Blood Pressure [90-140 mmHg] 93 mmHg (09/22/2013 08:00:00) 90 mmHg (09/22/2013 03:34:00) 95 mmHg (09/21/2013 23:01:00) Diastolic Blood Pressure [60-90 mmHg] 64 mmHg (09/22/2013 08:00:00) 57 mmHg *LOW* (09/22/2013 03:34:00) 63 mmHg (09/21/2013 23:01:00) Respiratory Rate [14-20 BRMIN] 18 BRMIN (09/22/2013 08:00:00) 17 BRMIN (09/22/2013 03:34:00) 16 BRMIN (09/21/2013 23:01:00) Peripheral Pulse Rate [60-100 bpm] 59 bpm *LOW* (09/22/2013 08:00:00) 62 bpm (09/22/2013 03:34:00) 72 bpm (09/21/2013 23:01:00) Weight 52.727 kg (09/19/2013 18:19:00) 52.727 kg (09/19/2013 18:18:00) Results URINALYSIS Most recent to oldest [Reference Range]: 1 2 3 UA Turbidity [Clear] Clear (09/19/2013 19:28:00) UA Color Ltyellow *NA* (09/19/2013 19:28:00) UA pH [5.0-8.0] 6.0 (09/19/2013 19:28:00) UA Spec Grav [<=1.030] 1.005 (09/19/2013 19:28:00) UA Glucose [Negative mg/dL] Negative mg/dL *NA* (09/19/2013 19:28:00) UA Blood [Negative] Negative (09/19/2013 19:28:00) UA Ketones [Negative mg/dL] Negative mg/dL *NA* (09/19/2013 19:28:00) UA Protein [Negative mg/dL] Negative mg/dL (09/19/2013 19:28:00) UA Urobilinogen [0.1-1.0 mg/dL] <=1.0 mg/dL *NA* (09/19/2013 19:28:00) UA Bili [Negative] Negative *NA* (09/19/2013 19:28:00) UA Leuk Est [Negative] Negative (09/19/2013 19:28:00) UA Nitrite [Negative] Negative (09/19/2013 19:28:00) UA Sq Epi [Few /LPF] Occasional /LPF *NA* (09/19/2013 19:28:00) STOOL TESTS Most recent to oldest [Reference Range]: 1 2 3 Occult Bld Stl [Negative] Negative (09/20/2013 10:30:00) Fecal Leukocyte None Seen 1 (09/20/2013 10:30:00) 1Interpretive Data: A Value of None Seen, Rare, or Few is Normal. CHEMISTRY Most recent to oldest [Reference Range]: 1 2 3 Sodium Lvl [135-145 mEq/L] 137 mEq/L (09/19/2013 18:39:00) Potassium Lvl [3.5-5.1 mEq/L] 3.8 mEq/L (09/19/2013 18:39:00) Chloride Lvl [95-109 mEq/L] 101 mEq/L (09/19/2013 18:39:00) CO2 [24-32 mEq/L] 26 mEq/L (09/19/2013 18:39:00) AGAP [10.0-20.0 mEq/L] 13.8 mEq/L (09/19/2013 18:39:00) Creatinine Lvl [0.5-1.4 mg/dL] 0.6 mg/dL (09/19/2013 18:39:00) eGFR 105 mL/min/1.73m2 2 *NA* (09/19/2013 18:39:00) BUN [7-22 mg/dL] 10 mg/dL (09/19/2013 18:39:00) B/C Ratio [6-25] 17 (09/19/2013 18:39:00) Glucose Lvl [70-99 mg/dL] 130 mg/dL 3 *HI* (09/19/2013 18:39:00) Total Protein [6.4-8.4 g/dL] 5.9 g/dL *LOW* (09/19/2013 18:39:00) Albumin Lvl [3.5-5.0 g/dL] 3.1 g/dL *LOW* (09/19/2013 18:39:00) Globulin [2.0-4.0 g/dL] 2.8 g/dL (09/19/2013 18:39:00) A/G Ratio [0.7-1.6] 1.1 (09/19/2013 18:39:00) Calcium Lvl [8.5-10.5 mg/dL] 8.6 mg/dL (09/19/2013 18:39:00) Magnesium Lvl [1.8-2.4 mg/dL] 1.8 mg/dL (09/19/2013 18:39:00) ALT [0-65 unit/L] 14 unit/L (09/19/2013 18:39:00) AST [0-37 unit/L] 12 unit/L (09/19/2013 18:39:00) Alk Phos [39-136 unit/L] 91 unit/L (09/19/2013 18:39:00) Bili Total [0.2-1.3 mg/dL] 0.4 mg/dL (09/19/2013 18:39:00) 2Result Comment: The eGFR is calculated using [...] be mul tiplied by the estimated BMI. 3Interpretive Data: Adult reference range values reflect the clinical guidelines of the [place] [employer]. HEMATOLOGY Most recent to oldest [Reference Range]: 1 2 3 WBC [3.7-10.4 K/CMM] 10.0 K/CMM (09/22/2013 03:45:20) 4.4 K/CMM (09/21/2013 05:01:00) 1.3 K/CMM 4 *CRIT* (09/19/2013 18:39:00) RBC [4.20-5.40 M/CMM] 2.44 M/CMM *LOW* (09/22/2013 03:45:20) 2.53 M/CMM *LOW* (09/21/2013 05:01:00) 2.88 M/CMM *LOW* (09/19/2013 18:39:00) Hgb [12.0-16.0 g/dL] 8.6 g/dL *LOW* (09/22/2013 03:45:20) 8.8 g/dL *LOW* (09/21/2013 05:01:00) 10.1 g/dL *LOW* (09/19/2013 18:39:00) Hct [36.0-48.0 %] 25.8 % *LOW* (09/22/2013 03:45:20) 26.6 % *LOW* (09/21/2013 05:01:00) 29.7 % *LOW* (09/19/2013 18:39:00) MCV [81.0-99.0 fL] 105.6 fL *HI* (09/22/2013 03:45:20) 104.8 fL *HI* (09/21/2013 05:01:00) 103.3 fL *HI* (09/19/2013 18:39:00) MCH [27.0-31.0 pg] 35.1 pg *HI* (09/22/2013 03:45:20) 34.5 pg *HI* (09/21/2013 05:01:00) 35.2 pg *HI* (09/19/2013 18:39:00) MCHC [32.0-36.0 g/dL] 33.2 g/dL (09/22/2013 03:45:20) 32.9 g/dL (09/21/2013 05:01:00) 34.1 g/dL (09/19/2013 18:39:00) RDW [11.5-14.5 %] 16.0 % *HI* (09/22/2013 03:45:20) 15.8 % *HI* (09/21/2013 05:01:00) 15.8 % *HI* (09/19/2013 18:39:00) Platelet [133-450 K/CMM] 63 K/CMM *LOW* (09/22/2013 03:45:20) 42 K/CMM *LOW* (09/21/2013 05:01:00) 39 K/CMM *LOW* (09/19/2013 18:39:00) MPV [7.4-10.4 fL] 10.7 fL *HI* (09/22/2013 03:45:20) 10.2 fL (09/21/2013 05:01:00) 9.9 fL (09/19/2013 18:39:00) Segs [45.0-75.0 %] 84.2 % *HI* (09/22/2013 03:45:20) 70.5 % (09/21/2013 05:01:00) 6.0 % *LOW* (09/19/2013 18:39:00) Bands [0.0-11.0 %] 7.0 % (09/19/2013 18:39:00) Lymphocytes [20.0-40.0 %] 12.1 % *LOW* (09/22/2013 03:45:20) 19.8 % *LOW* (09/21/2013 05:01:00) 74.0 % *HI* (09/19/2013 18:39:00) Monocytes [2.0-12.0 %] 3.2 % (09/22/2013 03:45:20) 9.1 % (09/21/2013 05:01:00) 13.0 % *HI* (09/19/2013 18:39:00) Eosinophils [0.0-4.0 %] 0.1 % (09/22/2013 03:45:20) 0.2 % (09/21/2013 05:01:00) Basophils [0.0-1.0 %] 0.4 % (09/22/2013 03:45:20) 0.4 % (09/21/2013 05:01:00) Segs-Bands # [1.5-8.1 K/CMM] 8.4 K/CMM *HI* (09/22/2013 03:45:20) 3.1 K/CMM (09/21/2013 05:01:00) 0.2 K/CMM *LOW* (09/19/2013 18:39:00) Lymphocytes # [1.0-5.5 K/CMM] 1.2 K/CMM (09/22/2013 03:45:20) 0.9 K/CMM *LOW* (09/21/2013 05:01:00) 1.0 K/CMM (09/19/2013 18:39:00) Monocytes # [0.0-0.8 K/CMM] 0.3 K/CMM (09/22/2013 03:45:20) 0.4 K/CMM (09/21/2013 05:01:00) 0.2 K/CMM (09/19/2013 18:39:00) Eosinophils # [0.0-0.5 K/CMM] 0.0 K/CMM (09/22/2013 03:45:20) 0.0 K/CMM (09/21/2013 05:01:00) Basophils # [0.0-0.2 K/CMM] 0.0 K/CMM (09/22/2013 03:45:20) 0.0 K/CMM (09/21/2013 05:01:00) RBC Morph Normal (09/19/2013 18:39:00) Polychrom [None Seen] Slight (09/22/2013 03:45:20) Slight (09/21/2013 05:01:00) Toxic Gran [None Seen] Slight *ABN* (09/22/2013 03:45:20) Slight *ABN* (09/21/2013 05:01:00) Dohle Bodies [None Seen] Slight *ABN* (09/22/2013 03:45:20) Slight *ABN* (09/21/2013 05:01:00) Plt Morph Normal (09/22/2013 03:45:20) Normal (09/21/2013 05:01:00) Normal (09/19/2013 18:39:00) 4Result Comment: Critical Result(s) called to ester julio at 09/19/2013 19:10_ by_ws. Read back OK. Microbiology Reports PROCEDURE:Culture: Urine STATUS: Auth (Verified) BODY SITE: COLLECTED DATE/TIME: 09/20/2013 22:33:08 SOURCE: Urine, Clean Catch FREE TEXT SOURCE: FINAL REPORTS Final Report <10,000 CFU/mL Skin Rachel PRELIMINARY REPORTS Preliminary Report No Growth; Holding PROCEDURE:Culture: Stool STATUS: Auth (Verified) BODY SITE: COLLECTED DATE/TIME: 09/20/2013 10:30:00 SOURCE: Stool FREE TEXT SOURCE: FINAL REPORTS Final Report No Salmonella, Shigella, Or Campylobacter Isolated Normal Enteric Rachel Isolated PRELIMINARY REPORTS Preliminary Report Normal Enteric Rachel Isolated Preliminary Report Normal Enteric Rachel Isolated Further Testing In Progress Preliminary Report Normal Enteric Rachel Isolated Subculture In Progress PROCEDURE:Culture: Blood STATUS: Order in Progress BODY SITE: Right Arm COLLECTED DATE/TIME: 09/20/2013 08:25:00 SOURCE: Blood FREE TEXT SOURCE: PRELIMINARY REPORTS Preliminary Report No Growth; Holding Preliminary Report No Growth At 3 Days Preliminary Report No Growth At 1 Day Preliminary Report No Growth At 4 Days Preliminary Report No Growth At 2 Days
--- OUTSIDE RECORDS SUMMARY | 2019-01-12 06:39 | XMS REPORT | CCD ---
Author Author Auto Generated Organization [facility] Address Unknown Phone Unavailable Care Team Providers Care Merchandise Distributor Name Role Phone Sneha Meraz CP Allergies, [...] 17:00:00, Stop date: 08/08/13 17:00:00(Same as: Neupogen) [employer] 10/325 oral 1 tab, PO, TID, PRN, [...] Duration: 30 day, Stop date: 09/08/13 17:22:00(nystatin-triamcinolone 875009 units/g-0.1% top CRM 60 gm ) D5W [...] Duration: 30 day, Stop date: 09/07/13 16:16:00Max uqojmdeytzcey=9443gw/day (4 gm/day). (Same as: Tylenol) Valium 5 mg, 1 tab, Route: PO, Drug form: 08/08/2013 08/13/2013 Discontinued TAB, Bedtime, Dosing Weight 51.364, kg, PRN as needed for anxiety, Start date: 08/08/13 17:26:00, Duration: 30 day, Stop date: 09/07/13 17:25:00(Same as: Valium) [employer] [place] [place] 10/325 oral 1 tab, Route: PO, Drug Form: TAB, 08/08/2013 08/13/2013 Discontinued tablet Dosing Weight 51.364, kg, TID, PRN Pain Score 1-3, Start date: 08/08/13 17:26:00, Duration: 30 day, Stop date: 09/07/13 17:25:00Do not exceed 4gm/day of acetaminophen. (Same as: [employer] [place] [place] 325/10) Bactroban 1 appl, Route: TOP, BID, [...] [Negative] Positive 1, 2 *ABN* (08/10/2013 10:55:00) 1Result Comment: "Significant Findings called to Grace Norman at 1233 08/11/13 by .Read Back OK." 2Interpretive Data: [employer] illum[employer]ene Clostridium difficile assay utilizes loop-mediated isothermal DNA amplification (LAMP) technology to detect a 204 bp region of the tcdA gene within the PaLoc gene segment present in all known toxigenic C. difficile strains. The assay utilizes FDA cleared IVD reagents. Performance characteristics have be en verified by the [facility] within the [facility]. The [facility] Laboratory is authorized under the Clinical Labo ratory Improvement Amendment of 1988 (CLIA-88) to perform high complexity testin g. URINALYSIS Most recent to oldest [Reference Range]: [...] clinical guidelines of the [place] [employer]. 7Interpretive Data: Adult reference range [...]
--- OUTSIDE RECORDS SUMMARY | 2019-01-12 06:39 | XMS REPORT | CCD ---
Author Author Auto Generated Organization [facility] Address Unknown Phone Unavailable Care Team Providers Care Grain Oilseed Or Pasture Farm Manager Name Role Phone Sneha Meraz CP Allergies, [...] 17:00:00, Stop date: 08/08/13 17:00:00(Same as: Neupogen) [place] 10/325 oral 1 tab, PO, TID, PRN, [...] Duration: 30 day, Stop date: 09/08/13 17:22:00(nystatin-triamcinolone 045032 units/g-0.1% top CRM 60 gm ) D5W [...] Duration: 30 day, Stop date: 09/07/13 16:16:00Max mpirusyopfecp=8421ou/day (4 gm/day). (Same as: Tylenol) Valium 5 mg, 1 tab, Route: PO, Drug form: 08/08/2013 08/13/2013 Discontinued TAB, Bedtime, Dosing Weight 51.364, kg, PRN as needed for anxiety, Start date: 08/08/13 17:26:00, Duration: 30 day, Stop date: 09/07/13 17:25:00(Same as: Valium) [place] 10/325 oral 1 tab, Route: PO, Drug Form: TAB, 08/08/2013 08/13/2013 Discontinued tablet Dosing Weight 51.364, kg, TID, PRN Pain Score 1-3, Start date: 08/08/13 17:26:00, Duration: 30 day, Stop date: 09/07/13 17:25:00Do not exceed 4gm/day of acetaminophen. (Same as: [place] 325/10) Bactroban 1 appl, Route: TOP, BID, [...] 1, 2 *ABN* (08/10/2013 10:55:00) 1Interpretive Data: [employer] Clostridium difficile assay utilizes loop-mediated isothermal DNA amplification (LAMP) technology to detect a 204 bp region of the tcdA gene within the PaLoc gene segment present in all known toxigenic C. difficile strains. The assay utilizes FDA cleared IVD reagents. Performance characteristics have be en verified by the [facility] within the [facility]. The [facility] is authorized [...] values reflect the clinical guidelines of the [place] [employer]. 7Interpretive Data: Adult reference range values reflect the clinical guidelines of the [place] Diabetes [employer]. HEMATOLOGY Most recent to oldest [...]
--- OUTSIDE RECORDS SUMMARY | 2019-01-12 06:40 | XMS REPORT | Summary of Care ---
Author Organization Unknown Address Unknown Phone Unavailable Encounter HQ Estephania(TRAVIS) [id number] Date(s): 10/12/14 - 10/12/14 [facility] [address] Ad[address] Jorgensen [address] Discharge Disposition: Home Physician Attending: Barrera Jarrett MD Reason for Visit EKG//LABS Problem List Condition Effective Dates Status Health Status Informant Anxiety(Confirmed) Resolved Breast Active cancer(Confirmed) Clostridium Resolved difficile(Confirmed) Clostridium Active difficile(Confirmed) 1 Depression(Confirmed Resolved ) Hypertension(Confirm Resolved ed) 1Problem added by Discern Expert. Allergies, Adverse Reactions, Alerts Substance Reaction Severity Status NKDA Active Medications No data available for this section Results ELECTROLYTES Most recent to 1 oldest [Reference Range]: Sodium Lvl [135-145 128 mEq/L mEq/L] *LOW* (10/12/14 11:18 AM) Potassium Lvl 4.4 mEq/L [3.5-5.1 mEq/L] (10/12/14 11:18 AM) Chloride Lvl [95-109 92 mEq/L mEq/L] *LOW* (10/12/14 11:18 AM) CO2 [24-32 mEq/L] 27 mEq/L (10/12/14 11:18 AM) AGAP [10.0-20.0 13.4 mEq/L mEq/L] (10/12/14 11:18 AM) CHEM PANEL Most recent to 1 oldest [Reference Range]: Creatinine Lvl 0.8 mg/dL [0.5-1.4 mg/dL] (10/12/14 11:18 AM) eGFR 84 mL/min/1.73m2 1 *NA* (10/12/14 11:18 AM) BUN [7-22 mg/dL] 11 mg/dL (10/12/14 11:18 AM) Glucose Lvl [70-99 82 mg/dL 2 mg/dL] (10/12/14 11:18 AM) Calcium Lvl 9.3 mg/dL [8.5-10.5 mg/dL] (10/12/14 11:18 AM) 1Result Comment: The eGFR is calculated using [...] values reflect the clinical guidelines of the [place] [employer]. HEMATOLOGY Most recent to 1 oldest [Reference Range]: WBC [3.7-10.4 K/CMM] 5.4 K/CMM (10/12/14 11:18 AM) RBC [4.20-5.40 3.98 M/CMM M/CMM] *LOW* (10/12/14:18 AM) Hgb [12.0-16.0 g/dL] 15.1 g/dL (10/12/14 11:18 AM) Hct [36.0-48.0 %] 43.5 % (10/12/14 11:18 AM) MCV [80.0-98.0 fL] 109.3 fL *HI* (10/12/14 11:18 AM) MCH [27.0-31.0 pg] 37.9 pg *HI* (10/12/14:18 AM) MCHC [32.0-36.0 34.7 g/dL g/dL] (10/12/14 11:18 AM) RDW [11.5-14.5 %] 13.7 % (10/12/14 11:18 AM) Platelet [133-450 304 K/CMM K/CMM] (10/12/14 11:18 AM) MPV [7.4-10.4 fL] 6.4 fL *LOW* (10/12/14 11:18 AM) Segs [45.0-75.0 %] 67.7 % (10/12/14 11:18 AM) Lymphocytes 17.9 % [20.0-40.0 %] *LOW* (10/12/14 11:18 AM) Monocytes [2.0-12.0 11.9 % %] (10/12/14 11:18 AM) Eosinophils [0.0-4.0 1.4 % %] (10/12/14 11:18 AM) Basophils [0.0-1.0 1.1 % %] *HI* (10/12/14 11:18 AM) Segs-Bands # 3.6 K/CMM [1.5-8.1 K/CMM] (10/12/14 11:18 AM) Lymphocytes # 1.0 K/CMM [1.0-5.5 K/CMM] (10/12/14 11:18 AM) Monocytes # [0.0-0.8 0.6 K/CMM K/CMM] (10/12/14 11:18 AM) Eosinophils # 0.1 K/CMM [0.0-0.5 K/CMM] (10/12/14 11:18 AM) Basophils # [0.0-0.2 0.1 K/CMM K/CMM] (10/12/14 11:18 AM) Macrocyte [None 3+ Seen] *NA* (10/12/14 11:18 AM) Medications Administered During Your Visit No data available for this section Immunizations Vaccine Date Refusal Reason influenza virus vaccine, inactivated 08/10/14 Social History Social History Type Response Smoking Status Former smoker, Type: Cigarettes, Previous treatment: None, Ready to change: Yes, Concerns about tobacco use in household: Yes, Exposure to Tobacco Smoke None, Cigarette Smoking Last 365 Days Yes, Reg Smoking Cessation Counseling Yes
--- OUTSIDE RECORDS SUMMARY | 2019-01-12 06:40 | XMS REPORT | Summary of Care ---
Author Organization Unknown Address Unknown Phone Unavailable Encounter [facility] Estephania(TRAVIS) [id number] Date(s): 08/09/14 - 08/11/14 [facility] [address] [address] Discharge Disposition: Home Physician Attending: Sneha Meraz MD Physician Admitting: Sneha Meraz MD Reason for Visit HEADACHE, GENERALIZED PAIN Vital Signs 1 2 3 Most recent to oldest [Reference Range]: 172.72 cm (08/09/14 2:21 PM) 172.72 cm (08/09/14 12:37 AM) Height 98.2 DegF (08/11/14 7:40 AM) 97.2 DegF (08/11/14 4:00 AM) 98.3 DegF (08/10/14 11:03 PM) Temperature Oral [96.4-99.1 DegF] 157 mmHg *HI* (08/11/14 7:40 AM) 124 mmHg (08/11/14 4:00 AM) 133 mmHg (08/10/14 11:03 PM) Systolic Blood Pressure [90-140 mmHg] 101 mmHg *HI* (08/11/14 7:40 AM) 81 mmHg (08/11/14 4:00 AM) 89 mmHg (08/10/14 11:03 PM) Diastolic Blood Pressure [60-90 mmHg] 18 BRMIN (08/11/14 7:40 AM) 20 BRMIN (08/11/14 4:00 AM) 18 BRMIN (08/10/14 11:03 PM) Respiratory Rate [14-20 BRMIN] 80 bpm (08/11/14 7:40 AM) 77 bpm (08/11/14 4:00 AM) 87 bpm (08/10/14 11:03 PM) Peripheral Pulse Rate [60-100 bpm] 53.182 kg (08/09/14 2:21 PM) 53.182 kg (08/09/14 12:37 AM) Weight 17.83 m2 (08/09/14 2:21 PM) 17.83 m2 (08/09/14 12:37 AM) Body Mass Index Problem List Condition Effective Dates Status Health Status Informant Anxiety(Confirmed) Resolved Breast Active cancer(Confirmed) Clostridium Resolved difficile(Confirmed) Clostridium Active difficile(Confirmed) 1 Depression(Confirmed Resolved ) Hypertension(Confirm Resolved ed) 1Problem added by Discern Expert. Allergies, Adverse Reactions, Alerts Substance Reaction Severity Status NKDA Active Medications Al hydroxide/Mg hydroxide/simethicone 5 mL, Route: PO, Drug Form: SUSP, Dosing Weight 53.182, kg, QID, PRN as needed f or indigestion, Start date: 08/09/14 14:06:00, Stop date: 09/08/14 14:05:00 Notes: (aluminum hydroxide-magnesium hyd-simethicone 498-100-22cs/5ml 30 ml ud S US) Start Date: 08/09/14 Stop Date: 08/11/14 Status: Discontinued Depacon + Sodium Chloride 0.9% IV 47.5 mL 250 mg, 2.5 mL, Route: IVPB, Drug form: INJ, ONCE, Dosing Weight 53.182, kg, Sta rt date: 08/09/14 17:10:00, Stop date: 08/09/14 17:10:00 Notes: Dilute in at least 50ml D5W or NS. Infusion rate=20 mg/min(Same As: Depac on) Start Date: 08/09/14 Stop Date: 08/09/14 Status: Completed Depacon + Sodium Chloride 0.9% IV 50 mL 250 mg, 2.5 mL, Route: IVPB, Drug form: INJ, ONCE, Dosing Weight 53.182, kg, Sta rt date: 08/10/14 7:55:00, Stop date: 08/10/14 7:55:00 Notes: Dilute in at least 50ml D5W or NS. Infusion rate=20 mg/min(Same As: Depac on) Start Date: 08/10/14 Stop Date: 08/10/14 Status: Completed Dilaudid 0.5 mg, Route: IVP, ONCE, Dosing Weight 53.182, kg, Priority: STAT, Start date: 08/09/14 5:11:00, Stop date: 08/09/14 5:11:00 Start Date: 08/09/14 Stop Date: 08/09/14 Status: Completed diphenhydrAMINE 25 mg, 10 mL, Route: PO, Drug form: LIQ, QID, Dosing Weight 53.182, kg, PRN as n eeded for allergy symptoms, Start date: 08/09/14 14:07:00, Stop date: 09/08/14 1 4:06:00 Notes: (Same as: Benadryl) Start Date: 08/09/14 Stop Date: 08/11/14 Status: Discontinued influenza virus vaccine, inactivated 0.5 ml, Route: IM, Drug Form: SUSP, Daily, Start date: 08/10/14 9:00:00, Duratio n: 1 doses or times, Stop date: 08/10/14 9:00:00 Notes: (Same as: Fluzone Quadrivalent) Start Date: 08/10/14 Stop Date: 08/10/14 Status: Completed letrozole 2.5 mg, 1 tab, Route: PO, Drug form: TAB, Daily, Dosing Weight 53.182, kg, Start date: 08/09/14 18:00:00, Duration: 30 day, Stop date: 09/08/14 9:00:00 Notes: Chemotherapy agent/Handle with caution (Same as:Femara) Start Date: 08/09/14 Stop Date: 08/11/14 Status: Discontinued Lexapro 10 mg, 1 tab, Route: PO, Drug form: TAB, QAM, Dosing Weight 53.182, kg, Start da te: 08/10/14 9:00:00, Duration: 30 day, Stop date: 09/08/14 9:00:00 Notes: (Same as: Lexapro) Start Date: 08/10/14 Stop Date: 08/11/14 Status: Discontinued magnesium sulfate 2 gm, 50 mL, Route: IVPB, Drug form: INJ, ONCE, Dosing Weight 53.182, kg, Total dose=2 gm, Start date: 08/09/14 14:47:00, Duration: 1 doses or times, Stop date: 08/09/14 14:47:00 Start Date: 08/09/14 Stop Date: 08/09/14 Status: Completed metoprolol 5 mg/5 ml INJ 5 mg, 5 mL, Route: IV, Drug form: INJ, Q6H, Dosing Weight 53.182, kg, PRN Elevat ed BP, Priority: NOW, Start date: 08/10/14 17:46:00, Duration: 30 day, Stop date : 09/09/14 17:45:00, B/P >150/90 Notes: (Same as: Lopressor)Push over 2 minutes Start Date: 08/10/14 Stop Date: 08/11/14 Status: Discontinued morphine Sulfate 4 mg, 2 mL, Route: IVP, Drug form: INJ, Q4H, Dosing Weight 53.182, kg, PRN Pain Score 7-10, Start date: 08/09/14 6:25:00, Duration: 30 day, Stop date: 09/08/14 6:24:00 Notes: (Same as:MORPhine Sulfate) Start Date: 08/09/14 Stop Date: 08/11/14 Status: Discontinued Neurontin 300 mg oral capsule 300 mg, 1 cap, Route: PO, Drug form: CAP, TID, Dosing Weight 53.182, kg, Start d ate: 08/10/14 9:00:00, Duration: 30 day, Stop date: 09/08/14 17:00:00 Notes: (Same as: Neurontin) Start Date: 08/10/14 Stop Date: 08/10/14 Status: Canceled [place] 10/325 oral tablet 1 tab, Route: PO, Drug Form: TAB, Dosing Weight 53.182, kg, Q4H, PRN Pain Score 4-6, Start date: 08/09/14 14:06:00, Stop date: 09/08/14 14:05:00 Notes: Do not exceed 4gm/day of acetaminophen. (Same as: [place] 325/10) Start Date: 08/09/14 Stop Date: 08/11/14 Status: Discontinued [place] 10/325 oral tablet 1 tab, PO, Q4H, for pain, # 24 tab, 0 Refill(s) Start Date: 08/09/14 Status: Ordered normal saline 0.9% IV 1,000 mL 1,000 mL, Rate: 100 ml/hr, Infuse over: 10 hr, Route: IV, Dosing Weight 53.182 k g, Total Volume: 1,000, Start date: 08/09/14 5:15:00, Duration: 30 day, Stop nyla e: 09/08/14 5:14:00 Start Date: 08/09/14 Stop Date: 08/11/14 Status: Discontinued NS (Bolus) IV 1,000 mL, 1,000 ml/hr, Infuse Over: 1 hr, Route: IV, ONCE, Priority: STAT, Dosin g Weight 53.182 kg, Start date: 08/09/14 5:12:00, Duration: 1 doses or times, St op date: 08/09/14 5:12:00 Start Date: 08/09/14 Stop Date: 08/09/14 Status: Completed Pamelor 25 mg, 1 cap, Route: PO, Drug form: CAP, BID, Dosing Weight 53.182, kg, Start da te: 08/10/14 9:00:00, Duration: 30 day, Stop date: 09/08/14 17:00:00 Notes: (Same as:Pamelor, Aventyl) Start Date: 08/10/14 Stop Date: 08/11/14 Status: Discontinued Phenergan + Sodium Chloride 0.9% IV 50 mL 12.5 mg, 0.5 mL, Route: IVPB, Q4H, Dosing Weight 53.182, kg, PRN Nausea & Vomiting, Start date: 08/09/14 16:09:00, Duration: 30 day, Stop date: 09/08/14 16:08:00 Notes: Do not give IV push. (Same as: Phenergan) Start Date: 08/09/14 Stop Date: 08/11/14 Status: Discontinued Solu-MEDROL 100 mg, 1.6 mL, Route: IVP, Drug form: INJ, ONCE, Dosing Weight 53.182, kg, Prio rity: NOW, Start date: 08/09/14 17:10:00, Stop date: 08/09/14 17:10:00 Notes: (Same as:Solu-MEDROL, A-Methapred) Start Date: 08/09/14 Stop Date: 08/09/14 Status: Completed Solu-MEDROL 100 mg, 1.6 mL, Route: IVP, Drug form: INJ, ONCE, Dosing Weight 53.182, kg, Prio rity: NOW, Start date: 08/10/14 7:55:00, Stop date: 08/10/14 7:55:00 Notes: (Same as:Solu-MEDROL, A-Methapred) Start Date: 08/10/14 Stop Date: 08/10/14 Status: Completed SUMAtriptan 5 mg, 0.42 mL, Route: SUB-Q, Drug form: INJ, ONCE, Dosing Weight 53.182, kg, Sta rt date: 08/09/14 4:29:00, Stop date: 08/09/14 4:29:00 Notes: For SUBCUTANEOUS use only Start Date: 08/09/14 Stop Date: 08/09/14 Status: Completed Tylenol with Codeine #3 oral tablet 1 tab, Route: PO, Drug Form: TAB, Dosing Weight 53.182, kg, Q4H, PRN Pain Score 1-3, Start date: 08/09/14 6:30:00, Duration: 30 day, Stop date: 09/08/14 6:29:00 Notes: Do not exceed 4gm/day of acetaminophen. (Same as: Tylenol with Codeine # 3) Start Date: 08/09/14 Stop Date: 08/09/14 Status: Discontinued Valium 5 mg, 1 tab, Route: PO, Drug form: TAB, Q6H, Dosing Weight 53.182, kg, PRN as ne eded for anxiety, Start date: 08/09/14 14:07:00, Stop date: 09/08/14 14:06:00 Notes: (Same as: Valium) Start Date: 08/09/14 Stop Date: 08/11/14 Status: Discontinued Valium 10 mg, 2 tab, Route: PO, Drug form: TAB, Q6H, PRN Anxiety, Start date: 08/09/14 14:19:00, Duration: 30 day, Stop date: 09/08/14 14:18:00 Notes: (Same as: Valium) Start Date: 08/09/14 Stop Date: 08/11/14 Status: Discontinued Vitamin B12 1,000 microgram, Route: IM, Drug form: INJ, [id number], Start date: 08/09/14 15:00: 00, Stop date: 09/08/14 3:00:00 Start Date: 08/09/14 Stop Date: 08/09/14 Status: Discontinued Vitamin B12 1,000 microgram, 1 mL, Route: IM, Drug form: INJ, Q7D, Start date: 08/09/14 18:0 0:00, Stop date: 09/06/14 9:00:00 Notes: (Same As: Vitamin B12) Start Date: 08/09/14 Stop Date: 08/11/14 Status: Discontinued Zofran 4 mg, 2 mL, Route: IV, Drug form: INJ, Q4H, Dosing Weight 53.182, kg, PRN Nausea , Start date: 08/09/14 8:20:00, Duration: 30 day, Stop date: 09/08/14 8:19:00 Notes: (Same as: Zofran) Start Date: 08/09/14 Stop Date: 08/11/14 Status: Discontinued Results ELECTROLYTES 1 2 3 Most recent to oldest [Reference Range]: 133 mEq/L *LOW* (08/10/14 4:24 AM) 129 mEq/L *LOW* (08/09/14 10:23 AM) 126 mEq/L *LOW* (08/09/14 2:20 AM) Sodium Lvl [135-145 mEq/L] 5.4 mEq/L *HI* (08/10/14 4:24 AM) 4.8 mEq/L (08/09/14 10:23 AM) 3.7 mEq/L (08/09/14 2:20 AM) Potassium Lvl [3.5-5.1 mEq/L] 104 mEq/L (08/10/14 4:24 AM) 97 mEq/L (08/09/14 10:23 AM) 92 mEq/L *LOW* (08/09/14 2:20 AM) Chloride Lvl [95-109 mEq/L] 19 mEq/L *LOW* (08/10/14 4:24 AM) 23 mEq/L *LOW* (08/09/14 10:23 AM) 24 mEq/L (08/09/14 2:20 AM) CO2 [24-32 mEq/L] 15.4 mEq/L (08/10/14 4:24 AM) 13.8 mEq/L (08/09/14 10:23 AM) 13.7 mEq/L (08/09/14 2:20 AM) AGAP [10.0-20.0 mEq/L] CHEM PANEL 1 2 3 Most recent to oldest [Reference Range]: 0.7 mg/dL (08/10/14 4:24 AM) 0.8 mg/dL (08/09/14 10:23 AM) 0.8 mg/dL (08/09/14 2:20 AM) Creatinine Lvl [0.5-1.4 mg/dL] 99 mL/min/1.73m2 1 *NA* (08/10/14 4:24 AM) 84 mL/min/1.73m2 2 *NA* (08/09/14 10:23 AM) 84 mL/min/1.73m2 3 *NA* (08/09/14 2:20 AM) eGFR 8 mg/dL (08/10/14 4:24 AM) 7 mg/dL (08/09/14 10:23 AM) 6 mg/dL *LOW* (08/09/14 2:20 AM) BUN [7-22 mg/dL] 158 mg/dL 4 *HI* (08/10/14 4:24 AM) 101 mg/dL 5 *HI* (08/09/14 10:23 AM) 84 mg/dL 6 (08/09/14 2:20 AM) Glucose Lvl [70-99 mg/dL] 8.6 mg/dL (08/10/14 4:24 AM) 8.1 mg/dL *LOW* (08/09/14 10:23 AM) 8.4 mg/dL *LOW* (08/09/14 2:20 AM) Calcium Lvl [8.5-10.5 mg/dL] 3.5 mg/dL (08/09/14 2:20 AM) Phosphorus [2.5-4.5 mg/dL] 1.5 mg/dL *LOW* (08/09/14 10:23 AM) 1.6 mg/dL *LOW* (08/09/14 2:20 AM) Magnesium Lvl [1.8-2.4 mg/dL] 179 unit/L (08/09/14 2:20 AM) Lipase Lvl [73-393 unit/L] 270 mOsm/kg *LOW* (08/09/14 10:23 AM) Osmolality [280-300 mOsm/kg] 1Result Comment: The eGFR is calculated using [...] be mul tiplied by the estimated BMI. 2Result Comment: The eGFR is calculated using [...] be mul tiplied by the estimated BMI. 3Result Comment: The eGFR is calculated using [...] be mul tiplied by the estimated BMI. 4Interpretive Data: Adult reference range values reflect the clinical guidelines of the [place] [employer]. 5Interpretive Data: Adult reference range values reflect the clinical guidelines of the [place] [employer]. 6Interpretive Data: Adult reference range values reflect the clinical guidelines of the [place] [employer]. ANEMIA STUDY 1 2 3 Most recent to oldest [Reference Range]: 750 pg/mL (08/09/14 10:23 AM) Vitamin B12 Lvl [254-1320 pg/mL] THYROID PANEL 1 2 3 Most recent to oldest [Reference Range]: 1.740 uIU/mL (08/09/14 10:23 AM) TSH [0.360-3.740 uIU/mL] URINE CHEM 1 2 3 Most recent to oldest [Reference Range]: 28.7 mg/dL 7 *NA* (08/09/14 11:22 AM) U Creatinine 205 mOsm/kg *LOW* (08/09/14 11:22 AM) U Osmolality [300-800 mOsm/kg] 7Interpretive Data: No established reference ranges. HEMATOLOGY 1 2 3 Most recent to oldest [Reference Range]: 5.0 K/CMM (08/09/14 10:23 AM) 4.7 K/CMM (08/09/14 2:20 AM) WBC [3.7-10.4 K/CMM] 3.47 M/CMM *LOW* (08/09/14 10:23 AM) 3.64 M/CMM *LOW* (08/09/14 2:20 AM) RBC [4.20-5.40 M/CMM] 12.8 g/dL (08/09/14 10:23 AM) 13.5 g/dL (08/09/14 2:20 AM) Hgb [12.0-16.0 g/dL] 37.4 % (08/09/14 10:23 AM) 38.6 % (08/09/14 2:20 AM) Hct [36.0-48.0 %] 107.7 fL *HI* (08/09/14 10:23 AM) 106.0 fL *HI* (08/09/14 2:20 AM) MCV [80.0-98.0 fL] 36.8 pg *HI* (08/09/14 10:23 AM) 37.1 pg *HI* (08/09/14 2:20 AM) MCH [27.0-31.0 pg] 34.2 g/dL (08/09/14 10:23 AM) 35.0 g/dL (08/09/14 2:20 AM) MCHC [32.0-36.0 g/dL] 16.0 % *HI* (08/09/14 10:23 AM) 16.5 % *HI* (08/09/14 2:20 AM) RDW [11.5-14.5 %] 303 K/CMM (08/09/14 10:23 AM) 312 K/CMM (08/09/14 2:20 AM) Platelet [133-450 K/CMM] 7.0 fL *LOW* (08/09/14 10:23 AM) 6.7 fL *LOW* (08/09/14 2:20 AM) MPV [7.4-10.4 fL] 61.3 % (08/09/14 10:23 AM) 61.9 % (08/09/14 2:20 AM) Segs [45.0-75.0 %] 23.9 % (08/09/14 10:23 AM) 25.5 % (08/09/14 2:20 AM) Lymphocytes [20.0-40.0 %] 10.3 % (08/09/14 10:23 AM) 8.5 % (08/09/14 2:20 AM) Monocytes [2.0-12.0 %] 3.3 % (08/09/14 10:23 AM) 3.3 % (08/09/14 2:20 AM) Eosinophils [0.0-4.0 %] 1.2 % *HI* (08/09/14 10:23 AM) 0.8 % (08/09/14 2:20 AM) Basophils [0.0-1.0 %] 3.1 K/CMM (08/09/14 10:23 AM) 2.9 K/CMM (08/09/14 2:20 AM) Segs-Bands # [1.5-8.1 K/CMM] 1.2 K/CMM (08/09/14 10:23 AM) 1.2 K/CMM (08/09/14 2:20 AM) Lymphocytes # [1.0-5.5 K/CMM] 0.5 K/CMM (08/09/14 10:23 AM) 0.4 K/CMM (08/09/14 2:20 AM) Monocytes # [0.0-0.8 K/CMM] 0.2 K/CMM (08/09/14 10:23 AM) 0.2 K/CMM (08/09/14 2:20 AM) Eosinophils # [0.0-0.5 K/CMM] 0.1 K/CMM (08/09/14 10:23 AM) Basophils # [0.0-0.2 K/CMM] 2+ *ABN* (08/09/14 10:23 AM) 2+ *ABN* (08/09/14 2:20 AM) Macrocyte [None Seen] Medications Administered During Your Visit No data available for this section Immunizations Vaccine Date Refusal Reason influenza virus vaccine, inactivated 08/10/14 Social History Social History Type Response Smoking Status Former smoker, Type: Cigarettes, Previous treatment: None, Ready to change: Yes, Concerns about tobacco use in household: Yes, Exposure to Tobacco Smoke None, Cigarette Smoking Last 365 Days Yes, Reg Smoking Cessation Counseling Yes Assessment and Plan Extracted from: Title: Clinical Document Author: Omar Rothman MD Date: 08/10/14 GI PROGRESS NOTE [facility] Gastroenterology SUBJECTIVE Events of the day reviewed. Nausea nearly esolved, no nausea, no vomiting OBJECTIVE Vital Signs (last 24 hrs) Last Charted Minimum Maximum Temp98.2 (AUG 10 12:00)97.6 (AUG 10 04:25)98.4 (AUG 10 00:33) Heart Rate73 (AUG 10 12:00)69 (AUG 09 16:00)96 (AUG 09 14:28) Resp Rate 16 (AUG 10 12:00)16 (AUG 09 14:28)16 (AUG 09 14:28) SBPH 149 (AUG 10 12:00)124 (AUG 10 04:25)H 154 (AUG 10 08:00) DBPH 91 (AUG 10 12:00)81 (AUG 09 21:03)H 94 (AUG 10 08:00) Sngphq02.182 (AUG 09 14:21) Hmzlky859.72 (AUG 09 14:21) BMI17.83 (AUG 09 14:21) PHYSICAL EXAM Alert and oriented Good air movement bilateraly Regular rate Abdomen: soft, NTND, +bs Ext: trace edema Labs (Last four charted values) WBC 5.0(AUG 09)4.7(AUG 09) Hgb 12.8(AUG 09)13.5(AUG 09) Hct 37.4(AUG 09)38.6(JUL 15) Plt 303(AUG 09)312(JUL 15) Na L 133(JUL 16)L 129(JUL 15)L 126(JUL 15) K H 5.4(JUL 16)4.8(JUL 15)3.7(JUL 15) CO2 L 19(JUL 16)L 23(JUL 15)24(JUL 15) Cl 104(JUL 16)97(JUL 15)L 92(JUL 15) Cr 0.7(JUL 16)0.8(JUL 15)0.8(JUL 15) BUN 8(JUL 16)7(JUL 15)L 6(JUL 15) Glucose Random H 158(JUL 16)H 101(JUL 15)84(JUL 15) Mg L 1.5(JUL 15)L 1.6(JUL 15) Phos 3.5(JUL 15) Ca 8.6(AUG 10)L 8.1(JUL 15)L 8.4(JUL 15) A/P Nausea Headaches Hx breast ca - symptomatically improved - agree with d/c planning tomorrow pending symptoms
--- OUTSIDE RECORDS SUMMARY | 2019-01-12 06:40 | XMS REPORT | CCD ---
Author Author Auto Generated Organization [facility] Address Unknown Phone Unavailable Care Team Providers Care Installation And Service Technician Name Role Phone Sneha Meraz CP Allergies, [...] 17:00:00, Stop date: 08/08/13 17:00:00(Same as: Neupogen) [place] 10/325 oral 1 tab, PO, TID, PRN, [...] Duration: 30 day, Stop date: 09/08/13 17:22:00(nystatin-triamcinolone [id number] units/g-0.1% top CRM 60 gm ) D5W [...] Duration: 30 day, Stop date: 09/07/13 16:16:00Max jpowwfwfjehsn=0560sy/day (4 gm/day). (Same as: Tylenol) Valium 5 mg, 1 tab, Route: PO, Drug form: 08/08/2013 08/13/2013 Discontinued TAB, Bedtime, Dosing Weight 51.364, kg, PRN as needed for anxiety, Start date: 08/08/13 17:26:00, Duration: 30 day, Stop date: 09/07/13 17:25:00(Same as: Valium) [place] 10/325 oral 1 tab, Route: PO, Drug Form: TAB, 08/08/2013 08/13/2013 Discontinued tablet Dosing Weight 51.364, kg, TID, PRN Pain Score 1-3, Start date: 08/08/13 17:26:00, Duration: 30 day, Stop date: 09/07/13 17:25:00Do not exceed 4gm/day of acetaminophen. (Same as: [place] 325/10) Bactroban 1 appl, Route: TOP, BID, [...] 1, 2 *ABN* (08/10/2013 10:55:00) 1Interpretive Data: Ciplexigene Clostridium difficile assay utilizes loop-mediated isothermal DNA amplification (LAMP) technology to detect a 204 bp region of the tcdA gene within the PaLoc gene segment present in all known toxigenic C. difficile strains. The assay utilizes FDA cleared IVD reagents. Performance characteristics have be en verified by the [facility] within the [facility]. The [facility] Laboratory is authorized [...] values reflect the clinical guidelines of the [place] [employer]. 7Interpretive Data: Adult reference range values reflect the clinical guidelines of the [place] [employer]. HEMATOLOGY Most recent to oldest [...]
--- OUTSIDE RECORDS SUMMARY | 2019-01-12 06:40 | XMS REPORT | Summary of Care ---
Author Organization Unknown Address Unknown Phone Unavailable Encounter [facility] Estephania(TRAVIS) [id number] Date(s): 02/10/14 - 02/10/14 [facility] Outpatient Imaging - [address] [address] [place] Discharge Disposition: Home Physician Attending: Glenn Staton Reason for Visit 799.9 - [facility] Problem List Condition Effective Dates Status Health Status Informant Anxiety(Confirmed) Resolved Breast Active cancer(Confirmed) Clostridium Resolved difficile(Confirmed) Clostridium Active difficile(Confirmed) 1 Depression(Confirmed Resolved ) Hypertension(Confirm Resolved ed) 1Problem added by Discern Expert. Allergies, Adverse Reactions, Alerts Substance Reaction Severity Status NKDA Active Medications No data available for this section Medications Administered During Your Visit No data available for this section Immunizations No data available for this section Social History Social History Type Response Smoking Status Former smoker, Type: Cigarettes, Previous treatment: None, Ready to change: Yes, Concerns about tobacco use in household: Yes, Exposure to Tobacco Smoke None, Cigarette Smoking Last 365 Days Yes, Reg Smoking Cessation Counseling Yes
--- OUTSIDE RECORDS SUMMARY | 2019-01-12 06:40 | XMS REPORT | CCD ---
Author Author Auto Generated Organization [facility] Address Unknown Phone Unavailable Care Team Providers Care Unit Coordinator Name Role Phone Sneha Meraz CP Allergies, [...] 17:00:00, Stop date: 08/08/13 17:00:00(Same as: Neupogen) [place] 10/325 oral 1 tab, PO, TID, PRN, [...] Duration: 30 day, Stop date: 09/08/13 17:22:00(nystatin-triamcinolone 779902 units/g-0.1% top CRM 60 gm ) D5W [...] Duration: 30 day, Stop date: 09/07/13 16:16:00Max cozglewjufoaz=1771ag/day (4 gm/day). (Same as: Tylenol) Valium 5 mg, 1 tab, Route: PO, Drug form: 08/08/2013 08/13/2013 Discontinued TAB, Bedtime, Dosing Weight 51.364, kg, PRN as needed for anxiety, Start date: 08/08/13 17:26:00, Duration: 30 day, Stop date: 09/07/13 17:25:00(Same as: Valium) [place] 10/325 oral 1 tab, Route: PO, Drug Form: TAB, 08/08/2013 08/13/2013 Discontinued tablet Dosing Weight 51.364, kg, TID, PRN Pain Score 1-3, Start date: 08/08/13 17:26:00, Duration: 30 day, Stop date: 09/07/13 17:25:00Do not exceed 4gm/day of acetaminophen. (Same as: [place] 325/10) Bactroban 1 appl, Route: TOP, BID, [...] 1, 2 *ABN* (08/10/2013 10:55:00) 1Interpretive Data: Revstrigene Clostridium difficile assay utilizes loop-mediated isothermal DNA amplification (LAMP) technology to detect a 204 bp region of the tcdA gene within the PaLoc gene segment present in all known toxigenic C. difficile strains. The assay utilizes FDA cleared IVD reagents. Performance characteristics have be en verified by the [facility] within the [facility]. The [facility] is authorized [...] values reflect the clinical guidelines of the [place] [employer]. 7Interpretive Data: Adult reference range values reflect the clinical guidelines of the [place] [employer]. HEMATOLOGY Most recent to oldest [...]
--- OUTSIDE RECORDS SUMMARY | 2019-01-12 06:40 | XMS REPORT | Summary of Care ---
Author Organization Unknown Address Unknown Phone Unavailable Encounter [facility]) [id number] Date(s): 05/07/14 - 05/09/14 [facility] [id number] Discharge Disposition: Home Physician Attending: Sneha Meraz MD Physician Admitting: Sneha Meraz MD Physician_Referring: Sneha Meraz MD Reason for Visit VOMITING/SHORTNESS OF BREATH Vital Signs 1 2 3 Most recent to oldest [Reference Range]: 154.94 cm (05/04/14 4:06 PM) Height 47.727 kg (05/04/14 4:21 PM) Current Weight 97.7 DegF (05/09/14 8:00 AM) 97.6 DegF (05/09/14 3:35 AM) 97.3 DegF (05/09/14 12:16 AM) Temperature Oral [96.4-99.1 DegF] 124 mmHg (05/09/14 8:00 AM) 95 mmHg (05/09/14 3:35 AM) 108 mmHg (05/09/14 12:16 AM) Systolic Blood Pressure [90-140 mmHg] 86 mmHg (05/09/14 8:00 AM) 60 mmHg (05/09/14 3:35 AM) 66 mmHg (05/09/14 12:16 AM) Diastolic Blood Pressure [60-90 mmHg] 20 BRMIN (05/09/14 8:00 AM) 17 BRMIN (05/09/14 3:35 AM) 17 BRMIN (05/09/14 12:16 AM) Respiratory Rate [14-20 BRMIN] 69 bpm (05/09/14 8:00 AM) 69 bpm (05/09/14 3:35 AM) 61 bpm (05/09/14 12:16 AM) Peripheral Pulse Rate [60-100 bpm] 47.727 kg (05/04/14 4:06 PM) Weight 19.88 m2 (05/04/14 4:06 PM) Body Mass Index Problem List Condition Effective Dates Status Health Status Informant Anxiety(Confirmed) Resolved Breast Active cancer(Confirmed) Clostridium Resolved difficile(Confirmed) Clostridium Active difficile(Confirmed) 1 Depression(Confirmed Resolved ) Hypertension(Confirm Resolved ed) 1Problem added by Discern Expert. Allergies, Adverse Reactions, Alerts Substance Reaction Severity Status NKDA Active Medications acetaminophen 650 mg, 2 tab, Route: PO, Drug form: TAB, Q4H, Dosing Weight 62.727, kg, PRN [place] n 1-3/Temp > 100.4 F, Start date: 05/04/14 10:33:00, Duration: 30 day, Stop date: 06/03/14 10:32:00 Notes: Do not exceed 4 gm/day. (Same as: Tylenol) Start Date: 05/04/14 Stop Date: 05/09/14 Status: Discontinued Al hydroxide/Mg hydroxide/simethicone 5 mL, Route: PO, Drug Form: SUSP, Dosing Weight 47.727, kg, QID, PRN Indigestion , Start date: 05/05/14 6:10:00, Duration: 30 day, Stop date: 06/04/14 6:09:00, d yspepsia Notes: (aluminum hydroxide-magnesium hyd-simethicone [phone]/5ml 30 ml ud S US) Start Date: 05/05/14 Stop Date: 05/09/14 Status: Discontinued D5W 1/2NS + KCL 20mEq/L 1000ml (Premix) 1,000 mL 1,000 mL, Rate: 100 ml/hr, Infuse over: 10 hr, Route: IV, Dosing Weight 62.727 k g, Total Volume: 1,000, Start date: 05/04/14 10:33:00, Duration: 30 day, Stop da te: 06/03/14 10:32:00 Notes: PREMIX IV - Do Not Alter Start Date: 05/04/14 Stop Date: 05/09/14 Status: Discontinued diphenhydrAMINE 25 mg, 10 mL, Route: PO, Drug form: LIQ, QID, Dosing Weight 47.727, kg, PRN Itch ing, Start date: 05/05/14 6:11:00, Duration: 30 day, Stop date: 06/04/14 6:10:00 Notes: (Same as: Benadryl) Start Date: 05/05/14 Stop Date: 05/09/14 Status: Discontinued docusate 100 mg, 1 cap, Route: PO, Drug form: CAP, BID, Dosing Weight 62.727, kg, PRN as needed for constipation, Start date: 05/04/14 10:33:00, Duration: 30 day, Stop d ate: 06/03/14 10:32:00 Notes: (Same as: Colace) (Do Not Crush) Start Date: 05/04/14 Stop Date: 05/09/14 Status: Discontinued hydromorphone 0.5 mg, 0.5 mL, Route: IV, Drug form: INJ, Q3H, Dosing Weight 47.727, kg, PRN Pa in Score 6-10, Start date: 05/04/14 18:09:00, Duration: 30 day, Stop date: 06/03 18:08:00 Start Date: 05/04/14 Stop Date: 05/09/14 Status: Discontinued ketorolac 15 mg/mL injectable solution 15 mg, 1 mL, Route: IV, Drug form: INJ, Q6H, Dosing Weight 47.727, kg, Start nyla e: 05/05/14 12:00:00, Duration: 4 day, Stop date: 05/09/14 6:00:00 Notes: (Same as:Toradol) IV bolus must be given >15 seconds. Give IM administration slowly and deeply into the muscle. Not for use > 4 days. Start Date: 05/05/14 Stop Date: 05/09/14 Status: Completed letrozole 2.5 mg, 1 tab, Route: PO, Drug form: TAB, Daily, Dosing Weight 47.727, kg, Start date: 05/08/14 9:00:00, Duration: 30 day, Stop date: 06/06/14 9:00:00 Notes: (Same as:Femara) Start Date: 05/08/14 Stop Date: 05/09/14 Status: Discontinued letrozole 2.5 mg oral tablet 2.5 mg=1 tab, PO, Daily, 0 Refill(s) Start Date: 05/04/14 Status: Ordered Lexapro 10 mg, 1 tab, Route: PO, Drug form: TAB, QAM, Dosing Weight 47.727, kg, Start da te: 05/05/14 9:00:00, Duration: 30 day, Stop date: 06/03/14 9:00:00 Notes: (Same as: Lexapro) Start Date: 05/05/14 Stop Date: 05/09/14 Status: Discontinued Lyrica 75 mg, 1 cap, Route: PO, Drug form: CAP, Q12H, Dosing Weight 47.727, kg, Start d ate: 05/05/14 21:00:00, Duration: 30 day, Stop date: 06/04/14 9:00:00 Notes: (Same as: Lyrica) Start Date: 05/05/14 Stop Date: 05/09/14 Status: Discontinued Buckley 10/325 oral tablet 1 tab, Route: PO, Drug Form: TAB, Dosing Weight 47.727, kg, Q4H, PRN Pain, Start date: 05/06/14 19:37:00, Duration: 30 day, Stop date: 06/05/14 19:36:00 Notes: (Same as: Buckley 325/10) Start Date: 05/06/14 Stop Date: 05/09/14 Status: Discontinued Saline Flush 0.9% 5 ml, Route: IVP, Drug Form: INJ, Dosing Weight 62.727, kg, PRN, PRN Line Flush, Start date: 05/04/14 10:33:00, Duration: 30 day, Stop date: 06/03/14 10:32:00 Notes: (Same as: BD Posiflush) Start Date: 05/04/14 Stop Date: 05/09/14 Status: Discontinued trazodone 50 mg oral tablet 50 mg, 1 tab, Route: PO, Drug form: TAB, Bedtime, Dosing Weight 47.727, kg, PRN Sleep, Start date: 05/06/14 21:43:00, Duration: 30 day, Stop date: 06/05/14 21:4 2:00 Notes: (Same As: Desyrel) Start Date: 05/06/14 Stop Date: 05/09/14 Status: Discontinued Valium 10 mg, 2 tab, Route: PO, Drug form: TAB, Q6H, Dosing Weight 47.727, kg, PRN Anxi ety, Start date: 05/05/14 6:11:00, Stop date: 06/04/14 6:10:00 Notes: (Same as: Valium) Start Date: 05/05/14 Stop Date: 05/09/14 Status: Discontinued Zofran 4 mg, 1 tab, Route: PO, Drug form: TAB, Q6H, Dosing Weight 47.727, kg, PRN Vomit ing, Start date: 05/05/14 6:11:00, Duration: 30 day, Stop date: 06/04/14 6:10:00 Notes: (Same as: Zofran) Start Date: 05/05/14 Stop Date: 05/09/14 Status: Discontinued Results ELECTROLYTES 1 2 3 Most recent to oldest [Reference Range]: 134 mEq/L *LOW* (05/04/14 3:52 PM) Sodium Lvl [135-145 mEq/L] 3.8 mEq/L (05/04/14 3:52 PM) Potassium Lvl [3.5-5.1 mEq/L] 99 mEq/L (05/04/14 3:52 PM) Chloride Lvl [95-109 mEq/L] 28 mEq/L (05/04/14 3:52 PM) CO2 [24-32 mEq/L] 10.8 mEq/L (05/04/14 3:52 PM) AGAP [10.0-20.0 mEq/L] CHEM PANEL 1 2 3 Most recent to oldest [Reference Range]: 0.9 mg/dL (05/04/14 3:52 PM) Creatinine Lvl [0.5-1.4 mg/dL] 73 mL/min/1.73m2 1 *NA* (05/04/14 3:52 PM) eGFR 14 mg/dL (05/04/14 3:52 PM) BUN [7-22 mg/dL] 16 (05/04/14 3:52 PM) B/C Ratio [6-25] 93 mg/dL 2 (05/04/14 3:52 PM) Glucose Lvl [70-99 mg/dL] 6.5 g/dL (05/04/14 3:52 PM) Total Protein [6.4-8.4 g/dL] 3.9 g/dL (05/04/14 3:52 PM) Albumin Lvl [3.5-5.0 g/dL] 2.6 g/dL (05/04/14 3:52 PM) Globulin [2.0-4.0 g/dL] 1.5 (05/04/14 3:52 PM) A/G Ratio [0.7-1.6] 8.9 mg/dL (05/04/14 3:52 PM) Calcium Lvl [8.5-10.5 mg/dL] 1.9 mg/dL (05/04/14 3:52 PM) Magnesium Lvl [1.8-2.4 mg/dL] 23 unit/L (05/04/14 3:52 PM) ALT [0-65 unit/L] 27 unit/L (05/04/14 3:52 PM) AST [0-37 unit/L] 110 unit/L (05/04/14 3:52 PM) Alk Phos [39-136 unit/L] 118 unit/L (05/08/14 12:10 AM) LDH [98-192 unit/L] 0.4 mg/dL (05/04/14 3:52 PM) Bili Total [0.2-1.3 mg/dL] 1.9 mg/L (05/08/14 12:10 AM) K-6-Lpdaplrcq [1.0-2.3 mg/L] 1Result Comment: The eGFR is calculated using [...] values reflect the clinical guidelines of the [place] [employer]. ANEMIA STUDY 1 2 3 Most recent to oldest [Reference Range]: 1763 pg/mL *HI* (05/04/14 3:52 PM) Vitamin B12 Lvl [254-1320 pg/mL] 4.4 ng/mL (05/04/14 3:52 PM) Folate Lvl [>=3.0 ng/mL] URINE AND STOOL 1 2 3 Most recent to oldest [Reference Range]: Clear (05/04/14 10:48 PM) UA Turbidity [Clear] Ltyellow *NA* (05/04/14 10:48 PM) UA Color 7.0 (05/04/14 10:48 PM) UA pH [5.0-8.0] >=1.050 *ABN* (05/04/14 10:48 PM) UA Spec Grav [<=1.030] Negative mg/dL *NA* (05/04/14 10:48 PM) UA Glucose [Negative mg/dL] Negative (05/04/14 10:48 PM) UA Blood [Negative] Negative mg/dL *NA* (05/04/14 10:48 PM) UA Ketones [Negative mg/dL] Negative mg/dL (05/04/14 10:48 PM) UA Protein [Negative mg/dL] <=1.0 mg/dL *NA* (05/04/14 10:48 PM) UA Urobilinogen [0.1-1.0 mg/dL] Negative *NA* (05/04/14 10:48 PM) UA Bili [Negative] Negative (05/04/14 10:48 PM) UA Leuk Est [Negative] Negative (05/04/14 10:48 PM) UA Nitrite [Negative] <1 /HPF (05/04/14 10:48 PM) UA WBC [0-5 /HPF] 1 /HPF (05/04/14 10:48 PM) UA RBC [0-2 /HPF] Occasional /LPF *NA* (05/04/14 10:48 PM) UA Sq Epi [Few /LPF] HEMATOLOGY 1 2 3 Most recent to oldest [Reference Range]: 2.9 K/CMM *LOW* (05/09/14 6:59 AM) 4.9 K/CMM (05/08/14 12:10 AM) 3.3 K/CMM *LOW* (05/07/14 7:05 AM) WBC [3.7-10.4 K/CMM] 3.50 M/CMM *LOW* (05/09/14 6:59 AM) 3.12 M/CMM *LOW* (05/08/14 12:10 AM) 3.24 M/CMM *LOW* (05/07/14 7:05 AM) RBC [4.20-5.40 M/CMM] 13.2 g/dL (05/09/14 6:59 AM) 11.8 g/dL *LOW* (05/08/14 12:10 AM) 12.3 g/dL (05/07/14 7:05 AM) Hgb [12.0-16.0 g/dL] 39.9 % (05/09/14 6:59 AM) 36.0 % (05/08/14 12:10 AM) 37.7 % (05/07/14 7:05 AM) Hct [36.0-48.0 %] 113.9 fL *HI* (05/09/14 6:59 AM) 115.3 fL *HI* (05/08/14 12:10 AM) 116.1 fL *HI* (05/07/14 7:05 AM) MCV [81.0-99.0 fL] 37.8 pg *HI* (05/09/14 6:59 AM) 37.7 pg *HI* (05/08/14 12:10 AM) 37.9 pg *HI* (05/07/14 7:05 AM) MCH [27.0-31.0 pg] 33.2 g/dL (05/09/14 6:59 AM) 32.7 g/dL (05/08/14 12:10 AM) 32.7 g/dL (05/07/14 7:05 AM) MCHC [32.0-36.0 g/dL] 13.9 % (05/09/14 6:59 AM) 13.8 % (05/08/14 12:10 AM) 14.0 % (05/07/14 7:05 AM) RDW [11.5-14.5 %] 239 K/CMM (05/09/14 6:59 AM) 228 K/CMM (05/08/14 12:10 AM) 247 K/CMM (05/07/14 7:05 AM) Platelet [133-450 K/CMM] 6.9 fL *LOW* (05/09/14 6:59 AM) 7.2 fL *LOW* (05/08/14 12:10 AM) 6.8 fL *LOW* (05/07/14 7:05 AM) MPV [7.4-10.4 fL] 57.9 % (05/09/14 6:59 AM) 75.2 % *HI* (05/08/14 12:10 AM) 62.9 % (05/07/14 7:05 AM) Segs [45.0-75.0 %] 22.9 % (05/09/14 6:59 AM) 12.0 % *LOW* (05/08/14 12:10 AM) 19.0 % *LOW* (05/07/14 7:05 AM) Lymphocytes [20.0-40.0 %] 12.3 % *HI* (05/09/14 6:59 AM) 9.3 % (05/08/14 12:10 AM) 12.6 % *HI* (05/07/14 7:05 AM) Monocytes [2.0-12.0 %] 5.7 % *HI* (05/09/14 6:59 AM) 2.4 % (05/08/14 12:10 AM) 4.3 % *HI* (05/07/14 7:05 AM) Eosinophils [0.0-4.0 %] 1.2 % *HI* (05/09/14 6:59 AM) 1.1 % *HI* (05/08/14 12:10 AM) 1.2 % *HI* (05/07/14 7:05 AM) Basophils [0.0-1.0 %] 1.7 K/CMM (05/09/14 6:59 AM) 3.7 K/CMM (05/08/14 12:10 AM) 2.1 K/CMM (05/07/14 7:05 AM) Segs-Bands # [1.5-8.1 K/CMM] 0.7 K/CMM *LOW* (05/09/14 6:59 AM) 0.6 K/CMM *LOW* (05/08/14 12:10 AM) 0.6 K/CMM *LOW* (05/07/14 7:05 AM) Lymphocytes # [1.0-5.5 K/CMM] 0.4 K/CMM (05/09/14 6:59 AM) 0.4 K/CMM (05/08/14 12:10 AM) 0.4 K/CMM (05/07/14 7:05 AM) Monocytes # [0.0-0.8 K/CMM] 0.2 K/CMM (05/09/14 6:59 AM) 0.1 K/CMM (05/08/14 12:10 AM) 0.1 K/CMM (05/07/14 7:05 AM) Eosinophils # [0.0-0.5 K/CMM] 0.1 K/CMM (05/08/14 12:10 AM) Basophils # [0.0-0.2 K/CMM] Normal (05/09/14 6:59 AM) RBC Morph 3+ *NA* (05/09/14 6:59 AM) 3+ *NA* (05/08/14 12:10 AM) 3+ *NA* (05/07/14 7:05 AM) Macrocyte [None Seen] Normal (05/09/14 6:59 AM) Plt Morph 1.2 % (05/08/14 12:10 AM) Retic Auto [0.5-1.5 %] TUMOR MARKERS 1 2 3 Most recent to oldest [Reference Range]: 6.3 ng/mL *HI* (05/05/14 7:48 AM) CEA [0.0-3.0 ng/mL] 21.3 unit/mL (05/04/14 3:52 PM) CA 15-3 [0.0-31.0 unit/mL] 33 unit/mL (05/04/14 3:52 PM) CA 27 29 [0-40 unit/mL] MOLECULAR DIAGNOSTIC 1 2 3 Most recent to oldest [Reference Range]: Negative 3 (05/05/14 12:24 PM) C difficile DNA [Negative] 3Interpretive Data: [place] [employer] Clostridium difficile assay utilizes loop-mediated isothermal DNA amplification (LAMP) technology to detect a 204 bp region of the tcdA gene within the PaLoc gene segment present in all known toxigenic C. difficile strains. The assay utilizes FDA cleared IVD reagents. Performance characteristics have be en verified by the [facility] within the [facility]. The [facility] Laboratory is authorized under the Clinical Labo ratory Improvement Amendment of 1988 (CLIA-88) to perform high complexity testin g. Medications Administered During Your Visit No data [...] Plan Extracted from: Title: Clinical Document Author: Julio Kumar MD Date: 05/09/14 Progress Daily [facility] Completed: Apr, 10:06 by Julio Kumar MD RM: 227 - 1P, SE C2CFOX, CARLOS COLIN53y (: 1960) F Attending: Sneha Meraz MDPhone: Service: Internal Medicine Reason for Admission: VOMITING/SHORTNESS OF BREATH Working DRG: Esophagitis, gastroent & misc digest disorders w/o LONGTERM Code status: Full Code [Ordered]Current diet: Isolation: None Documented Allergies: NKDA SUBJECTIVE The patient states the pain is improved Pain scores on 0-10 scale within the last 24 h. Worst pain: 8 Least pain: 3 Average pain: 5 Acceptable pain: 4 Current pain: 5 The pain medications are tolerated well. No side effects. Oral intake is toelrated well. OBJECTIVE General: The patient appears to be in no apparent pain. 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 Durán still necessary (Yes/No): Line still necessary (Yes/No): 24hr Labs 05/09 0659 WBC2.9 L RBC3.50 L Hgb13.2 Hct39.9 ESP536.9 H MCH37.8 H MCHC33.2 RDW13.9 Rqarapcb711 MPV6.9 L Segs57.9 Tjxbaxewq09.3 H Xpkzyluxfbb82.9 Eosinophils5.7 H Basophils1.2 H Segs-Bands #1.7 Lymphocytes #0.7 L Monocytes #0.4 Eosinophils #0.2 RBC MorphNormal Plt MorphNormal Macrocyte3+ 05/08 0010 K-2-Vqgbdunhb8.9 VitalsTmp(F)OrndnFAMSSeV8RNF4 05/09 08:0097.737120/8620------ 05/09 03:3597.54452/166784--- 05/09 00:1697.953418/350521--- 05/08 19:41----[id number]--- 05/08 16:1498.231716/7518------ 24 Hr Tmax: 98.3F (36.83c) at 05/08 11:14Vital Signs are the last 5 in the past 48 hours. DateWt(kg)Wt(lb)Ht(cm)Ht(in)Method 05/04 (initial) 47.73 [phone] 61.00Stated I&ORecordInOutBal 4hr Tot 0 0 0 1424hr Tot 14 0 14 Medications (13) Active Scheduled Meds (3): 05/05/14 escitalopram (Lexapro) 10 mg PO QAM 05/08/14 letrozole 2.5 mg PO Daily 05/05/14 pregabalin (Lyrica) 75 mg PO Q12H Unscheduled Meds: None PRN Meds (10): 05/05/14 Al hydroxide/Mg hydroxide/simethicone 5 mL PO QID 05/06/14 acetaminophen-hydrocodone (Buckley 10/325 oral tablet) 1 tab PO Q4H 05/04/14 acetaminophen 650 mg PO Q4H 05/05/14 diazepam (Valium) 10 mg PO Q6H 05/05/14 diphenhydrAMINE 25 mg PO QID 05/04/14 docusate 100 mg PO BID 05/04/14 hydromorphone 0.5 mg IV Q3H 05/05/14 ondansetron (Zofran) 4 mg PO Q6H 05/04/14 sodium chloride (Saline Flush 0.9%) 5 ml IVP PRN 05/06/14 trazodone (trazodone 50 mg oral tablet) 50 mg PO Bedtime One Time Meds: None Continuous Infusions: None Extracted from: Title: Clinical Document Author: Helena Serna SLOT OPERATIONS MANAGER SLOT OPERATIONS MANAGER Date: 05/08/14 Brief Neurosurgery Progress Note S: Patient is awake in bed. Patient is visibly distraught and tearful. She appears severely anxious concerning her difficulty with her insurance and she is very concerned with where and how she will get further care upon discharge. She does report her right leg pain is improved, but is still causing her pain. O: AFVSS A/P: - There is no surgical intervention for us to perform at this time for Ms. Calvin - We continue to recommend physical therapy for right piriformis syndrome, lumbar spondylosis without myelopathy and ulna/median neuropathy, to be continued after discharge - We also recommend pain management with Dr. Kumar - Her CT cerivcal spine appears grossly unremarkable for any central or foraminal stenosis - EMG/NCS in upper extremities for evaluation of ulnar/median neuropathy (outpatient) - We recommend outpatient evaluation by orthopedics for median/ulnar neuropathy - We discussed Ms. Calvin's current insurance situation with the unit's heel caser, and she will see to it that a social insurance analyst and nurse navigator meet with Ms. Calvin and assist her in evaluating her insurance options and assisting her in obtaining what she needs - We are happy to see Ms. Calvin as an outpatient should her insurance allow it. We reinforced that we are always here for her should she need anything. Helena Serna, ЕКАТЕРИНА
--- OUTSIDE RECORDS SUMMARY | 2019-01-12 06:40 | XMS REPORT | Summary of Care ---
Author Author [facility] Organization [facility] Address Unknown Phone Unavailable Encounter AIDEE Best(TRAVIS) [id number] Date(s): 01/19/16 - 01/23/16 [facility] [address] [place] [address]- Discharge Disposition: Home Attending Physician: Gurjit Ray MD Admitting Physician: Gurjit Ray MD Vital Signs 1 2 3 Most recent to oldest [Reference Range]: 172.72 cm (01/19/16 2:19 PM) Height 97.7 DegF (01/23/16 11:23 AM) 98.4 DegF (01/23/16 7:57 AM) 97.6 DegF (01/23/16 3:59 AM) Temperature Oral [96.4-99.1 DegF] 119/80 mmHg (01/23/16 2:32 PM) 90/53 mmHg (01/23/16 11:23 AM) 145/82 mmHg *HI* (01/23/16 7:57 AM) Blood Pressure [90-140/60-90 mmHg] 14 BRMIN (01/23/16 11:23 AM) 14 BRMIN (01/23/16 7:57 AM) 16 BRMIN (01/23/16 3:59 AM) Respiratory Rate [14-20 BRMIN] 91 bpm (01/23/16 2:32 PM) 99 bpm (01/23/16 11:23 AM) 86 bpm (01/23/16 7:57 AM) Peripheral Pulse Rate [60-100 bpm] 60.455 kg (01/19/16 2:19 PM) Weight 20.27 m2 (01/19/16 2:19 PM) Body Mass Index Problem List Condition Effective Dates Status Health Status Informant Anxiety(Confirmed) Resolved Breast Active cancer(Confirmed) Clostridium Resolved difficile(Confirmed) Clostridium Active difficile(Confirmed) 1 Depression(Confirmed Resolved ) Hypertension(Confirm Resolved ed) 1Problem added by Discern Expert. Allergies, Adverse Reactions, Alerts Substance Reaction Severity Status NKDA Active Medications acetaminophen (ANES) Route: IV, Drug form: INJ, ONCE, Stop date: 01/20/16 9:16:00 Start Date: 01/20/16 Stop Date: 01/20/16 Status: Completed acetaminophen-hydrocodone 325 mg-10 mg oral tablet 1 tab, Route: PO, Drug Form: TAB, Dosing Weight 60.455, kg, Q6H, PRN Pain Score 4-6, Start date: 01/19/16 22:06:00, Duration: 30 day, Stop date: 02/18/16 22:05: 00 Notes: Do not exceed 4gm/day of acetaminophen. (Same as: Koloa 325/10) Start Date: 01/19/16 Stop Date: 01/20/16 Status: Discontinued amitriptyline 50 mg, 1 tab, Route: PO, Drug form: TAB, Bedtime, Dosing Weight 60.455, kg, Star t date: 01/20/16 21:00:00, Duration: 30 day, Stop date: 02/18/16 21:00:00 Notes: (Same as: Elavil) Start Date: 01/20/16 Stop Date: 01/23/16 Status: Discontinued amitriptyline 50 mg oral tablet 50 mg=1 tab, PO, Bedtime Start Date: 01/19/16 Status: Ordered amLODIPine 5 mg, 1 tab, Route: PO, Drug form: TAB, Daily, Dosing Weight 60.455, kg, Start d ate: 01/20/16 9:00:00, Duration: 30 day, Stop date: 02/18/16 9:00:00 Notes: (Same as: Norvasc) Start Date: 01/20/16 Stop Date: 01/23/16 Status: Discontinued amLODIPine 5 mg oral tablet 5 mg=1 tab, PO, Daily Start Date: 01/19/16 Status: Ordered Ancef 1 gm, 100 mL, Route: IVPB, Drug form: INJ, [id number], Dosing Weight 60.455, kg, Sta rt date: 01/20/16 8:00:00, Stop date: 02/19/16 0:00:00 Start Date: 01/20/16 Stop Date: 01/23/16 Status: Discontinued ANES acetaminophen-hydrocodone 325 mg-10 mg oral tablet 1 tab, PO, Q6H, PRN Pain Score 4-6 Start Date: 01/19/16 Status: Ordered ceFAZolin (ANES) Route: IV, Drug form: INJ, ONCE, Stop date: 01/20/16 8:11:00 Start Date: 01/20/16 Stop Date: 01/20/16 Status: Completed Dilaudid 2 mg, 2 mL, Route: IV, Drug form: INJ, Q3H, Dosing Weight 60.455, kg, PRN Pain S core 7-10, Start date: 01/20/16 19:04:00, Duration: 30 day, Stop date: 02/19/16 19:03:00 Start Date: 01/20/16 Stop Date: 01/21/16 Status: Discontinued Dilaudid 0.5 mg, 0.5 mL, Route: IV, Drug form: INJ, Q4H, Dosing Weight 60.455, kg, PRN Pa in Score 6-10, Start date: 01/19/16 20:52:00, Duration: 30 day, Stop date: 02/17 20:51:00 Start Date: 01/19/16 Stop Date: 01/20/16 Status: Discontinued Dilaudid 2 mg, 1 mL, Route: IV, Drug form: SOLN, Q4H, Dosing Weight 60.455, kg, PRN Pain Score 7-10, Start date: 01/21/16 15:34:00, Duration: 30 day, Stop date: 02/20/16 15:33:00 Notes: Same as: Dilaudid Start Date: 01/21/16 Stop Date: 01/21/16 Status: Discontinued Dilaudid 1 mg, 1 mL, Route: IV, Drug form: INJ, Q4H, Dosing Weight 60.455, kg, PRN Pain S core 7-10, Start date: 01/20/16 7:43:00, Duration: 3 day, Stop date: 01/23/16 7: 42:00 Start Date: 01/20/16 Stop Date: 01/20/16 Status: Discontinued Dilaudid 0.5 mg, Route: IVP, ONCE, Dosing Weight 60.455, kg, Priority: STAT, Start date: 01/19/16 15:29:00, Stop date: 01/19/16 15:29:00 Start Date: 01/19/16 Stop Date: 01/19/16 Status: Completed Dilaudid 1 mg, 1 mL, Route: IV, Drug form: INJ, Q3H, Dosing Weight 60.455, kg, PRN Pain S core 7-10, Start date: 01/20/16 10:20:00, Duration: 30 day, Stop date: 02/19/16 10:19:00 Start Date: 01/20/16 Stop Date: 01/20/16 Status: Discontinued enoxaparin 40 mg, 0.4 mL, Route: SUB-Q, Drug form: INJ, [id number], Dosing Weight 60.455, kg, Start date: 01/20/16 8:00:00, Duration: 30 day, Stop date: 02/17/16 21:00:00 Notes: (Same as: Lovenox) Start Date: 01/20/16 Stop Date: 01/23/16 Status: Discontinued fentaNYL (ANES) Route: IV, Drug form: INJ, ONCE, Stop date: 01/20/16 8:36:00 Start Date: 01/20/16 Stop Date: 01/20/16 Status: Completed fentaNYL (ANES) Route: IV, Drug form: INJ, ONCE, Stop date: 01/20/16 8:11:00 Start Date: 01/20/16 Stop Date: 01/20/16 Status: Completed hydromorphone 2 mg, 2 mL, Route: IVP, Drug form: INJ, Q4H, PRN Pain Score 7-10, Start date: 17:39:00, Duration: 30 day, Stop date: 02/20/16 17:38:00 Start Date: 01/21/16 Stop Date: 01/23/16 Status: Discontinued hydromorphone (ANES) Route: IV, Drug form: INJ, ONCE, Stop date: 01/20/16 9:16:00 Start Date: 01/20/16 Stop Date: 01/20/16 Status: Completed ketOROLAC (ANES) IV, ONCE Start Date: 01/20/16 Stop Date: 01/20/16 Status: Completed labetalol (ANES) Route: IV, Drug form: INJ, ONCE, Stop date: 01/20/16 9:24:00 Start Date: 01/20/16 Stop Date: 01/20/16 Status: Completed Lactated Ringers Injection IV (ANES) (ANES) Route: IV, Total Volume: 1,000, Start date: 01/20/16 7:23:00, Stop date: 6 8:23:00 Start Date: 01/20/16 Stop Date: 01/20/16 Status: Completed letrozole 2.5 mg, 1 tab, Route: PO, Drug form: TAB, Daily, Dosing Weight 60.455, kg, Start date: 01/20/16 9:00:00, Duration: 30 day, Stop date: 02/18/16 9:00:00 Notes: Chemotherapy agent/Handle with cautionWASTE: F/P - Black; E - Yellow (Sa me as:Femara) Start Date: 01/20/16 Stop Date: 01/23/16 Status: Discontinued lisinopril 40 mg, 2 tab, Route: PO, Drug form: TAB, Daily, Dosing Weight 60.455, kg, Start date: 01/20/16 9:00:00, Duration: 30 day, Stop date: 02/18/16 9:00:00 Notes: (Same as: Prinivil, Zestril) Start Date: 01/20/16 Stop Date: 01/23/16 Status: Discontinued lisinopril 40 mg oral tablet 40 mg=1 tab, PO, Daily Start Date: 01/19/16 Status: Ordered metoprolol tartrate 50 mg, 1 tab, Route: PO, Drug form: TAB, Q12H, Dosing Weight 60.455, kg, Start d ate: 01/19/16 22:15:00, Duration: 30 day, Stop date: 02/18/16 21:00:00 Notes: (Same as: Lopressor) Start Date: 01/19/16 Stop Date: 01/23/16 Status: Discontinued Metoprolol Tartrate 50 mg oral tablet 50 mg=1 tab, PO, BID Start Date: 01/19/16 Status: Ordered midazolam (ANES) Route: IV, Drug form: SOLN, ONCE, Stop date: 01/20/16 8:36:00 Start Date: 01/20/16 Stop Date: 01/20/16 Status: Completed morphine Sulfate 2 mg, Route: IVP, Drug form: INJ, ONCE, Dosing Weight 60.455, kg, Priority: STAT , Start date: 01/19/16 16:00:00, Stop date: 01/19/16 16:00:00 Start Date: 01/19/16 Stop Date: 01/19/16 Status: Completed morphine Sulfate 4 mg, 2 mL, Route: IVP, Drug form: INJ, Q3H, Dosing Weight 60.455, kg, PRN Pain Score 7-10, Start date: 01/21/16 9:32:00, Duration: 30 day, Stop date: 02/20/16 9:31:00 Notes: (Same as:MORPhine Sulfate) Start Date: 01/21/16 Stop Date: 01/21/16 Status: Discontinued morphine Sulfate 6 mg, 3 mL, Route: IVP, Drug form: INJ, Q4H, Dosing Weight 60.455, kg, PRN Pain Score 6-10, Start date: 01/20/16 4:43:00, Duration: 30 day, Stop date: 02/19/16 4:42:00 Notes: (Same as:MORPhine Sulfate) Start Date: 01/20/16 Stop Date: 01/20/16 Status: Discontinued morphine Sulfate 2 mg, 1 mL, Route: IVP, Drug form: INJ, Q4H, Dosing Weight 60.455, kg, PRN Pain Score 1-3, Start date: 01/20/16 4:43:00, Duration: 30 day, Stop date: 02/19/16 4 :42:00 Notes: (Same as:MORPhine Sulfate) Start Date: 01/20/16 Stop Date: 01/20/16 Status: Discontinued morphine Sulfate 4 mg, 2 mL, Route: IVP, Drug form: INJ, Q4H, Dosing Weight 60.455, kg, PRN Pain Score 4-6, Priority: STAT, Start date: 01/20/16 4:44:00, Duration: 30 day, Stop date: 02/19/16 4:43:00 Notes: (Same as:MORPhine Sulfate) Start Date: 01/20/16 Stop Date: 01/20/16 Status: Discontinued morphine Sulfate 4 mg, Route: IVP, Drug form: INJ, ONCE, Dosing Weight 60.455, kg, Priority: STAT , Start date: 01/19/16 16:56:00, Stop date: 01/19/16 16:56:00 Start Date: 01/19/16 Stop Date: 01/19/16 Status: Completed morphine Sulfate 4 mg, 2 mL, Route: IVP, Drug form: INJ, ONCE, Dosing Weight 60.455, kg, Priority : STAT, Start date: 01/19/16 14:45:00, Stop date: 01/19/16 14:45:00 Notes: (Same as:MORPhine Sulfate) Start Date: 01/19/16 Stop Date: 01/19/16 Status: Completed MS Contin 15 mg oral tablet, extended release 15 mg=1 tab, PO, QID, PRN Pain Score 1-5, # 20 tab, 0 Refill(s), given to patien t Start Date: 01/23/16 Status: Ordered Koloa 10/325 oral tablet 1 tab, Route: PO, Drug Form: TAB, Dosing Weight 60.455, kg, Q4H, PRN Pain Score 1-5, Start date: 01/20/16 11:40:00, Duration: 30 day, Stop date: 02/19/16 11:39: 00 Notes: Do not exceed 4gm/day of acetaminophen. (Same as: Koloa 325/10) Start Date: 01/20/16 Stop Date: 01/23/16 Status: Discontinued Koloa 10/325 oral tablet 1 tab, Route: PO, Drug Form: TAB, Dosing Weight 60.455, kg, Q6H, PRN Pain Score 4-6, Start date: 01/20/16 10:19:00, Duration: 30 day, Stop date: 02/19/16 10:18: 00 Notes: Do not exceed 4gm/day of acetaminophen. (Same as: Koloa 325/10) Start Date: 01/20/16 Stop Date: 01/20/16 Status: Discontinued Koloa 7.5/325 oral tablet 2 tab, Route: PO, Drug Form: TAB, Dosing Weight 60.455, kg, Q4H, PRN Pain Score 7-10, Start date: 01/20/16 7:43:00, Duration: 30 day, Stop date: 02/19/16 7:42:0 0 Notes: Same as Koloa 325-7.5mg Do not exceed 4gm/day of acetaminophen. Start Date: 01/20/16 Stop Date: 01/20/16 Status: Discontinued Koloa 7.5/325 oral tablet 1 tab, Route: PO, Drug Form: TAB, Dosing Weight 60.455, kg, Q4H, PRN Pain Score 4-6, Start date: 01/20/16 7:43:00, Duration: 30 day, Stop date: 02/19/16 7:42:00 Notes: Same as Koloa 325-7.5mg Do not exceed 4gm/day of acetaminophen. Start Date: 01/20/16 Stop Date: 01/20/16 Status: Discontinued ondansetron 8 mg, 2 tab, Route: PO, Drug form: TABDIS, Q8H, Dosing Weight 60.455, kg, PRN as needed for nausea/vomiting, Start date: 01/19/16 22:07:00, Duration: 30 day, St op date: 02/18/16 22:06:00 Notes: (Same as: Cullen ODT) Start Date: 01/19/16 Stop Date: 01/23/16 Status: Discontinued ondansetron (ANES) Route: IV, Drug form: INJ, ONCE, Stop date: 01/20/16 8:41:00 Start Date: 01/20/16 Stop Date: 01/20/16 Status: Completed ondansetron 8 mg oral tablet, disintegrating 8 mg=1 tab, PO, Q8H, PRN Nausea | PRN nausea, Dissolve under tongue Start Date: 01/19/16 Status: Ordered oxyCONTIN 10 mg, 1 tab, Route: PO, Drug form: ERTAB, Q12H, Dosing Weight 60.455, kg, Start date: 01/23/16 9:00:00, Duration: 30 day, Stop date: 02/21/16 21:00:00 Notes: Do not crush or chew.(Same as: OxyContin) Start Date: 01/23/16 Stop Date: 01/23/16 Status: Discontinued pantoprazole 40 mg, 1 tab, Route: PO, Drug form: ECTAB, Daily, Dosing Weight 60.455, kg, Star t date: 01/20/16 9:00:00, Duration: 30 day, Stop date: 02/18/16 9:00:00 Notes: Tablet should not be chewed or crushed.(Same as: Protonix) Start Date: 01/20/16 Stop Date: 01/23/16 Status: Discontinued pantoprazole 40 mg oral enteric coated tablet 40 mg=1 tab, PO, Daily Start Date: 01/19/16 Status: Ordered Percocet 10/325 oral tablet 1 tab, Route: PO, Drug Form: TAB, Dosing Weight 60.455, kg, Q6H, PRN Pain Score 6-10, Start date: 01/23/16 8:44:00, Duration: 30 day, Stop date: 02/22/16 8:43:0 0 Notes: Do not exceed 4gm/day of acetaminophen. (Same as: Percocet-10/325) Start Date: 01/23/16 Stop Date: 01/23/16 Status: Discontinued pneumococcal 23-valent vaccine 0.5 mL, Route: IM, Drug Form: INJ, Daily, Start date: 01/22/16 9:00:00, Stop nyla e: 01/22/16 12:30:00 Notes: (Same as: Pneumovax 23) Refrigerate Start Date: 01/22/16 Stop Date: 01/22/16 Status: Completed propofol 60 mg, Route: IV, ONCE, Dosing Weight 60.455, kg, Start date: 01/19/16 15:53:00, Stop date: 01/19/16 15:53:00 Start Date: 01/19/16 Stop Date: 01/19/16 Status: Completed propofol 40 mg, Route: IV, ONCE, Dosing Weight 60.455, kg, Start date: 01/19/16 15:22:00, Stop date: 01/19/16 15:22:00 Start Date: 01/19/16 Stop Date: 01/19/16 Status: Completed propofol (ANES) Route: IV, Drug form: INJ, ONCE, Stop date: 01/20/16 8:21:00 Start Date: 01/20/16 Stop Date: 01/20/16 Status: Completed Saline Flush 0.9% 10 mL, Route: IVP, Drug Form: INJ, Dosing Weight 60.455, kg, PRN, PRN Line Flush , Start date: 01/19/16 18:58:00, Duration: 30 day, Stop date: 02/18/16 18:57:00 Notes: (Same as: BD Posiflush) Start Date: 01/19/16 Stop Date: 01/23/16 Status: Discontinued Saline Flush 0.9% 10 ml, Route: IVP, Drug Form: INJ, Dosing Weight 60.455, kg, PRN, PRN Line Flush , Start date: 01/19/16 18:57:00, Duration: 30 day, Stop date: 02/18/16 18:56:00 Notes: (Same as: BD Posiflush) Start Date: 01/19/16 Stop Date: 01/23/16 Status: Discontinued Saline Flush 0.9% 10 ml, Route: IVP, Drug Form: INJ, Dosing Weight 60.455, kg, Q12H, Start date: 0 01/19/16 21:00:00, Duration: 30 day, Stop date: 02/18/16 9:00:00 Notes: (Same as: BD Posiflush) Start Date: 01/19/16 Stop Date: 01/23/16 Status: Discontinued Saline Flush 0.9% 10 ml, Route: IVP, Drug Form: INJ, Dosing Weight 60.455, kg, Q12H, Start date: 0 01/19/16 21:00:00, Duration: 30 day, Stop date: 02/18/16 9:00:00 Start Date: 01/19/16 Stop Date: 01/19/16 Status: Canceled Saline Flush 0.9% 10 ml, Route: IVP, Drug Form: INJ, Dosing Weight 60.455, kg, PRN, PRN Line Flush , Start date: 01/19/16 18:49:00, Duration: 30 day, Stop date: 02/18/16 18:48:00 Start Date: 01/19/16 Stop Date: 01/19/16 Status: Discontinued Saline Flush 0.9% 10 mL, Route: IVP, Drug Form: INJ, Dosing Weight 60.455, kg, PRN, PRN Line Flush , Start date: 01/19/16 15:23:00, Duration: 30 day, Stop date: 02/18/16 15:22:00 Notes: (Same as: BD Posiflush) Start Date: 01/19/16 Stop Date: 01/19/16 Status: Discontinued temazepam 15 mg, 1 cap, Route: PO, Drug form: CAP, Bedtime, Dosing Weight 60.455, kg, PRN as needed for sleep, Start date: 01/20/16 22:39:00, Duration: 30 day, Stop date: 02/19/16 22:38:00 Notes: (Same As: Restoril) Start Date: 01/20/16 Stop Date: 01/23/16 Status: Discontinued Valium 1 mg, 0.2 mL, Route: IVP, Drug form: INJ, ONCE, Dosing Weight 60.455, kg, PRN An xiety, Priority: STAT, Start date: 01/20/16 4:42:00 Notes: (Same as: Valium)WASTE: F/P - Black; E - White/Blue Start Date: 01/20/16 Stop Date: 01/23/16 Status: Discontinued Zofran 4 mg, 2 mL, Route: IV, Drug form: INJ, Q4H, Dosing Weight 60.455, kg, Start date : 01/20/16 8:00:00, Duration: 30 day, Stop date: 02/19/16 4:00:00 Notes: (Same as: Zofran) MEDICATION WASTE Product Size: 4 mgProduct Was haven: ___ mg Start Date: 01/20/16 Stop Date: 01/23/16 Status: Discontinued zolpidem 5 mg, 1 tab, Route: PO, Drug form: TAB, Bedtime, Dosing Weight 60.455, kg, PRN S leep, Start date: 01/19/16 22:07:00, Duration: 30 day, Stop date: 02/18/16 22:06 :00 Notes: (Same As: Ambien) Start Date: 01/19/16 Stop Date: 01/23/16 Status: Discontinued zolpidem 5 mg oral tablet 5 mg=1 tab, PO, Bedtime, PRN Sleep Start Date: 01/19/16 Status: Ordered Results ELECTROLYTES 1 2 3 Most recent to oldest [Reference Range]: 133 mEq/L *LOW* (01/21/16 4:13 AM) 133 mEq/L *LOW* (01/20/16 4:10 AM) 136 mEq/L (01/19/16 4:15 PM) Sodium Lvl [135-145 mEq/L] 4.0 mEq/L (01/21/16 4:13 AM) 4.7 mEq/L (01/20/16 4:10 AM) 4.3 mEq/L (01/19/16 4:15 PM) Potassium Lvl [3.5-5.1 mEq/L] 97 mEq/L (01/21/16 4:13 AM) 98 mEq/L (01/20/16 4:10 AM) 100 mEq/L (01/19/16 4:15 PM) Chloride Lvl [95-109 mEq/L] 26 mEq/L (01/21/16 4:13 AM) 26 mEq/L (01/20/16 4:10 AM) 29 mEq/L (01/19/16 4:15 PM) CO2 [24-32 mEq/L] 14.0 mEq/L (01/21/16 4:13 AM) 13.7 mEq/L (01/20/16 4:10 AM) 11.3 mEq/L (01/19/16 4:15 PM) AGAP [10.0-20.0 mEq/L] CHEM PANEL 1 2 3 Most recent to oldest [Reference Range]: 0.62 mg/dL (01/21/16 4:13 AM) 0.60 mg/dL (01/20/16 4:10 AM) 0.57 mg/dL (01/19/16 4:15 PM) Creatinine Lvl [0.50-1.40 mg/dL] 102 mL/min/1.73m2 1 *NA* (01/21/16 4:13 AM) 103 mL/min/1.73m2 2 *NA* (01/20/16 4:10 AM) 105 mL/min/1.73m2 3 *NA* (01/19/16 4:15 PM) eGFR 8 mg/dL (01/21/16 4:13 AM) 5 mg/dL *LOW* (01/20/16 4:10 AM) 4 mg/dL *LOW* (01/19/16 4:15 PM) BUN [7-22 mg/dL] 13 (01/21/16 4:13 AM) 7 (01/19/16 4:15 PM) B/C Ratio [6-25] 94 mg/dL (01/21/16 4:13 AM) 107 mg/dL *HI* (01/20/16 4:10 AM) 102 mg/dL *HI* (01/19/16 4:15 PM) Glucose Lvl [70-99 mg/dL] 5.4 g/dL *LOW* (01/21/16 4:13 AM) 6.1 g/dL *LOW* (01/19/16 4:15 PM) Total Protein [6.4-8.4 g/dL] 2.7 g/dL *LOW* (01/21/16 4:13 AM) 3.1 g/dL *LOW* (01/19/16 4:15 PM) Albumin Lvl [3.5-5.0 g/dL] 2.7 g/dL (01/21/16 4:13 AM) 3.0 g/dL (01/19/16 4:15 PM) Globulin [2.0-4.0 g/dL] 1.0 (01/21/16 4:13 AM) 1.0 (01/19/16 4:15 PM) A/G Ratio [0.7-1.6] 7.9 mg/dL *LOW* (01/21/16 4:13 AM) 8.7 mg/dL (01/20/16 4:10 AM) 8.3 mg/dL *LOW* (01/19/16 4:15 PM) Calcium Lvl [8.5-10.5 mg/dL] 17 unit/L (01/21/16 4:13 AM) 26 unit/L (01/19/16 4:15 PM) ALT [0-65 unit/L] 22 unit/L (01/21/16 4:13 AM) 38 unit/L *HI* (01/19/16 4:15 PM) AST [0-37 unit/L] 122 unit/L (01/21/16 4:13 AM) 130 unit/L (01/19/16 4:15 PM) Alk Phos [39-136 unit/L] 0.9 mg/dL (01/21/16 4:13 AM) 0.2 mg/dL (01/19/16 4:15 PM) Bili Total [0.2-1.3 mg/dL] 1Result Comment: The eGFR is calculated using [...] be mul tiplied by the estimated BMI. CARDIAC ENZYMES 1 2 3 Most recent to oldest [Reference Range]: 116 unit/L (01/20/16 4:10 AM) 136 unit/L (01/19/16 10:41 PM) 78 unit/L (01/19/16 4:15 PM) Total CK [12-191 unit/L] 2.2 ng/mL (01/20/16 4:10 AM) 3.2 ng/mL (01/19/16 10:41 PM) CK MB [0.5-3.6 ng/mL] 1.9 (01/20/16 4:10 AM) 2.4 (01/19/16 10:41 PM) CK MB Index [0.0-2.5] <0.02 ng/mL (01/20/16 4:10 AM) <0.02 ng/mL (01/19/16 10:41 PM) <0.02 ng/mL (01/19/16 4:15 PM) Troponin-I [0.00-0.40 ng/mL] DRUG SCREEN 1 2 3 Most recent to oldest [Reference Range]: Negative *NA* (01/19/16 4:16 PM) U Methadone Scr [Negative] Negative *NA* (01/19/16 4:16 PM) U Propoxyph Scr [Negative] Negative *NA* (01/19/16 4:16 PM) U Amph Scr [Negative] Negative *NA* (01/19/16 4:16 PM) U Sasha Scr [Negative] Negative *NA* (01/19/16 4:16 PM) U Benzodia Scr [Negative] Negative *NA* (01/19/16 4:16 PM) U Cocaine Scr [Negative] Positive *ABN* (01/19/16 4:16 PM) U Opiate Scr [Negative] Negative *NA* (01/19/16 4:16 PM) U Phencyc Scr [Negative] Negative *NA* (01/19/16 4:16 PM) U Cannab Scr [Negative] See Note (01/19/16 4:16 PM) UDS Note URINE AND STOOL 1 2 3 Most recent to oldest [Reference Range]: Clear (01/19/16 4:16 PM) UA Turbidity [Clear] Colorless *NA* (01/19/16 4:16 PM) UA Color 7.0 (01/19/16 4:16 PM) UA pH [5.0-8.0] 1.003 (01/19/16 4:16 PM) UA Spec Grav [<=1.030] Negative mg/dL *NA* (01/19/16 4:16 PM) UA Glucose [Negative mg/dL] Negative (01/19/16 4:16 PM) UA Blood [Negative] Negative mg/dL *NA* (01/19/16 4:16 PM) UA Ketones [Negative mg/dL] Negative mg/dL (01/19/16 4:16 PM) UA Protein [Negative mg/dL] <=1.0 mg/dL *NA* (01/19/16 4:16 PM) UA Urobilinogen [0.1-1.0 mg/dL] Negative *NA* (01/19/16 4:16 PM) UA Bili [Negative] Negative (01/19/16 4:16 PM) UA Leuk Est [Negative] Negative (01/19/16 4:16 PM) UA Nitrite [Negative] None Seen *NA* (01/19/16 4:16 PM) UA Sq Epi Few /LPF *NA* (01/19/16 4:16 PM) UA Mucus [None Seen /LPF] HEMATOLOGY 1 2 3 Most recent to oldest [Reference Range]: 6.1 K/CMM (01/21/16 4:13 AM) 5.0 K/CMM (01/20/16 4:10 AM) 4.2 K/CMM (01/19/16 4:15 PM) WBC [3.7-10.4 K/CMM] 3.86 M/CMM *LOW* (01/21/16 4:13 AM) 4.48 M/CMM (01/20/16 4:10 AM) 4.44 M/CMM (01/19/16 4:15 PM) RBC [4.20-5.40 M/CMM] 12.9 g/dL (01/21/16 4:13 AM) 14.7 g/dL (01/20/16 4:10 AM) 14.7 g/dL (01/19/16 4:15 PM) Hgb [12.0-16.0 g/dL] 38.5 % (01/21/16 4:13 AM) 44.4 % (01/20/16 4:10 AM) 44.5 % (01/19/16 4:15 PM) Hct [36.0-48.0 %] 99.9 fL *HI* (01/21/16 4:13 AM) 99.2 fL *HI* (01/20/16 4:10 AM) 100.3 fL *HI* (01/19/16 4:15 PM) MCV [80.0-98.0 fL] 33.5 pg *HI* (01/21/16 4:13 AM) 32.8 pg *HI* (01/20/16 4:10 AM) 33.2 pg *HI* (01/19/16 4:15 PM) MCH [27.0-31.0 pg] 33.5 g/dL (01/21/16 4:13 AM) 33.1 g/dL (01/20/16 4:10 AM) 33.1 g/dL (01/19/16 4:15 PM) MCHC [32.0-36.0 g/dL] 15.3 % *HI* (01/21/16 4:13 AM) 15.5 % *HI* (01/20/16 4:10 AM) 15.3 % *HI* (01/19/16 4:15 PM) RDW [11.5-14.5 %] 237 K/CMM (01/21/16 4:13 AM) 259 K/CMM (01/20/16 4:10 AM) 262 K/CMM (01/19/16 4:15 PM) Platelet [133-450 K/CMM] 7.6 fL (01/21/16 4:13 AM) 7.1 fL *LOW* (01/20/16 4:10 AM) 6.8 fL *LOW* (01/19/16 4:15 PM) MPV [7.4-10.4 fL] 82.3 % *HI* (01/21/16 4:13 AM) 68.6 % (01/20/16 4:10 AM) 66.2 % (01/19/16 4:15 PM) Segs [45.0-75.0 %] 8.5 % *LOW* (01/21/16 4:13 AM) 19.5 % *LOW* (01/20/16 4:10 AM) 21.8 % (01/19/16 4:15 PM) Lymphocytes [20.0-40.0 %] 7.2 % (01/21/16 4:13 AM) 10.1 % (01/20/16 4:10 AM) 8.0 % (01/19/16 4:15 PM) Monocytes [2.0-12.0 %] 1.4 % (01/21/16 4:13 AM) 1.1 % (01/20/16 4:10 AM) 2.7 % (01/19/16 4:15 PM) Eosinophils [0.0-4.0 %] 0.6 % (01/21/16 4:13 AM) 0.7 % (01/20/16 4:10 AM) 1.3 % *HI* (01/19/16 4:15 PM) Basophils [0.0-1.0 %] 5.0 K/CMM (01/21/16 4:13 AM) 3.5 K/CMM (01/20/16 4:10 AM) 2.8 K/CMM (01/19/16 4:15 PM) Segs-Bands # [1.5-8.1 K/CMM] 0.5 K/CMM *LOW* (01/21/16 4:13 AM) 1.0 K/CMM (01/20/16 4:10 AM) 0.9 K/CMM *LOW* (01/19/16 4:15 PM) Lymphocytes # [1.0-5.5 K/CMM] 0.4 K/CMM (01/21/16 4:13 AM) 0.5 K/CMM (01/20/16 4:10 AM) 0.3 K/CMM (01/19/16 4:15 PM) Monocytes # [0.0-0.8 K/CMM] 0.1 K/CMM (01/21/16 4:13 AM) 0.1 K/CMM (01/20/16 4:10 AM) 0.1 K/CMM (01/19/16 4:15 PM) Eosinophils # [0.0-0.5 K/CMM] 0.1 K/CMM (01/19/16 4:15 PM) Basophils # [0.0-0.2 K/CMM] 1+ *ABN* (01/21/16 4:13 AM) 1+ *ABN* (01/20/16 4:10 AM) 1+ *ABN* (01/19/16 4:15 PM) Macrocyte [None Seen] 13.4 seconds (01/19/16 4:15 PM) PT [12.0-14.7 seconds] 0.99 (01/19/16 4:15 PM) INR [0.85-1.17] 28.1 seconds (01/19/16 4:15 PM) PTT [22.9-35.8 seconds] Immunizations Vaccine Date Refusal Reason influenza virus vaccine, inactivated 08/10/14 pneumococcal 23-valent vaccine 01/22/16 Procedures Procedure Date Related Diagnosis Body Site Mastectomy1 Operation 1Bilateral Social History Social History Type Response Alcohol Current, Frequency: 1-2 times per week. Smoking Status Former smoker; Exposure to Tobacco Smoke None; Cigarette Smoking Last 365 Days No; Reg Smoking Cessation Counseling No Assessment and Plan Extracted from: Title: History & Physical Author: Edvin Lanza MD Date: 01/20/16 History & Physical [facility] Hospitalist CHIEF COMPLAINT" syncope with LLE pain Asked to see patient per Orthopedics Surgery Patient presents to ER after sustaining a left tib/fib fracture after fainting. Patient states after previous cardiac event she gets dizzy and lightheaded. Patient states she was walking outside and had opened her door when she passed out. She believes she was unconscience "seconds". She denies N/V. No chest pain or bladder or bowel incontinence. Constitutional Symptoms: _ fever, _ weight loss, _ weight gain, _ fatigue, _ malaise Eyes: _ diplopia, _ blurred vision, _ redness, _ discharge, _ loss of vision Ears, Nose, Mouth, Throat: _ dysphagia, _ odynophagia, _ otalgia, _ deafness, _ rhinorrhea Cardiovascular: _ chest pain, _ SOB, _ SNYDER, _ orthopnea, _ PND, _ poor exercise tolerance, _ palpitations Respiratory: _ same as CVS, _ cough, _ hemoptysis Gastrointestinal: _ NVD, _ BPR, _ dark stool, _ constipation, _ abdominal pain Genitourinary: _ dysuria, _ frequency, _ urgency, _ nocturia, _ incontinence Musculoskeletal: _ arthralgia, _ myalgia, _ stiffness Integumentary (skin and/or breast): _ rash, _ hives, _ breast pain, _ mass, _ nipple dc Neurological: _ headache, _ seizure, _ tingling, _ numbness Psychiatric: _ anxiety, _ depression, _ insomnia Endocrine: _ polyuria, _ polydipsia, _ fatigue, _ weight loss, _ weight gain, _ cold or heat intolerance, _ palpitations Hematologic/Lymphatic: _ bleeding, _ bruising, _ edema, _ lumps (axilla groin neck) Allergic/Immunologic: _ rash, _ allergies, _ fever, _ chills All other systems reviewed and are negative. Has seen Manager Client Service Dr. Darwin Mcdowell PAST MEDICAL HISTORY Hypertension Depression Anxiety Breast cancer s/p XRT and chemotherapy h/o Clostridium difficile - not curerntly with diarrhea h/o cardiac arrest after breast reconstructive surgery No results for Maternal History Ab1 PAST SURGICAL HISTORY Bilateral mastectomy Bilateral breast implants and then removed Re-insertion breast implants with reconstruction with patients muscles/tissue Port-a-cath insertion removal Tonsillectomy MEDICATIONS See below ALLERGIES: NKDA SOCIAL HISTORY Alcohol Details: Current, Frequency: 1-2 times per week. Tobacco Details: Use: Former smoker. Tobacco smoke exposure: None. Did the Patient Smoke Cigarettes Anytime During the Last 365 Days? No. Cessation Counseling Provided? No. Details: Use: Former smoker. Type: Cigarettes. 1 per day. 25 year(s). Total pack years: 25. quit January 2015 Denies drugs Previously Employed with [employer] FAMILY HISTORY Paternal aunt bilateral mastectomy and Paternal maternal history "lots of cancer" Father: Cancer Mother: Hypertension PHYSICAL EXAMINATION VitalsTmp(F)[id number] 01/19 01:3698.6---[id number]--- 01/18 21:2998.6229251/[id number]--- 01/18 18:5098.231811/[id number]--- 01/18 18:0198.253943/[id number]--- 01/18 16:58----[id number]--- 24 Hr Tmax: 98.9F (37.17c) at 01/18 18:01Vital Signs are the last 5 in the past 48 hours. Constitutional pleasant female, verbose, anxious per her report - due to the pain Head: normocephalic, nontraumatic Eyes: sclera clear, conjunctiva normal with EOMI Ears: pinna normal Nose: patent nares Oropharynx: moist mucous membranes with normal oropharynx without exudate or erythema Neck: supple, no LAD Lungs: moving air well without wheezing, rhonci or rales Cardiovascular: normal S1S2 RRR without murmur Abdominal: soft, NT/ND with +bowel sounds in all quadrants Genitourinary: deferred Rectal: deferred Musculoskeletal: swellling and limited mobility in right knee due to contusion LLE immobilized and wrapped, toes pink with normal sensation Neurological AOx3, CNII-XII intact LABORATORY AND DIAGNOSTIC EVALUATIONS Labs (Last four charted values) WBC 4.2(JAN 18) Hgb 14.7(JAN 18) Hct 44.5(JAN 18) Plt 262(JAN 18) Na 136(JAN 18) K 4.3(JAN 18) CO2 29(JAN 18) Cl 100(JAN 18) Cr 0.57(JAN 18) BUN L 4(JAN 18) Glucose Random H 102(JAN 18) Ca L 8.3(JAN 18) PT 13.4(JAN 18) INR 0.99(JAN 18) PTT 28.1(JAN 18) Troponin <0.02(JAN 18)<0.02(JAN 18) CK MB 3.2(JAN 18) Total CK 136(JAN 18)78(JAN 18) IMPRESSION 55 year old with 1. Hypertension 2. Acute Distal fibula/tibia fracture 3. Syncope NOS 4. Intractable Pain due to #2 5. Anxiety PLAN 1. The patient is admitted to a medical-surgical telemetry bed on Orthopedic unit 2. Place on iv pain medication and given 1x dose medication for anxiety Patient anxious about care plan and still with significant amount of pain. Much of her anxiety exist from complications around her breast reconstructive surgery and previous "cardiac arrest" of which details are not available at this time to this account supervisor While she denies chest pain and palpitations , it is unclear etiology of her syncope. her ECG does not demonstrate acute block or dysrhythmia and she is on telemetry without event Would defer to Cardiology for cardiac clearance preoperatively but as discussed with Orthopedics if compartment syndrome with emergent intervention warranted, she will need operative care more emergent 3. control BP 4. Cardiology and Orthopedics consulted and will follow their recommendations as they become available Please see orders for further details on the initial management of this patient. I reviewed available records. Exam and evaluation took 35 minutes with 50% of my time spent on care and consultation. The patients length of stay on our service should be more than 2 midnights. The patients disposition post discharge should be home.. Code status: full DVT prophylaxis: per recommendations per Orthopedics given surgery MEDICATIONS Medication List Active Medications Ordered acetaminophen-hydrocodone: 1 tab, PO, Q6H, PRN: Pain Score 4-6. amitriptyline: 50 mg, 1 tab, PO, Bedtime. amLODIPine: 5 mg, 1 tab, PO, Daily. hydromorphone: 0.5 mg, 0.5 mL, IV, Q4H, PRN: Pain Score 6-10. letrozole: 2.5 mg, 1 tab, PO, Daily. lisinopril: 40 mg, 2 tab, PO, Daily. metoprolol: 50 mg, 1 tab, PO, Q12H. ondansetron: 8 mg, 2 tab, PO, Q8H, PRN: as needed for nausea/vomiting. pantoprazole: 40 mg, 1 tab, PO, Daily. sodium chloride: 10 ml, IVP, Q12H. sodium chloride: 10 ml, IVP, PRN, PRN: Line Flush. sodium chloride: 10 mL, IVP, PRN, PRN: Line Flush. zolpidem: 5 mg, 1 tab, PO, Bedtime, PRN: Sleep. Suspended acetaminophen-hydrocodone: 1 tab, PO, Q6H, PRN: Pain Score 4-6. amitriptyline: 50 mg, 1 tab, PO, Bedtime. amLODIPine: 5 mg, 1 tab, PO, Daily. letrozole: 2.5 mg, 1 tab, PO, Daily, 0 Refill(s). lisinopril: 40 mg, 1 tab, PO, Daily. metoprolol: 50 mg, 1 tab, PO, BID. ondansetron: 8 mg, 1 tab, PO, Q8H, Dissolve under tongue, PRN: Nausea | PRN nausea. pantoprazole: 40 mg, 1 tab, PO, Daily. zolpidem: 5 mg, 1 tab, PO, Bedtime, PRN: Sleep. Medications Inactivated in the Last 72 Hours acetaminophen-hydrocodone: 1 tab, PO, Q4H, 24 tab, PRN: for pain. Al hydroxide/Mg hydroxide/simethicone: 5 ml, PO, QID, 200 ml, PRN: for indigestion. diazepam: 0.5-1 tab, PO, Q6H, PRN: as needed for anxiety. diphenhydrAMINE: 25 mg, 10 mL, PO, QID, PRN: as needed for sore throat. escitalopram: 10 mg, 1 tab, PO, QAM, 30 tab. hydromorphone: 1 mg, 1 mL, PYXIS, ONCE. hydromorphone: 0.5 mg, IVP, ONCE. morphine Sulfate: 4 mg, 2 mL, PYXIS, ONCE. morphine Sulfate: 4 mg, 2 mL, IVP, ONCE. morphine Sulfate: 2 mg, IVP, ONCE. morphine Sulfate: 2 mg, 1 mL, PYXIS, ONCE. morphine Sulfate: 4 mg, IVP, ONCE. morphine Sulfate: 4 mg, 2 mL, PYXIS, ONCE. ondansetron: 4 mg, 1 tab, PO, Q6H, 10 tab, PRN: as needed for nausea/vomiting. propofol: 40 mg, IV, ONCE. propofol: 60 mg, IV, ONCE. sodium chloride: 10 mL, IVP, PRN, PRN: Line Flush. sodium chloride: 10 ml, IVP, PRN, PRN: Line Flush. sodium chloride: 10 ml, IVP, Q12H.
--- OUTSIDE RECORDS SUMMARY | 2019-01-12 06:40 | XMS REPORT | Summary of Care ---
Author Author [facility] Organization [facility] Address Unknown Phone Unavailable Encounter HQ Estephania(FIN) [id number] Date(s): 03/13/16 - 03/13/16 [facility] [address] [place] [address]- Discharge Disposition: Home Attending Physician: Art Ricardo MD Admitting Physician: Art Ricardo MD Referring Physician: Art Ricardo MD Vital Signs No [...] week. Smoking Status Former smoker; Type: Cigarettes; Tobacco use per day: 1; Number of years: 25; Total pack years: 25; Started at age: 1.0; Stopped at age: 1; Previous treatment: None; Ready to change: Yes; Concerns about tobacco use in household: Yes; Exposure to Tobacco Smoke None; Cigarette Smoking Last 365 Days Yes; Reg Smoking Cessation Counseling Yes Assessment and Plan No data available for this section
--- OUTSIDE RECORDS SUMMARY | 2019-01-12 06:40 | XMS REPORT | Summary of Care ---
Author Organization Unknown Address Unknown Phone Unavailable Encounter HQ Encntr_caty(FIN) [id number] Date(s): 05/03/14 - 05/03/14 [facility] [address] Physician Attending: Sneha Meraz MD Physician Admitting: Sneha Meraz MD Physician_Referring: Sneha Meraz MD Reason for Visit VOMITING, DEHYDRATION, DIARRHEA Problem List Condition Effective Dates Status Health [...]
--- OUTSIDE RECORDS SUMMARY | 2019-01-12 06:41 | XMS REPORT ---
Author Author Gurjit Ray Organization [employer] Address Unknown Phone Unavailable Care Team Providers Care Tufter Hand Name Role Phone Gurjit Ray CP Unavailable Allergies No Known Allergies Problems Problem Type Condition Code Onset Dates Condition Status Problem Other and unspecified hyperlipidemia E78.5 Active Problem Primary insomnia F51.01 Active Problem Drug-induced polyneuropathy G62.0 Active Assessment Tobacco abuse counseling Z71.6 Active Problem Essential hypertension I10 Active Problem Lumbago with sciatica, unspecified side M54.40 Active Problem Smoking F17.200 Active Problem Other chronic pain G89.29 Active Problem Other acute gastritis without hemorrhage K29.00 Active Problem Strickland''s esophagus without dysplasia K22.70 Active Problem Status post cholecystectomy Z90.49 Active Problem Idiopathic chronic pancreatitis K86.1 Active Medications Medication Code System Code Instructions Start Date End Date Status Dosage Chantix Starting Month [facility] 51718099030 0.5 MG X 11 & 1 MG X 42 Orally as directed Nov 12, 2017 Active as directed Results No Known Results Summary Purpose [employer] Submission
--- OUTSIDE RECORDS SUMMARY | 2019-01-12 06:41 | XMS REPORT ---
Author Author Gurjit Ray Organization [employer] Address Unknown Phone Unavailable Care Team Providers Care Detective Bureau Chief Name Role Phone Gurjit Ray CP Unavailable Allergies, Adverse Reactions, Alerts Substance Reaction Event Type N.K.D.A. Info Not Available Non Drug Allergy Problems Problem Type Condition Code Onset Dates Condition Status Problem Vasovagal syncope 780.2 Active Problem Cough variant asthma 493.82 Active Problem Essential hypertension I10 Active Problem Idiopathic chronic pancreatitis K86.1 Active Problem Other acute gastritis without hemorrhage K29.00 Active Problem Status post cholecystectomy Z90.49 Active Problem Drug-induced polyneuropathy G62.0 Active Problem Other and unspecified hyperlipidemia E78.5 Active Problem Strickland''s esophagus without dysplasia K22.70 Active Problem Primary insomnia F51.01 Active Assessment Traumatic hematoma of left upper arm, initial encounter S40.022A Active Assessment Smoking trying to quit Z72.0 Active Assessment Essential hypertension I10 Active Medications Medication Code System Code Instructions Start Date End Date Status Dosage Nexium [facility] 60246456288 40 mg Orally Once a day Active 1 capsule Promethazine-DM [facility] 56921912239 6.25-15 MG/5ML Orally every 8 hrs Dec 02, 2017 Active 5 ml as needed Creon [facility] 52744056300 78361 UNIT Orally Active not defined Femara [facility] 28887144653 2.5 MG Orally Once a day Active 1 tablet Methocarbamol [facility] [address]-35 Active not defined Albuterol Sulfate HFA [facility] [address]-86 108 (90 Base) MCG/ACT Inhalation every 12 hrs Dec 02, 2017 Active 2 puffs as needed Nitrofurantoin Monohyd Macro ND 86063937681 100 MG Orally every 12 hrs Active 1 capsule with food Lisinopril [facility] 13470130694 10 MG Orally Once a day Active 1 tablet Metoprolol Tartrate ND 60547875916 25 MG Orally once a day Active 1 tablet BuPROPion HCl [facility] 24330152939 75 MG Orally daily January 14, 2018 Active 1 tablet Acyclovir [facility] 43664648225 400 MG Orally four times a day (qid) Nov 12, 2017 Active 1 tablet Trazodone HCl [facility] 17162581887 100 mg Orally Once a day Sep 29, 2017 Active 1 tablet at bedtime as needed Zofran ODT [facility] 31111762116 4 MG Orally twice a day (bid) as needed (prn) Jul 14, 2017 Active 1 tablet on the tongue and allow to dissolve Chantix Starting Month Chris [facility] 56057310482 0.5 MG X 11 & 1 MG X 42 Orally as directed Nov 12, 2017 Active as directed Chantix Continuing Month Chris [facility] 73946418081 1 MG Orally Twice a day Dec 11, 2017 February 09, 2018 Active 1 tablet Trazodone HCl [facility] 34482258564 50 mg Orally Once a day Active 1 tablet at bedtime as needed Norvasc [facility] 66090198845 10 MG Orally Once a day Active 1 tablet Vital Signs Date/Time: January 14, 2018 BMI 22.55 Index Weight 144 lbs Height 67 in Temperature 96.6 F Blood Pressure Diastolic 82 mm Hg Blood Pressure Systolic 113 mm Hg Results No Known Results Summary Purpose [employer] Submission
--- OUTSIDE RECORDS SUMMARY | 2019-01-12 06:41 | XMS REPORT ---
Author Author Gurjit Ray Organization [employer] Address Unknown Phone Unavailable Care Team Providers Care Photography Professor Name Role Phone Gurjit Ray CP Unavailable Allergies, Adverse Reactions, Alerts Substance Reaction Event Type N.K.D.A. Info Not Available Non Drug Allergy Problems Problem Type Condition Code Onset Dates Condition Status Problem Other and unspecified hyperlipidemia E78.5 Active Problem Primary insomnia F51.01 Active Problem Drug-induced polyneuropathy G62.0 Active Problem Lumbago with sciatica, unspecified side M54.40 Active Problem Smoking F17.200 Active Problem Other chronic pain G89.29 Active Problem Other acute gastritis without hemorrhage K29.00 Active Problem Strickland''s esophagus without dysplasia K22.70 Active Problem Status post cholecystectomy Z90.49 Active Problem Idiopathic chronic pancreatitis K86.1 Active Assessment Smoking F17.200 Active Assessment Bunion, left M21.612 Active Problem Vasovagal syncope 780.2 Active Assessment Other chronic pain G89.29 Active Problem Essential hypertension I10 Active Assessment Lumbago with sciatica, unspecified side M54.40 Active Problem Cough variant asthma 493.82 Active Medications Medication Code System Code Instructions Start Date End Date Status Dosage Metoprolol Tartrate ND 24273442149 25 MG Orally once a day Active 1 tablet Chantix Continuing Month Chris ND 23248385781 1 MG Orally Twice a day Jun 06, 2018 Active 1 tablet Nitrofurantoin Monohyd Macro ND 64460070748 100 MG Orally every 12 hrs Active 1 capsule with food Creon ND 30207822766 68322 UNIT Orally Active not defined Nexium ND 61167587637 40 Orally Once a day Active 1 capsule Lisinopril ND 42112077423 10 MG Orally Once a day Active 1 tablet BuPROPion HCl ND 40949483806 75 MG Orally daily Active 1 tablet Trazodone HCl ND 45446549908 100 mg Orally Once a day February 10, 2018 Active 1 tablet at bedtime Trazodone HCl [facility] 19960326962 100 mg Orally Once a day Sep 29, 2017 Active 1 tablet at bedtime as needed Albuterol Sulfate HFA [facility] [address]-15 108 (90 Base) MCG/ACT Inhalation every 12 hrs Dec 02, 2017 Active 2 puffs as needed Zofran ODT [facility] 80790139196 4 MG Orally twice a day (bid) as needed (prn) Jul 14, 2017 Active 1 tablet on the tongue and allow to dissolve Acyclovir [facility] 03041443784 400 MG Orally four times a day (qid) Active 1 tablet Chantix Starting Month Chris [facility] 29653870766 0.5 MG X 11 & 1 MG X 42 Orally as directed Nov 12, 2017 Active as directed Promethazine-DM [facility] 66479909353 6.25-15 MG/5ML Orally every 8 hrs Dec 02, 2017 Active 5 ml as needed Femara [facility] 63034567147 2.5 MG Orally Once a day Active 1 tablet Norvasc [facility] 06040076421 10 MG Orally Once a day Active 1 tablet Methocarbamol [facility] [address]-06 Active not defined Vital Signs Date/Time: May 07, 2018 BMI 22.39 Index Weight 143 lbs Height 67 in Temperature 97.2 F Blood Pressure Diastolic 88 mm Hg Blood Pressure Systolic 114 mm Hg Results No Known Results Summary Purpose [employer] Submission
--- OUTSIDE RECORDS SUMMARY | 2019-01-12 06:41 | XMS REPORT ---
Author Author Gurjit Ray Organization [employer] Address Unknown Phone Unavailable Care Team Providers Care Link Machine Operator Name Role Phone Gurjit Ray CP Unavailable Allergies No Known Allergies Problems Problem Type Condition Code Onset Dates Condition Status Problem Cough variant asthma 493.82 Active Problem HTN, Unspecified 401.9 Active Problem Hyperlipidemia, unspecified 272.4 Active Problem Vasovagal syncope 780.2 Active Medications No Known Medications Results No Known Results Summary Purpose [employer] Submission
--- OUTSIDE RECORDS SUMMARY | 2019-01-12 06:41 | XMS REPORT ---
Author Author Gurjit Ray Organization [employer] Address Unknown Phone Unavailable Care Team Providers Care Truckload Checker Name Role Phone Gurjit Ray CP Unavailable Allergies No Known Allergies Problems Problem Type Condition Code Onset Dates Condition Status Problem Vasovagal syncope 780.2 Active Problem Drug-induced polyneuropathy G62.0 Active Problem Other acute gastritis without hemorrhage K29.00 Active Problem Primary insomnia F51.01 Active Problem Cough variant asthma 493.82 Active Problem HTN, Unspecified 401.9 Active Problem Strickland''s esophagus without dysplasia K22.70 Active Problem Hyperlipidemia, unspecified 272.4 Active Medications No Known Medications Results No Known Results Summary Purpose [employer] Submission
--- OUTSIDE RECORDS SUMMARY | 2019-01-12 06:41 | XMS REPORT | Summary of Care ---
Author [facility] Address Unknown Phone Unavailable Encounter AIDEE Best(TRAVIS) [id number] Date(s): 04/30/16 - 05/29/16 [facility] Discharge Disposition: Home or Self Care Attending Physician: Rene Call MD Vital Signs No data available for [...] and Recorded Vaccine Date Status Refusal Reason influenza virus vaccine, inactivated 08/10/14 Given pneumococcal 23-valent vaccine 01/22/16 Given Procedures Procedure Date Related Diagnosis Body [...]
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
--- OUTSIDE RECORDS SUMMARY | 2019-01-12 06:41 | XMS REPORT ---
Author Author Gurjit Ray Organization [employer] Address Unknown Phone Unavailable Care Team Providers Care Restaurant Kitchen And Service Manager Name Role Phone Gurjit Ray CP Unavailable Allergies, Adverse Reactions, Alerts Substance Reaction Event Type N.K.D.A. Info Not Available Non Drug Allergy Problems Problem Type Condition Code Onset Dates Condition Status Problem Primary insomnia F51.01 Active Problem Other acute gastritis without hemorrhage K29.00 Active Problem Strickland''s esophagus without dysplasia K22.70 Active Problem Neuropathy G62.9 Active Problem Other chronic pain G89.29 Active Problem Arthritis M19.90 Active Problem Status post cholecystectomy Z90.49 Active Problem Idiopathic chronic pancreatitis K86.1 Active Problem Lumbago with sciatica, unspecified side M54.40 Active Problem Smoking F17.200 Active Assessment Oral ulcer K12.1 Active Assessment Other chronic pain G89.29 Active Assessment Smoking F17.200 Active Problem Essential hypertension I10 Active Assessment Low back pain M54.5 Active Problem Other and unspecified hyperlipidemia E78.5 Active Assessment Arthritis M19.90 Active Problem Drug-induced polyneuropathy G62.0 Active Medications Medication Code System Code Instructions Start Date End Date Status Dosage Trazodone HCl [facility] 34990756836 100 mg Orally Once a day February 10, 2018 Active 1 tablet at bedtime Methocarbamol [facility] 29304252774 500 MG Orally every 8 hrs Active 2 tablets Gabapentin [facility] 69218581340 800 MG Orally Twice a day Active 1 tablet Chantix Continuing Month Chris ND 69801075830 1 Orally Twice a day Active 1 tablet Acyclovir ND 36000685024 400 MG Orally four times a day (qid) Active 1 tablet Femara ND 36552534201 2.5 MG Orally Once a day Active 1 tablet Lisinopril [facility] 48572611637 10 MG Orally Once a day Active 1 tablet Lidocaine HCl [facility] [address]-04 5% topically Three times a day Active 1 gram Clotrimazole [facility] 99335069382 1 % Externally Twice a day Nov 16, 2018 January 11, 2019 Active 1 application to affected area Nexium ND 58713502396 40 Orally Once a day Active 1 capsule Zofran ODT ND 84284228676 8 MG Orally twice a day (bid) as needed (prn) Jul 14, 2017 Active 1 tablet on the tongue and allow to dissolve Lidocaine ND 32361931087 5 % Externally Three times a day Dec 23, 2018 Active 1 application to affected area as needed Tizanidine HCl [facility] 88633893373 2 MG Orally at bed time Dec 23, 2018 February 21, 2019 Active 1 tablet as needed Metoprolol Tartrate ND 51485852872 25 MG Orally once a day Active 1 tablet Vital Signs Date/Time: Dec 23, 2018 BMI 21.06 Index Weight 134.5 lbs Height 67 in Temperature 97.3 F Blood Pressure Diastolic 85 mm Hg Blood Pressure Systolic 109 mm Hg Results No Known Results Summary Purpose [employer]Clinical[employer] Submission
--- OUTSIDE RECORDS SUMMARY | 2019-01-12 06:41 | XMS REPORT ---
Author Author Gurjit Ray Organization [employer] Address Unknown Phone Unavailable Care Team Providers Care Seaman Name Role Phone Gurjit Ray CP Unavailable Allergies, Adverse Reactions, Alerts Substance Reaction Event Type N.K.D.A. Info Not Available Non Drug Allergy Problems Problem Type Condition Code Onset Dates Condition Status Assessment Cold sore B00.1 Active Problem Essential hypertension I10 Active Problem Vasovagal syncope 780.2 Active Problem Other acute gastritis without hemorrhage K29.00 Active Problem Strickland''s esophagus without dysplasia K22.70 Active Problem Idiopathic chronic pancreatitis K86.1 Active Problem Other and unspecified hyperlipidemia E78.5 Active Problem Cough variant asthma 493.82 Active Problem Primary insomnia F51.01 Active Problem Drug-induced polyneuropathy G62.0 Active Assessment Bunion of left foot M21.612 Active Assessment Other and unspecified hyperlipidemia E78.5 Active Assessment Strickland''s esophagus without dysplasia K22.70 Active Assessment Primary insomnia F51.01 Active Assessment Tobacco abuse counseling Z71.6 Active Assessment Essential hypertension I10 Active Assessment Idiopathic chronic pancreatitis K86.1 Active Medications Medication Code System Code Instructions Start Date End Date Status Dosage Acyclovir [facility] 94143761746 400 MG Orally four times a day (qid) Nov 12, 2017 Active 1 tablet Creon [facility] 56246962965 93484 UNIT Orally Active not defined Norvasc [facility] 30433180668 10 MG Orally Once a day Active 1 tablet Lisinopril [facility] 03134892109 10 MG Orally Once a day Active 1 tablet Methocarbamol [facility] [address]-64 Active not defined Chantix Starting Month Chris [facility] 13359465783 0.5 MG X 11 & 1 MG X 42 Orally as directed Nov 12, 2017 Active as directed Nexium [facility] 33037535425 40 mg Orally Once a day Jul 27, 2017 Active 1 capsule Metoprolol Tartrate [facility] 26291392308 25 MG Orally once a day Active 1 tablet Zofran ODT [facility] 72187350727 4 MG Orally twice a day (bid) as needed (prn) Jul 14, 2017 Active 1 tablet on the tongue and allow to dissolve Femara [facility] 85652949366 2.5 MG Orally Once a day Active 1 tablet Nitrofurantoin Monohyd Macro [facility] 71879720463 100 MG Orally every 12 hrs Active 1 capsule with food Trazodone HCl [facility] 59239668869 100 mg Orally Once a day Sep 29, 2017 Active 1 tablet at bedtime as needed Vital Signs Date/Time: Nov 12, 2017 BMI 24.43 Index Weight 156 lbs Height 67 in Temperature 98.0 F Blood Pressure Diastolic 86 mm Hg Blood Pressure Systolic 108 mm Hg Results No Known Results Summary Purpose e[employer]Works Submission
--- OUTSIDE RECORDS SUMMARY | 2019-01-12 06:41 | XMS REPORT ---
Author Author Gurjit Ray Organization [employer] Address Unknown Phone Unavailable Care Team Providers Care Patrol Supervisor Name Role Phone Gurjit Ray CP Unavailable Allergies, Adverse Reactions, Alerts Substance Reaction Event Type N.K.D.A. Info Not Available Non Drug Allergy Problems Problem Type Condition Code Onset Dates Condition Status Assessment Drug-induced polyneuropathy G62.0 Active Problem Vasovagal syncope 780.2 Active Assessment Adverse effect of antineoplastic and immunosuppressive drugs, initial encounter T45.1X5A Active Problem Drug-induced polyneuropathy G62.0 Active Problem Other acute gastritis without hemorrhage K29.00 Active Problem Primary insomnia F51.01 Active Problem Cough variant asthma 493.82 Active Problem HTN, Unspecified 401.9 Active Problem Strickland''s esophagus without dysplasia K22.70 Active Problem Hyperlipidemia, unspecified 272.4 Active Assessment Primary insomnia F51.01 Active Assessment Other acute gastritis without hemorrhage K29.00 Active Assessment Strickland''s esophagus without dysplasia K22.70 Active Medications Medication Code System Code Instructions Start Date End Date Status Dosage Trazodone HCl [facility] 77219432304 50 mg Orally Once a day Sep 29, 2017 Active 1 tablet at bedtime as needed Nexium ND 09968700632 40 mg Orally Once a day Jul 27, 2017 Active 1 capsule Nexium ND 77198589644 40 mg Orally Once a day Active 1 capsule Lisinopril ND 78865564666 10 MG Orally Once a day Active 1 tablet Zofran ODT [facility] 38227610946 4 MG Orally twice a day (bid) as needed (prn) Jul 14, 2017 Active 1 tablet on the tongue and allow to dissolve Norvasc [facility] 51354468675 10 MG Orally Once a day Active 1 tablet Nitrofurantoin Monohyd Macro ND 41922045191 100 MG Orally every 12 hrs Active 1 capsule with food Methocarbamol [facility] [address]-96 Active not defined Femara ND 26644959224 2.5 MG Orally Once a day Active 1 tablet Metoprolol Tartrate [facility] 53314077740 25 MG Orally once a day Active 1 tablet Vital Signs Date/Time: Sep 29, 2017 BMI 22.55 Index Weight 144 lbs Height 67 in Temperature 96.8 F Blood Pressure Diastolic 87 mm Hg Blood Pressure Systolic 112 mm Hg Results No Known Results Summary Purpose [employer]Works Submission
--- OUTSIDE RECORDS SUMMARY | 2019-01-12 06:41 | XMS REPORT ---
Author Author Gurjit Ray Organization [employer] Address Unknown Phone Unavailable Care Team Providers Care Lurer Name Role Phone Gurjit Ray CP Unavailable [...] Problem Idiopathic chronic pancreatitis K86.1 Active Assessment Strickland''s esophagus without dysplasia K22.70 Active Assessment Pain in left shoulder M25.512 Active Assessment Drug-induced polyneuropathy G62.0 Active Assessment Essential hypertension I10 Active Assessment Pain in right shoulder M25.511 Active Assessment Bunion, left foot M21.612 Active Assessment Primary insomnia F51.01 Active Problem Essential hypertension I10 Active Medications Medication Code System Code Instructions Start Date End Date Status Dosage Gabapentin ND 21121750769 300 MG Orally Once a day Active 1 capsule before bedtime BuPROPion HCl ND 07520613167 75 MG Orally daily Active 1 tablet Creon [facility] 97597137830 25498 UNIT Orally Active not defined Acyclovir ND 10902247484 400 MG Orally four times a day (qid) Active 1 tablet Methocarbamol [facility] [address]-65 Active not defined Nexium ND 88372999356 40 Orally Once a day Active 1 capsule Femara ND 96773644369 2.5 MG Orally Once a day Active 1 tablet Chantix Starting Month Chris ND 72825145141 0.5 MG X 11 & 1 MG X 42 Orally as directed Nov 12, 2017 Active as directed Promethazine-DM [facility] 82488987150 6.25-15 MG/5ML Orally every 8 hrs Dec 02, 2017 Active 5 ml as needed Metoprolol Tartrate [facility] 53565710452 25 MG Orally once a day Active 1 tablet Albuterol Sulfate HFA [facility] [address]-41 108 (90 Base) MCG/ACT Inhalation every 12 hrs Dec 02, 2017 Active 2 puffs as needed Zofran ODT [facility] 22068357136 4 MG Orally twice a day (bid) as needed (prn) Jul 14, 2017 Active 1 tablet on the tongue and allow to dissolve Lisinopril [facility] 35836619850 10 MG Orally Once a day Active 1 tablet Nitrofurantoin Monohyd Macro [facility] 24524881043 100 MG Orally every 12 hrs Active 1 capsule with food Trazodone HCl [facility] 42157506163 100 mg Orally Once a day February 10, 2018 Active 1 tablet at bedtime Norvasc [facility] 04027942686 10 MG Orally Once a day Active 1 tablet Vital Signs Date/Time: Jun 10, 2018 BMI 23.02 Index Weight 147 lbs Height 67 in Temperature 96.9 F Blood Pressure Diastolic 83 mm Hg Blood Pressure Systolic 108 mm Hg Results Name Result Date Reference Range Unit Abnormality Flag COMPREHENSIVE METABOLIC PANEL ----ALBUMIN/GLOBULIN RATIO 2.0 [id number] 1.0-2.5 (calc) N ----GLOBULIN 2.3 [id number] 1.9-3.7 g/dL (calc) N ----ALKALINE PHOSPHATASE 78 20180610 33-130 U/L N ----BILIRUBIN, TOTAL 0.6 20180610 0.2-1.2 mg/dL N ----CHLORIDE 93 20180610 98-110 mmol/L L ----ALT 15 20180610 6-29 U/L N ----POTASSIUM 4.9 20180610 3.5-5.3 mmol/L N ----AST 29 20180610 10-35 U/L N ----SODIUM 132 20180610 135-146 mmol/L L ----BUN/CREATININE RATIO NOT APPLICABLE 20180610 6-22 (calc) ----eGFR 78 20180610 > OR=60 mL/min/1.73m2 N ----CALCIUM 9.7 [id number] 8.6-10.4 mg/dL N ----CARBON DIOXIDE 26 20180610 20-32 mmol/L N ----ALBUMIN 4.5 20180610 3.6-5.1 g/dL N ----PROTEIN, TOTAL 6.8 20180610 6.1-8.1 g/dL N ----GLUCOSE 83 20180610 65-99 mg/dL N ----UREA NITROGEN (BUN) 16 20180610 7-25 mg/dL N ----CREATININE 0.94 20180610 0.50-1.05 mg/dL N ----eGFR NON-AFR. [place] 67 20180610 > OR=60 mL/min/1.73m2 N Summary Purpose eClinicalWorks Submission
--- OUTSIDE RECORDS SUMMARY | 2019-01-12 06:41 | XMS REPORT ---
Author Author Gurjit Ray Organization [employer] Address Unknown Phone Unavailable Care Team Providers Care Size Tester Name Role Phone Gurjit Ray CP Unavailable Allergies, Adverse Reactions, Alerts Substance Reaction Event Type N.K.D.A. Info Not Available Non Drug Allergy Problems Problem Type Condition Code Onset Dates Condition Status Problem Vasovagal syncope 780.2 Active Problem Cough variant asthma 493.82 Active Problem Essential hypertension I10 Active Assessment Fever blister B00.1 Active Assessment Primary insomnia F51.01 Active Problem Idiopathic chronic pancreatitis K86.1 Active Problem Other acute gastritis without hemorrhage K29.00 Active Problem Status post cholecystectomy Z90.49 Active Problem Drug-induced polyneuropathy G62.0 Active Problem Other and unspecified hyperlipidemia E78.5 Active Problem Strickland''s esophagus without dysplasia K22.70 Active Problem Primary insomnia F51.01 Active Medications Medication Code System Code Instructions Start Date End Date Status Dosage Metoprolol Tartrate [facility] 49808973922 25 MG Orally once a day Active 1 tablet Femara [facility] 73856813420 2.5 MG Orally Once a day Active 1 tablet BuPROPion HCl [facility] 50103623982 75 MG Orally daily January 14, 2018 Active 1 tablet Trazodone HCl [facility] 25164611238 50 mg Orally Once a day February 10, 2018 Inactive 1 tablet at bedtime as needed Acyclovir [facility] 57105735350 400 MG Orally four times a day (qid) Active 1 tablet Creon [facility] 22154167683 51592 UNIT Orally Active not defined Promethazine-DM [facility] 56976649490 6.25-15 MG/5ML Orally every 8 hrs Dec 02, 2017 Active 5 ml as needed Nexium [facility] 95615267352 40 mg Orally Once a day Active 1 capsule Albuterol Sulfate HFA [facility] [address]-30 108 (90 Base) MCG/ACT Inhalation every 12 hrs Dec 02, 2017 Active 2 puffs as needed Trazodone HCl [facility] 74463700665 100 MG Orally Once a day February 10, 2018 Active 1 tablet at bedtime Norvasc [facility] 49321631495 10 MG Orally Once a day Active 1 tablet Zofran ODT [facility] 15620334574 4 MG Orally twice a day (bid) as needed (prn) Jul 14, 2017 Active 1 tablet on the tongue and allow to dissolve Trazodone HCl [facility] 89395592491 100 mg Orally Once a day Sep 29, 2017 Active 1 tablet at bedtime as needed Nitrofurantoin Monohyd Macro [facility] 24076218349 100 MG Orally every 12 hrs Active 1 capsule with food Methocarbamol [facility] [address]-35 Active not defined Lisinopril [facility] 39478275567 10 MG Orally Once a day Active 1 tablet Chantix Starting Month Chris [facility] 58858643685 0.5 MG X 11 & 1 MG X 42 Orally as directed Nov 12, 2017 Active as directed Vital Signs Date/Time: February 10, 2018 BMI 22.55 Index Weight 144 lbs Height 67 in Temperature 97.2 F Blood Pressure Diastolic 90 mm Hg Blood Pressure Systolic 133 mm Hg Results No Known Results Summary Purpose eClinicalWorks Submission
--- OUTSIDE RECORDS SUMMARY | 2019-01-12 06:41 | XMS REPORT ---
Author Author Gurjit Ray Organization [employer] Address Unknown Phone Unavailable Care Team Providers Care Meeting/Event Planner Name Role Phone Gurjit Ray CP Unavailable [...] Start Date End Date Status Dosage Chantix Continuing Month [facility] 55440969952 1 MG Orally Twice a day Dec 11, 2017 February 09, 2018 Active 1 tablet Results No Known Results Summary Purpose eClinicalWorks Submission
--- OUTSIDE RECORDS SUMMARY | 2019-01-12 06:41 | XMS REPORT ---
Author Author Gurjit Ray Organization [employer] Address Unknown Phone Unavailable Care Team Providers Care Field Human Resources Manager Name Role Phone Gurjit Ray CP Unavailable Allergies No Known Allergies Problems Problem Type Condition Code Onset Dates Condition Status Problem Cough variant asthma 493.82 Active Problem HTN, Unspecified 401.9 Active Problem Hyperlipidemia, unspecified 272.4 Active Problem Vasovagal syncope 780.2 Active Medications No Known Medications Results No Known Results Summary Purpose eClinicalWorks Submission
--- OUTSIDE RECORDS SUMMARY | 2019-01-12 06:41 | XMS REPORT ---
Author Author Gurjit Ray Organization [employer] Address Unknown Phone Unavailable Care Team Providers Care In Flight Refueling Operator Name Role Phone Gurjit Ray CP Unavailable Allergies, Adverse Reactions, Alerts Substance Reaction Event Type N.K.D.A. Info Not Available Non Drug Allergy Problems Problem Type Condition Code Onset Dates Condition Status Problem Cough variant asthma 493.82 Active Problem HTN, Unspecified 401.9 Active Problem Hyperlipidemia, unspecified 272.4 Active Assessment Acute cystitis without hematuria N30.00 Active Assessment Hx of Clostridium difficile infection Z86.19 Active Problem Vasovagal syncope 780.2 Active Assessment Nausea R11.0 Active Medications Medication Code System Code Instructions Start Date End Date Status Dosage Zofran ODT [facility] [address]-82 4 MG Orally twice a day (bid) as needed (prn) Jul 14, 2017 Active 1 tablet on the tongue and allow to dissolve Culturelle [facility] [address] - Orally daily Jul 14, 2017 Jul 28, 2017 Active as directed Morphine Sulfate [facility] [address]-24 30 MG Orally every 12 hrs Active 1 tablet as needed Femara [facility] [address]-40 2.5 MG Orally Once a day Active 1 tablet Nitrofurantoin Monohyd Macro [facility] [address]-83 100 MG Orally every 12 hrs Active 1 capsule with food Protonix [facility] [address]-71 40 MG Orally Once a day Active 1 tablet Lisinopril [facility] [address]-93 10 MG Orally Once a day Active 1 tablet Acyclovir [facility] 08151281853 400 Active TAKE 1 TABLET BY MOUTH FOUR TIMES DAILY Metoprolol Tartrate [facility] [address]-04 25 MG Orally once a day Active 1 tablet Norvasc [facility] [address]-00 10 MG Orally Once a day Active 1 tablet Vital Signs Date/Time: Jul 14, 2017 BMI 21.69 Index Weight 138.5 lbs Height 67 in Temperature 96.3 F Blood Pressure Diastolic 96 mm Hg Blood Pressure Systolic 116 mm Hg Results No Known Results Summary Purpose eClinicalWorks Submission
--- OUTSIDE RECORDS SUMMARY | 2019-01-12 06:41 | XMS REPORT ---
Author Author Gurjit Ray Organization [employer] Address Unknown Phone Unavailable Care Team Providers Care Field Appraiser Name Role Phone Gurjit Ray CP Unavailable Allergies No Known Allergies Problems Problem Type Condition Code Onset Dates Condition Status Problem Vasovagal syncope 780.2 Active Problem Cough variant asthma 493.82 Active Problem Essential hypertension I10 Active Assessment Primary insomnia F51.01 Active Problem [...] End Date Status Dosage Trazodone HCl [facility] 21836611544 100 mg Orally Once a day February 10, 2018 Active 1 tablet at bedtime Results No Known Results Summary Purpose eClinicalWorks Submission
--- OUTSIDE RECORDS SUMMARY | 2019-01-12 06:41 | XMS REPORT ---
Author Author Gurjit Ray Organization [employer] Address Unknown Phone Unavailable Care Team Providers Care Remote Sensing Research Scientist Name Role Phone Gurjit Ray CP Unavailable [...] Active Problem Primary insomnia F51.01 Active Medications No Known Medications Results No Known Results Summary Purpose [employer]ClinicalWorks Submission
--- OUTSIDE RECORDS SUMMARY | 2019-01-12 06:41 | XMS REPORT ---
Author Author Gurjit Ray Organization [employer] Address Unknown Phone Unavailable Care Team Providers Care Integrated Circuit Fabricator Name Role Phone Gurjit Ray CP Unavailable Allergies, Adverse Reactions, Alerts Substance Reaction Event Type N.K.D.A. Info Not Available Non Drug Allergy Problems Problem Type Condition Code Onset Dates Condition Status Problem Cough variant asthma 493.82 Active Problem HTN, Unspecified 401.9 Active Problem Hyperlipidemia, unspecified 272.4 Active Assessment Diarrhea, unspecified type R19.7 Active Problem Vasovagal syncope 780.2 Active Assessment Pain of upper abdomen R10.10 Active Medications Medication Code System Code Instructions Start Date End Date Status Dosage Norvasc [facility] 64958612342 10 MG Orally Once a day Active 1 tablet Nitrofurantoin Monohyd Macro ND 53210083215 100 MG Orally every 12 hrs Active 1 capsule with food Metoprolol Tartrate ND 74687387761 25 MG Orally once a day Active 1 tablet Lisinopril ND 28727688335 10 MG Orally Once a day Active 1 tablet Zofran ODT [facility] 66304895865 4 MG Orally twice a day (bid) as needed (prn) Jul 14, 2017 Active 1 tablet on the tongue and allow to dissolve Nexium [facility] 15847106222 40 mg Orally Once a day Jul 27, 2017 Active 1 capsule Culturelle [facility] 23277547549 - Orally daily Jul 14, 2017 Jul 28, 2017 Active as directed Femara ND 31321526073 2.5 MG Orally Once a day Active 1 tablet Vital Signs Date/Time: Jul 27, 2017 BMI 21.45 Index Weight 137 lbs Height 67 in Temperature 97.8 F Blood Pressure Diastolic 77 mm Hg Blood Pressure Systolic 102 mm Hg Results No Known Results Summary Purpose eClinicalWorks Submission
--- OUTSIDE RECORDS SUMMARY | 2019-01-12 06:41 | XMS REPORT ---
Author Author Gurjit Ray Organization [employer] Address Unknown Phone Unavailable Care Team Providers Care Tool Engineer Name Role Phone Gurjit Ray CP Unavailable Allergies, Adverse Reactions, Alerts Substance Reaction Event Type N.K.D.A. Info Not Available Non Drug Allergy Problems Problem Type Condition Code Onset Dates Condition Status Problem Drug-induced polyneuropathy G62.0 Active Problem Strickland''s esophagus without dysplasia K22.70 Active Problem Primary insomnia F51.01 Active Problem Other chronic pain G89.29 Active Problem Lumbago with sciatica, unspecified side M54.40 Active Problem Neuropathy G62.9 Active Problem Idiopathic chronic pancreatitis K86.1 Active Problem Other acute gastritis without hemorrhage K29.00 Active Problem Smoking F17.200 Active Problem Status post cholecystectomy Z90.49 Active Assessment Hypotension due to drugs I95.2 Active Assessment Leg swelling M79.89 Active Assessment Smoking F17.200 Active Assessment Neuropathy G62.9 Active Problem Essential hypertension I10 Active Assessment Lumbago with sciatica, unspecified side M54.40 Active Problem Other and unspecified hyperlipidemia E78.5 Active Medications Medication Code System Code Instructions Start Date End Date Status Dosage Zofran ODT [facility] 96035535896 8 MG Orally twice a day (bid) as needed (prn) Jul 14, 2017 Active 1 tablet on the tongue and allow to dissolve Norvasc [facility] 81534724585 10 MG Orally Once a day Active 1 tablet Metoprolol Tartrate [facility] 26156380326 25 MG Orally once a day Active 1 tablet Gabapentin [facility] 54909716217 300 MG Orally Once a day Active 1 capsule before bedtime BuPROPion HCl [facility] 89931801219 75 MG Orally daily Active 1 tablet Gabapentin [facility] 22154722095 800 MG Orally Twice a day Active 1 tablet Chantix Starting Month Chris ND 68805721241 0.5 MG X 11 & 1 MG X 42 Orally as directed Nov 12, 2017 Inactive as directed Femara [facility] 41509700042 2.5 MG Orally Once a day Active 1 tablet Chantix Continuing Month Chris [facility] 09545243446 1 MG Orally Twice a day Sep 23, 2018 Oct 23, 2018 Active 1 tablet Creon [facility] 38861074712 [address] UNIT Orally Active not defined Promethazine-DM [facility] 52663089326 6.25-15 MG/5ML Orally every 8 hrs Dec 02, 2017 Active 5 ml as needed Nitrofurantoin Monohyd Macro ND 19850756987 100 MG Orally every 12 hrs Active 1 capsule with food Bromfed DM [facility] 67156896492 30-2-10 MG/5ML Orally every 6 hrs as needed Active 10 ml as needed Azithromycin [facility] 86513786254 250 MG Orally Once a day Active 2 tablets on the first day, then 1 tablet daily for 4 days Lisinopril [facility] 49380567885 10 MG Orally Once a day Active 1 tablet Methocarbamol [facility] [address]-99 Active not defined Medrol [facility] 18708835180 4 MG Orally as directed Active as directed Nexium [facility] 48253649305 40 Orally Once a day Active 1 capsule Acyclovir [facility] 31057504403 400 MG Orally four times a day (qid) Active 1 tablet Albuterol Sulfate HFA [facility] [address]-98 108 (90 Base) MCG/ACT Inhalation every 12 hrs Dec 02, 2017 Active 2 puffs as needed Trazodone HCl [facility] 73675462440 100 mg Orally Once a day February 10, 2018 Active 1 tablet at bedtime Vital Signs Date/Time: Sep 23, 2018 BMI 22.08 Index Weight 141 lbs Height 67 in Temperature 97.2 F Blood Pressure Diastolic 79 mm Hg Blood Pressure Systolic 109 mm Hg Results No Known Results Summary Purpose [employer]ClinicalWorks Submission
--- OUTSIDE RECORDS SUMMARY | 2019-01-12 06:41 | XMS REPORT ---
Author Author Gurjit Ray Organization [employer] Address Unknown Phone Unavailable Care Team Providers Care Social Security Specialist Name Role Phone Gurjit Ray CP Unavailable Allergies No Known Allergies Problems Problem Type Condition Code Onset Dates Condition Status Problem Vasovagal syncope 780.2 Active Assessment Cough, persistent R05 Active Problem Drug-induced polyneuropathy G62.0 Active Problem Other acute gastritis without hemorrhage K29.00 Active Problem Primary insomnia F51.01 Active Problem Cough variant asthma 493.82 Active Problem HTN, Unspecified 401.9 Active Problem Strickland''s esophagus without dysplasia K22.70 Active Problem Hyperlipidemia, unspecified 272.4 Active Medications No Known Medications Results No Known Results Summary Purpose eClinicalWorks Submission
--- OUTSIDE RECORDS SUMMARY | 2019-01-12 06:41 | XMS REPORT ---
Author Author Gurjit Ray Organization [employer] Address Unknown Phone Unavailable Care Team Providers Care Financial Recruiter Name Role Phone Gurjit Ray CP Unavailable Allergies No Known Allergies Problems Problem Type Condition Code Onset Dates Condition Status Problem Cough variant asthma 493.82 Active Problem HTN, Unspecified 401.9 Active Problem Hyperlipidemia, unspecified 272.4 Active Problem Vasovagal syncope 780.2 Active Medications No Known Medications Results No Known Results Summary Purpose [employer]ClinicalWorks Submission
--- OUTSIDE RECORDS SUMMARY | 2019-01-12 06:41 | XMS REPORT ---
Author Author Gurjit Ray Organization [employer] Address Unknown Phone Unavailable Care Team Providers Care Undercover Operator Name Role Phone Gurjit Ray CP Unavailable Allergies No Known Allergies Problems Problem Type Condition Code Onset Dates Condition Status Problem Cough variant asthma 493.82 Active Problem HTN, Unspecified 401.9 Active Problem Hyperlipidemia, unspecified 272.4 Active Problem Vasovagal syncope 780.2 Active Medications No Known Medications Results No Known Results Summary Purpose [employer]ClinicalWorks Submission
--- OUTSIDE RECORDS SUMMARY | 2019-01-12 06:41 | XMS REPORT ---
Author Author Gurjit Ray Organization [employer] Address Unknown Phone Unavailable Care Team Providers Care Hospice Music Therapy Name Role Phone Gurjit Ray CP Unavailable [...] Active Problem Primary insomnia F51.01 Active Assessment Status post cholecystectomy Z90.49 Active Assessment Acute tracheobronchitis J20.9 Active Assessment Flu-like symptoms R68.89 Active Medications Medication Code System Code Instructions Start Date End Date Status Dosage Trazodone HCl [facility] 17860554630 50 mg Orally Once a day Active 1 tablet at bedtime as needed Cefdinir ND 37123414697 300 MG Orally every 12 hrs Dec 02, 2017 Dec 12, 2017 Active 1 capsule Chantix Starting Month Chris ND 64049922281 0.5 MG X 11 & 1 MG X 42 Orally as directed Nov 12, 2017 Active as directed Zofran ODT [facility] 59389038893 4 MG Orally twice a day (bid) as needed (prn) Jul 14, 2017 Active 1 tablet on the tongue and allow to dissolve Creon ND 59768531733 07672 UNIT Orally Active not defined PredniSONE ND 11905394255 20 mg Orally Once a day Dec 02, 2017 Dec 07, 2017 Active 1 tablet Nitrofurantoin Monohyd Macro ND 96110862941 100 MG Orally every 12 hrs Active 1 capsule with food Methocarbamol [facility] [address]-97 Active not defined Femara ND 27810162883 2.5 MG Orally Once a day Active 1 tablet Metoprolol Tartrate [facility] 24372940981 25 MG Orally once a day Active 1 tablet Acyclovir [facility] 96941601496 400 MG Orally four times a day (qid) Nov 12, 2017 Active 1 tablet Trazodone HCl [facility] 35399571211 100 mg Orally Once a day Sep 29, 2017 Active 1 tablet at bedtime as needed Norvasc [facility] 66092374321 10 MG Orally Once a day Active 1 tablet Lisinopril [facility] 39903675541 10 MG Orally Once a day Active 1 tablet Albuterol Sulfate HFA [facility] [address]-76 108 (90 Base) MCG/ACT Inhalation every 12 hrs Dec 02, 2017 Active 2 puffs as needed Promethazine-DM [facility] 08773549833 6.25-15 MG/5ML Orally every 8 hrs Dec 02, 2017 Active 5 ml as needed Nexium [facility] 50759685358 40 mg Orally Once a day Jul 27, 2017 Active 1 capsule Vital Signs Date/Time: Dec 02, 2017 BMI 23.65 Index Weight 151 lbs Height 67 in Temperature 98.9 F Blood Pressure Diastolic 117 mm Hg Blood Pressure Systolic 133 mm Hg Results No Known Results Summary Purpose eClinicalWorks Submission
--- OUTSIDE RECORDS SUMMARY | 2019-01-12 06:42 | XMS REPORT ---
Author Author Gurjit Ray Organization [employer] Address Unknown Phone Unavailable Care Team Providers Care S[employer] Name Role Phone Gurjit Ray CP Unavailable Allergies No Known Allergies Problems Problem Type Condition Code Onset Dates Condition Status Problem Other and unspecified hyperlipidemia E78.5 Active Problem Primary insomnia F51.01 Active Problem Drug-induced polyneuropathy G62.0 Active Problem Essential hypertension I10 Active Problem Lumbago with sciatica, unspecified side M54.40 Active Problem Smoking F17.200 Active Problem Other chronic pain G89.29 Active Problem Other acute gastritis without hemorrhage K29.00 Active Problem Strickland''s esophagus without dysplasia K22.70 Active Problem Status post cholecystectomy Z90.49 Active Problem Idiopathic chronic pancreatitis K86.1 Active Medications No Known Medications Results No Known Results Summary Purpose eClinicalWorks Submission
--- OUTSIDE RECORDS SUMMARY | 2019-01-12 06:42 | XMS REPORT ---
Author Author Gurjit Ray Organization [employer] Address Unknown Phone Unavailable Care Team Providers Care Home Health Aid Name Role Phone Gurjit Ray CP Unavailable [...] End Date Status Dosage Chantix Starting Month [facility] 10835681536 0.5 MG X 11 & 1 MG X 42 Orally as directed Nov 12, 2017 Active as directed Results No Known Results Summary Purpose eClinicalWorks Submission
--- OUTSIDE RECORDS SUMMARY | 2019-01-12 06:42 | XMS REPORT ---
Author Author Gurjit Ray Organization [employer] Address Unknown Phone Unavailable Care Team Providers Care Terminal Computer Operator Name Role Phone Gurjit Ray CP Unavailable Allergies No Known Allergies Problems Problem Type Condition Code Onset Dates Condition Status Problem Drug-induced polyneuropathy G62.0 Active Problem Strickland''s esophagus without dysplasia K22.70 Active Problem Primary insomnia F51.01 Active Problem Essential hypertension I10 Active Problem Other and unspecified hyperlipidemia E78.5 Active Problem Other chronic pain G89.29 Active Problem Lumbago with sciatica, unspecified side M54.40 Active Problem Neuropathy G62.9 Active Problem Idiopathic chronic pancreatitis K86.1 Active Problem Other acute gastritis without hemorrhage K29.00 Active Problem Smoking F17.200 Active Problem Status post cholecystectomy Z90.49 Active Medications Medication Code System Code Instructions Start Date End Date Status Dosage Clotrimazole [facility] 83227897387 1 % Externally Twice a day Nov 16, 2018 January 11, 2019 Active 1 application to affected area Results No Known Results Summary Purpose eClinicalWorks Submission
--- OUTSIDE RECORDS SUMMARY | 2019-01-12 06:42 | XMS REPORT ---
Author Author [facility] Address Unknown Phone Unavailable Care Team Providers Care Textile Machine Operator Name Role Phone BROCK MORROW Unavailable Unavailable Payers Payer Name Policy Type Policy Number Effective Date Expiration Date Problems This patient has no known problems. Allergies, Adverse Reactions, Alerts Allergy Name Allergy Type Status Severity Reaction(s) Onset Date Inactive Date Treating Clinician Comments codeine DA Active HI 2018-03-02 00:00:00 adhesive tape DA Active HI 2018-03-02 00:00:00 Medications This patient has no known medications. Results Test Description Test Time Test Comments Text Results Atomic Results Result Comments BASIC METABOLIC PANEL 2019-01-07 13:48:00 SODIUM (test code=NA) 133 mmol/L 136-145 POTASSIUM (test code=K) 5.0 mmol/L 3.5-5.1 CHLORIDE (test code=CL) 99.0 mmol/L 98-107 CARBON DIOXIDE (test code=CO2) 27.0 mmol/L 21-32 ANION GAP (test code=GAP) 12.0 10-20 GLUCOSE (test code=GLU) 79 mg/dL 74-106 BLOOD UREA NITROGEN (test code=BUN) 10 mg/dL 7-18 GLOMERULAR FILTRATION RATE (test code=GFR) > 60 mL/min >=60 Estimated GFR by using Modified MDRD formula.Chronic kidney disease is defined as either kidney damageor GFR <60 mL/min/1.73 m2 for >3 months. CREATININE (test code=CREAT) 0.80 mg/dL 0.55-1.02 Note change in reference range due to change in reagent. BUN/CREATININE RATIO (test code=BUN/CREA) 12.8 10-20 CALCIUM (test code=CA) 9.1 mg/dL 8.5-10.1 BASIC METABOLIC [id number] 13:43:00* Test Item Value Reference Range Comments SODIUM (test code=NA) 133 mmol/L 136-145 POTASSIUM (test code=K) 5.0 mmol/L 3.5-5.1 CHLORIDE (test code=CL) 99.0 mmol/L 98-107 CARBON DIOXIDE (test code=CO2) mmol/L 21-32 ANION GAP (test code=GAP) 10-20 GLUCOSE (test code=GLU) mg/dL 74-106 BLOOD UREA NITROGEN (test code=BUN) mg/dL 7-18 GLOMERULAR FILTRATION RATE (test code=GFR) mL/min >=60 CREATININE (test code=CREAT) mg/dL 0.55-1.02 BUN/CREATININE RATIO (test code=BUN/CREA) 10-20 CALCIUM (test code=CA) mg/dL 8.5-10.1 BASIC METABOLIC [id number] 13:16:00* Test Item Value Reference Range Comments SODIUM (BEAKER) (test rqcv=714) 135 meq/L 136-145 POTASSIUM (BEAKER) (test jahm=273) 4.5 meq/L 3.5-5.1 CHLORIDE (BEAKER) (test wpgo=765) 100 meq/L 98-107 CO2 (BEAKER) (test jgkc=248) 26 meq/L 22-29 BLOOD UREA NITROGEN (BEAKER) (test hfbh=958) 12 mg/dL 7-21 CREATININE (BEAKER) (test swgb=944) 1.14 mg/dL 0.57-1.25 GLUCOSE RANDOM (BEAKER) (test fsya=718) 104 mg/dL 70-105 CALCIUM (BEAKER) (test bkcm=776) 9.7 mg/dL 8.4-10.2 EGFR (BEAKER) (test sgfn=7074) 49 mL/min/1.73 sq m ESTIMATED GFR IS NOT ACCURATE CREATININE CLEARANCE IN PREDICTING GLOMERULAR FILTRATION RATE. ESTIMATED GFR IS NOT APPLICABLE FOR DIALYSIS PATIENTS. CBC (HEMOGRAM ONLY)2017-04-29 13:00:00* Test Item Value Reference Range Comments WHITE BLOOD CELL COUNT (BEAKER) (test cegi=495) 7.7 K/ L 4.0-10.0 RED BLOOD CELL COUNT (BEAKER) (test gjwr=971) 4.87 M/ L 4.00-5.00 HEMOGLOBIN (BEAKER) (test kawr=804) 14.9 GM/DL 12.0-15.0 HEMATOCRIT (BEAKER) (test ysry=787) 45.3 % 36.0-45.0 MEAN CORPUSCULAR VOLUME (BEAKER) (test peil=995) 92.9 fL 82.0-99.0 MEAN CORPUSCULAR HEMOGLOBIN (BEAKER) (test cooi=021) 30.5 pg 27.0-33.0 MEAN CORPUSCULAR HEMOGLOBIN CONC (BEAKER) (test gcdc=698) 32.8 GM/DL 32.0-36.0 RED CELL DISTRIBUTION WIDTH (BEAKER) (test vilg=379) 27.8 % 10.3-14.2 PLATELET COUNT (BEAKER) (test huvc=669) 306 K/CU MM 150-430 MEAN PLATELET VOLUME (BEAKER) (test pkvj=910) 8.8 fL 6.5-10.5 NUCLEATED RED BLOOD CELLS (BEAKER) (test kotz=357) 0 /100 WBC 0-0 0.00
--- OUTSIDE RECORDS SUMMARY | 2019-01-12 06:42 | XMS REPORT ---
Author Author Gurjit Ray Organization [employer] Address Unknown Phone Unavailable Care Team Providers Care Chef Broiler Or Fry Name Role Phone Gurjit Ray CP Unavailable Allergies, Adverse Reactions, Alerts Substance Reaction Event Type N.K.D.A. Info Not Available Non Drug Allergy Encounters Encounter Location Date Sick Visit/ Dr [place]Ry [place] May 06, 2016 Problems Problem Type Condition ICD-9 Code Onset Dates Condition Status Problem Cough variant asthma 493.82 Active Problem HTN, Unspecified 401.9 Active Problem Hyperlipidemia, unspecified 272.4 Active Assessment Barretts esophagus K22.70 Active Problem Vasovagal syncope 780.2 Active Assessment HTN (hypertension) I10 Active Medications Medication Code System Code Instructions Start Date End Date Status Dosage Lisinopril [facility] [address]-70 20 MG Orally Once a day Active 1 tablet Morphine Sulfate [facility] [address]-40 30 MG Orally every 12 hrs Active 1 tablet as needed [facility]vasc [facility] [address]-31 10 MG Orally Once a day Active 1 tablet Femara [facility] [address]-76 2.5 MG Orally Once a day Active 1 tablet Metoprolol Tartrate [facility] [address]-04 50 MG Orally once a day Active 1 tablet Acyclovir [facility] 66777627997 400 Active TAKE 1 TABLET BY MOUTH FOUR TIMES DAILY Protonix [facility] [address]-93 40 MG Orally Once a day Active 1 tablet Social History Social History Element Qualifiers Date Reported Tobacco Use: . Are you a: never smoker May 06, 2016 Use of recreational / street drugs? . Answer: No May 06, 2016 Do you have pets? . Status: Yes, Type: dog(s), cat(s) May 06, 2016 Marital Status: . Single May 06, 2016 Caffeine intake? . Status: Yes, What type: Coffee May 06, 2016 Do you exercise? . Answer: Yes, Type: biking May 06, 2016 Do you drink alcohol? . Status: No May 06, 2016 Travel outside [place]: . No May 06, 2016 Occupation: . [employer] May 06, 2016 Vital Signs Date/Time: May 06, 2016 Weight 138 lbs Height 67 in Temperature 95.9 F Blood Pressure Diastolic 82 mm Hg Blood Pressure Systolic 100 mm Hg Summary Purpose eClinicalWorks Submission
--- OUTSIDE RECORDS SUMMARY | 2019-01-12 06:42 | XMS REPORT ---
Author Author Gurjit Ray Organization [employer] Address Unknown Phone Unavailable Care Team Providers Care Servicing Manager Name Role Phone Gurjit Ray CP Unavailable Allergies, Adverse Reactions, Alerts Substance Reaction Event Type N.K.D.A. Info Not Available Non Drug Allergy Problems Problem Type Condition Code Onset Dates Condition Status Problem Other and unspecified hyperlipidemia E78.5 Active Problem Primary insomnia F51.01 Active Problem Drug-induced polyneuropathy G62.0 Active Assessment Acute pharyngitis, unspecified etiology J02.9 Active Problem Essential hypertension I10 Active Problem Lumbago with sciatica, unspecified side M54.40 Active Problem Smoking F17.200 Active Problem Other chronic pain G89.29 Active Problem Other acute gastritis without hemorrhage K29.00 Active Problem Strickland''s esophagus without dysplasia K22.70 Active Problem Status post cholecystectomy Z90.49 Active Problem Idiopathic chronic pancreatitis K86.1 Active Medications Medication Code System Code Instructions Start Date End Date Status Dosage Methocarbamol [facility] [address]-02 Active not defined Creon [facility] 33738108423 79563 UNIT Orally Active not defined Albuterol Sulfate HFA [facility] [address]-58 108 (90 Base) MCG/ACT Inhalation every 12 hrs Dec 02, 2017 Active 2 puffs as needed Promethazine-DM [facility] 63587476835 6.25-15 MG/5ML Orally every 8 hrs Dec 02, 2017 Active 5 ml as needed Acyclovir [facility] 82248820391 400 MG Orally four times a day (qid) Active 1 tablet Femara [facility] 82994045819 2.5 MG Orally Once a day Active 1 tablet Nitrofurantoin Monohyd Macro [facility] 53825546721 100 MG Orally every 12 hrs Active 1 capsule with food Trazodone HCl [facility] 90348307220 100 mg Orally Once a day February 10, 2018 Active 1 tablet at bedtime Zofran ODT [facility] 85020792701 4 MG Orally twice a day (bid) as needed (prn) Jul 14, 2017 Active 1 tablet on the tongue and allow to dissolve Metoprolol Tartrate [facility] 41387706935 25 MG Orally once a day Active 1 tablet Gabapentin [facility] 31464532563 300 MG Orally Once a day Active 1 capsule before bedtime Chantix Starting Month Chris [facility] 39921647697 0.5 MG X 11 & 1 MG X 42 Orally as directed Nov 12, 2017 Active as directed Azithromycin [facility] 28632308912 250 MG Orally Once a day Active 2 tablets on the first day, then 1 tablet daily for 4 days Lisinopril [facility] 59374758154 10 MG Orally Once a day Active 1 tablet BuPROPion HCl [facility] 17267702824 75 MG Orally daily Active 1 tablet Norvasc [facility] 12760534579 10 MG Orally Once a day Active 1 tablet Bromfed DM [facility] 26523180059 30-2-10 MG/5ML Orally every 6 hrs as needed Active 10 ml as needed Medrol [facility] 74671124817 4 MG Orally as directed Active as directed Nexium [facility] 10592085361 40 Orally Once a day Active 1 capsule Vital Signs Date/Time: Jul 15, 2018 BMI 23.02 Index Weight 147 lbs Height 67 in Temperature 97.1 F Blood Pressure Diastolic 96 mm Hg Blood Pressure Systolic 111 mm Hg Results No Known Results Summary Purpose eClinicalWorks Submission
--- OUTSIDE RECORDS SUMMARY | 2019-01-12 06:42 | XMS REPORT ---
Author Author Gurjit Ray Organization [employer] Address Unknown Phone Unavailable Care Team Providers Care Account Consultant Name Role Phone Gurjit Ray CP Unavailable [...] Problem Idiopathic chronic pancreatitis K86.1 Active Assessment Primary insomnia F51.01 Active Assessment Acute pharyngitis, unspecified etiology J02.9 Active Problem Essential hypertension I10 Active Medications Medication Code System Code Instructions Start Date End Date Status Dosage Trazodone HCl [facility] 04339519569 100 mg Orally Once a day February 10, 2018 Active 1 tablet at bedtime Results No Known Results Summary Purpose eClinicalWorks Submission
--- OUTSIDE RECORDS SUMMARY | 2019-01-12 06:42 | XMS REPORT ---
Author Author Gurjit Ray Organization e[employer] Address Unknown Phone Unavailable Care Team Providers Care Production Superintendent Hydro Name Role Phone Gurjit Ray CP Unavailable Allergies, Adverse Reactions, Alerts Substance Reaction Event Type N.K.D.A. Info Not Available Non Drug Allergy Encounters Encounter Location Date Sick Visit/ Dr Ray [place] May 06, 2016 [place] Oct 21, 2016 Problems Problem Type Condition ICD-9 Code Onset Dates Condition Status Problem Cough variant asthma 493.82 Active Problem HTN, Unspecified 401.9 Active Problem Hyperlipidemia, unspecified 272.4 Active Problem Vasovagal syncope 780.2 Active Assessment Acute gastroenteritis K52.9 Active Medications Medication Code System Code Instructions Start Date End Date Status Dosage Norvasc [facility] [address]-86 10 MG Orally Once a day Active 1 tablet Acyclovir [facility] 57179247295 400 Active TAKE 1 TABLET BY MOUTH FOUR TIMES DAILY Morphine Sulfate [facility] [address]-18 30 MG Orally every 12 hrs Active 1 tablet as needed Lisinopril [facility] [address]-01 20 MG Orally Once a day Active 1 tablet Metronidazole [facility] [address]-92 500 MG Orally every 8 hrs Oct 22, 2016 Nov 01, 2016 Active 1 tablet Protonix [facility] [address]-34 40 MG Orally Once a day Active 1 tablet Metoprolol Tartrate [facility] [address]-44 50 MG Orally once a day Active 1 tablet Femara [facility] [address]-38 2.5 MG Orally Once a day Active 1 tablet Promethazine HCl [facility] [address]-04 12.5 MG Orally three times a day (tid) as needed (prn) Oct 21, 2016 Oct 28, 2016 Active 1 tablet as needed Social History Social History Element Qualifiers Date Reported Tobacco Use: . Are you a: never smoker Oct 21, 2016 Use of recreational / street drugs? . Answer: No Oct 21, 2016 Do you have pets? . Status: Yes, Type: dog(s), cat(s) Oct 21, 2016 Marital Status: . Single Oct 21, 2016 Caffeine intake? . Status: Yes, What type: Coffee Oct 21, 2016 Do you exercise? . Answer: Yes, Type: biking Oct 21, 2016 Do you drink alcohol? . Status: No Oct 21, 2016 Travel outside [place]: . No Oct 21, 2016 Occupation: . [employer] Oct 21, 2016 Vital Signs Date/Time: Oct 21, 2016 Weight 153 lbs Height 67 in Temperature 99.3 F Blood Pressure Diastolic 103 mm Hg Blood Pressure Systolic 116 mm Hg Summary Purpose eClinicalWorks Submission
--- OUTSIDE RECORDS SUMMARY | 2019-01-12 06:42 | XMS REPORT ---
Author Author Gurjit Ray Organization [employer] Address Unknown Phone Unavailable Care Team Providers Care Outsewer Name Role Phone Gurjit Ray CP Unavailable [...] Start Date End Date Status Dosage Nexium [facility] [id number] Orally Once a day Active 1 capsule Results No Known Results Summary Purpose [employer] Submission
--- OUTSIDE RECORDS SUMMARY | 2019-01-12 06:42 | XMS REPORT ---
Author Author Gurjit Ray Organization [employer] Address Unknown Phone Unavailable Care Team Providers Care Fire Alarm Technician Name Role Phone Gurjit Ray CP Unavailable Encounters Encounter Location Date Sick Visit/ [place] only [place] May 06, 2016 [place] Visit [facility] [place] Oct 21, 2016 Clinical Advice During Business Hours [place] Oct 24, 2016 Problems Problem Type Condition ICD-9 Code Onset Dates Condition Status Problem Cough variant asthma 493.82 Active Problem HTN, Unspecified 401.9 Active Problem Hyperlipidemia, unspecified 272.4 Active Problem Vasovagal syncope 780.2 Active Social History Social History Element Qualifiers Date [...] . No Oct 21, 2016 Occupation: . [employer] Oct 21, 2016 Summary Purpose [employer] Submission
[2019-01-12 10:20] VITALS: BP 145/89
--- NOTE | 2019-01-17 17:58 | Operative Report ---
DATE OF PROCEDURE: 01/12/2019 SURGEON: Peter Huang MD PREOPERATIVE DIAGNOSIS: Symptomatic hardware, left hand. POSTOPERATIVE DIAGNOSIS: Symptomatic hardware, left hand. OPERATION/PROCEDURE PERFORMED: The patient underwent removal of the symptomatic hardware of the left hand. REST ROOM MATRON: Lorie Henderson. ANESTHESIA: General endotracheal intubation anesthesia. IV FLUIDS: Per the Anesthesia record. BRIEF DISCUSSION OF THE PATIENT'S OPERATIVE PROCEDURE: Ms. Calvin was taken to the operating room, placed in the supine position on the operating table. Following induction of general anesthesia as well as endotracheal intubation, the patient's left hand was evaluated under anesthesia. She had a well-healed incision overlying the left small finger metacarpal. Fluoroscopic evaluation of the hand demonstrated a plate on the dorsal surface of the left small finger metacarpal. The patient's upper extremity was prepped and draped in standard surgical fashion. The case was begun by reopening the previous incision. This incision was carried through the skin only. Blunt dissection was used to deepen the incision and the extensor tendon and abductor tendon for hand were identified and protected throughout the remainder of the case. Combinations of both sharp and blunt dissection were then used to elevate the soft tissues from the plate dorsally. The screws and the plate were then removed without difficulty. The fracture was assessed, found to be completely healed. The wound was copiously irrigated. The wound was then closed in a multilayer fashion. Sterile dressings were applied and the patient was placed in a well-padded ulnar gutter splint. She was then awakened and taken to the Postanesthesia Care Unit in stable condition. MD SHASHI Godinez/MODL /[id number]
== END | disposition home or self-care (01) ==
LOC: OR 06:33
PROVIDERS: ATTEND Specialist
DX: Z47.2 Encounter for removal of internal fixation device (principal); Z87.81 Personal history of (healed) traumatic fracture; I10 Essential (primary) hypertension; F41.8 Other specified anxiety disorders; K21.9 Gastro-esophageal reflux disease without esophagitis; Z01.812 Encounter for preprocedural laboratory examination; Z85.3 Personal history of malignant neoplasm of breast; Z87.891 Personal history of nicotine dependence
CPT/HCPCS: 20680; 36415; 85025; J0131; J0690; J1100; J2001; J2250; J2405; J2704; 76000

== ENCOUNTER 2025-05-20 11:33 | Emergency (ER) | payer OTHER ==
[~2025-05-20] VITALS: Ht 172.7 cm; Wt 58.6 kg
[~2025-05-20 11:33] MED LIST changes: -ACETAMINOPHEN 1000 MG/100 ML IV ONE; -BUPIVACAINE HCL 0.5% INJ 30 ML VIAL INJ ONE; -CEFAZOLIN SOD 2 GM/D5W 50ML 50 ML IV ONE; -DEXAMETHASONE SOD PHOS INJ 4 MG/ML VIAL ONE; -FENTANYL CITRATE/PF 100MCG/2 ML INJ ONE; -LIDOCAINE HCL 2% LOCAL INJ 5 ML SDV VIAL INJ ONE; -MIDAZOLAM HCL 2 MG/2 ML VIAL ONE; -ONDANSETRON HCL INJ 2MG/ML 2ML 2 MG/ML VIAL ONE; -PROPOFOL IV EMULSION 10 MG/ML 20 ML VIAL ONE; -SEVOFLURANE INHAL SOLN 250 ML PEN BTL ONE
[2025-05-20 11:40] VITALS: PULSE 110; RESP 18; TEMP 98.4
[2025-05-20 13:08] VITALS: BP 164/91; PULSE 85; RESP 17; TEMP 98.6; O2SAT 98
[2025-05-20] MEDS ORDERED: ACETAMINOPHEN-1 EAC4 PO (17:09)
[2025-05-20] MEDS ORDERED: ULTRAM 50MG50 MG PO (17:13)
[2025-05-20] MEDS ORDERED: IBUPROFEN600 MG PO (17:13)
== END 2025-05-20 13:05 | disposition home or self-care (01) ==
LOC: FSED 11:38
DX: M79.671 Pain in right foot (principal); S93.691A Other sprain of right foot, initial encounter; M25.474 Effusion, right foot; X50.1XXA Overexertion from prolonged static or awkward postures, initial encounter; Y93.01 Activity, walking, marching and hiking; Y92.89 Other specified places as the place of occurrence of the external cause
CPT/HCPCS: 99284